=== PATIENT | male | born 1955 | race Caucasian/White ===

== ENCOUNTER 2023-05-29 12:02 | Outpatient (OUT) | payer OTHER, SELFPAY ==
--- NOTE | 2023-05-29 | XR_ITS ---
The [address] [address] Patient Name: ARVIND LEA MRN: [id number] date: 1955 Sex: M Assigned Patient Location: LAB Current Patient Location: LAB Accession/Order Number: [id number] Exam Date: 05/29/2023 12:29 Report Date: 05/29/2023 13:02 At the request of: SAUL MIN Procedure: XR knee LT 3V PROCEDURE: XR knee LT 3V HISTORY: Left knee pain; M25.562 , acute; no known injury COMPARISON: None. FINDINGS: BONES:Small periarticular degenerative osteophytes along margins of patella. No fracture or dislocation. SOFT TISSUES:No visible soft tissue swelling. EFFUSION:None visible. OTHER: Negative. XR/XR knee LT 3V IMPRESSION: 1. Minimal degenerative changes. 2. No acute bone abnormality. Electronically authenticated by: FERCHO DIAZ Date: 05/29/2023 13:02
[2023-05-29 14:05] LABS: D Dimer 23.95 mg/L FEU (<=0.59)
== END 2023-05-29 12:03 | disposition home or self-care (01) ==
LOC: LAB 12:06
PROVIDERS: PCP Family Medicine; Visit Provider Family Medicine
DX: M79.669 Pain in unspecified lower leg (principal); M25.562 Pain in left knee
CPT/HCPCS: 36415; 73562; 85378

== ENCOUNTER 2023-05-29 14:34 | Emergency (ER) | payer OTHER, SELFPAY ==
[2023-05-29 14:42] VITALS: BP 140/80; PULSE 67; RESP 14; TEMP 36.4; O2SAT 99
--- NOTE | 2023-05-29 14:51 | US_ITS ---
The [place] [id number] Patient Name: ARVIND LEA MRN: [id number] date: 1955 Sex: M Assigned Patient Location: ER Current Patient Location: ED.[facility] Accession/Order Number: [id number] Exam Date: 05/29/2023 15:00 Report Date: 05/29/2023 15:46 At the request of: OLGA LEONARDO Procedure: US venous doppler LE LT EXAM: Vascular unilateral lower extremity venous duplex. HISTORY: 67 years old Male presenting with left lower extremity pain and swelling. Elevated d-dimer TECHNIQUE: Multiple images are obtained in the transverse and longitudinal dimensions. Color, grayscale, and Doppler imaging was performed. COMPARISON: None FINDINGS: Visualized venous structures of the left lower extremity demonstrate normal compressibility, phasicity, and augmentation from the level of the common femoral vein to the calf veins. Focused Doppler analysis in the visualized common femoral, femoral, popliteal, anterior tibial, posterior tibial and peroneal veins reveals normal flow with distal augmentation. Color Doppler evaluation of these veins is also normal. US/US venous doppler LE LT IMPRESSION: No ultrasound evidence of deep venous thrombosis. Electronically authenticated by: ABAD ABEBE Date: 05/29/2023 15:46
--- NOTE | 2023-05-29 15:49 | ED_ITS ---
HPI - General Adult General Chief complaint: Recheck/Abnormal Lab/Rx Stated complaint: ABNORMAL LAB VALUE Time Seen by Provider: 05/29/23 14:51 Source: patient Mode of arrival: walk-in History of Present Illness HPI narrative: Patient is a 67-year-old male who presents to the emergency department for an elevated D-dimer as an outpatient. He states he called his PCP office and reported left knee pain for the last 2 weeks, increasing in the left anterior knee joint. Today he had an outpatient x-ray of the left knee and his doctor ordered an outpatient D-dimer which was elevated. He has no chest pain, shortness of breath. He denies any other focal medical complaints. He has had no redness of the left knee, no redness or swelling of the left calf. He denies any injury to the left leg. No numbness or tingling. Related Data Previous Rx's Medication Instructions Recorded ketorolac 10 mg tablet 10 mg PO TID PRN pain #8 tabs 05/29/23 methocarbamol 750 mg tablet 750 mg PO TID PRN pain #20 tabs 05/29/23 methylprednisolone 4 mg tablets in See Rx Instructions .Route 05/29/23 a dose pack (Medrol (Cm)) .COMPLEX #21 ea Allergies Allergy/AdvReac Type Severity Reaction Status Date / Time cefaclor [From [facility]] Allergy Severe Verified 05/29/23 14:48 Review of Systems ROS Constitutional Denies: fever or chills Ears, nose, mouth, and throat Denies: throat pain or nasal congestion Cardiovascular Denies: chest pain Respiratory Denies: shortness of breath Gastrointestinal Denies: nausea or vomiting Musculoskeletal Reports: extremity pain, extremity swelling and joint pain; Denies: back pain or neck pain Integumentary/Breast Denies: rash Neurological Denies: headache Exam Narrative Exam Narrative: Gen.: Awake, alert, in no distress Head: Normocephalic, atraumatic ENT: Moist mucous membranes Respiratory: No respiratory distress Extremities: Moves extremities equally, Normal flexion and extension of the left knee with no appreciable swelling, redness of the knee joint. No pain out of proportion on palpation. Mild tenderness over the left medial knee with no laxity of the patella. Calves are soft and nontender bilaterally Psych: Normal mood and affect Neuro: No focal neuro deficit Skin: Warm, dry, intact Constitutional Vital Signs, click to edit/add: Last Vital Signs Temp 97.6 F 05/29/23 14:42 Pulse 67 05/29/23 14:42 Resp 14 05/29/23 14:42 BP 140/80 05/29/23 14:42 Pulse Ox 99 05/29/23 14:42 O2 Del Method Room Air 05/29/23 14:42 Course Vital Signs Vital signs: Vital Signs Temperature 97.6 F 05/29/23 14:42 Pulse Rate 67 05/29/23 14:42 Respiratory Rate 14 05/29/23 14:42 Blood Pressure 140/80 05/29/23 14:42 Pulse Oximetry 99 05/29/23 14:42 Oxygen Delivery Method Room Air 05/29/23 14:42 Temperature 97.6 F 05/29/23 14:42 Pulse Rate 67 05/29/23 14:42 Respiratory Rate 14 05/29/23 14:42 Blood Pressure 140/80 05/29/23 14:42 Pulse Oximetry 99 05/29/23 14:42 Oxygen Delivery Method Room Air 05/29/23 14:42 Medical Decision Making MDM Narrative Medical decision making narrative: Ultrasound the left lower extremity is negative as expected based on clinical exam. X-rays show the patient has mild arthritic changes to the left knee. He is started on NSAIDs, steroid taper and muscle relaxant for stiffness. Follow- up with orthopedics if needed and return to the ER if symptoms change or worsen. Patient requested an [place] bandage to take home, he is planning on going back to work today. Medical Records Medical records reviewed: Yes I reviewed the patient's medical records Imaging Data Venous US: Attestation: I have reviewed the pertinent imaging results. Radiologist's impression: ITS Impressions Venous Doppler Study 05/29/23 14:51 IMPRESSION: No ultrasound evidence of deep venous thrombosis. Electronically authenticated by: ABAD ABEBE Date: 05/29/2023 15:46 Discharge Plan Discharge Chief Complaint: Recheck/Abnormal Lab/Rx Clinical Impression: Acute pain of left knee Patient Disposition: Home, Self-Care Time of Disposition Decision: 15:46 Condition: Good Prescriptions / Home Meds: New ketorolac 10 mg tablet 10 mg PO TID PRN (Reason: pain) Qty: 8 0RF methocarbamol 750 mg tablet 750 mg PO TID PRN (Reason: pain) Qty: 20 0RF methylprednisolone [Medrol (Cm)] 4 mg tablets,dose pack See Rx Instructions .ROUTE .COMPLEX Qty: 21 0RF Rx Instructions: Taper as directed Instructions: Knee Pain (ED) Stand Alone Forms: Portal Instructions Referrals: SAUL MIN [Primary Care Provider] - 1 week Maurilio Coley MD [Physician] - 1 week
[2023-05-29] MEDS: PREDNISONE 20 MG TABLET 60 MG PO (15:53)
[2023-05-29 15:57] VITALS: BP 128/88; PULSE 88; RESP 18; O2SAT 98
== END 2023-05-29 15:58 | disposition home or self-care (01) ==
PROVIDERS: Emergency Provider Emergency Medicine Emergency Medical Services; PCP Family Medicine
DX: M79.669 Pain in unspecified lower leg (principal); M25.562 Pain in left knee; R79.89 Other specified abnormal findings of blood chemistry; M79.89 Other specified soft tissue disorders
CPT/HCPCS: 36415; 73562; 85378; 93971; 99284; J7512

== ENCOUNTER 2025-03-01 11:39 | Outpatient (OUT) | payer MEDICARE, OTHER, SELFPAY ==
--- OUTSIDE RECORDS SUMMARY | 2025-03-01 11:49 | XMS_ITS | CCD ---
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 Attending Provider Saul Min Unavailable SAUL MIN Referring Unavailable DO Saul Min Primary Care Provider DO Saul Min Attending Provider [phone] Saul Min DO Primary Care Provider Saul Min DO Attending Provider Saul Min Attending Unavailable Saul Min Primary Care Unavailable Saul Min Admitting Unavailable Allergies Allergy Classification Reported Allergen(s) Allergy Type Date of Onset Reaction(s) Facility (2 sources) cefaclor; Translations: [CEFACLOR] Drug Allergy 2 [facility] Repository (8 sources) Cefaclor Drug Allergy sensitve scalp [facility] Repository Medications Current Medications Medication Drug Class(es) Dates Sig (Normalized) Sig (Original) Albuterol Sulfate 90 mcg/actuation HFA aerosol inhaler (1 source) Start: 03-27-2024 Albuterol Sulfate 90 mcg/actuation HFA aerosol inhaler Active 2 INH INHALATION EVERY 4-6 HOURS as needed for shortness of breath or wheezing 6.7 7 March 27, 2024 12:00am azithromycin 250 mg oral tablet (2 sources) Macrolide Antimicrobial Start: 06-06-2023 Azithromycin 250 MG 2 tablets on day 1 Orally then take 1 tablet daily on days 2-5 for 5 days May, Active CoQ-10 (7 sources) CoQ-10 Active CoQ-10 200 mg (2 sources) Start: 03-03-2024 CoQ-10 200 mg Active PO March 02, 2024 11:00pm Start: 03-03-2024 CoQ-10 200 mg Active PO March 03, 2024 12:00am gabapentin 300 mg oral capsule (15 sources) Anti-epileptic Agent Start: 03-03-2024 take 1 capsule by mouth three times daily Gabapentin 300 mg capsule Active 300 MG PO Three times daily March 03, 2024 7:35am Start: 11-06-2023 End: 03-03-2024 take 1 capsule by mouth three times daily Gabapentin 300 mg capsule Discontinued 0 .ROUTE .COMPLEX 90 November 06, 2023 7:15am March 03, 2024 7:35am TAKE 1 CAPSULE BY MOUTH THREE TIMES A DAY Start: 09-21-2023 End: 11-06-2023 take 1 capsule by mouth twice daily Gabapentin 300 mg capsule Discontinued 300 MG PO Twice daily September 20, 2023 11:00pm November 06, 2023 7:15am take 1 capsule by mo [facility] three times daily Gabapentin 300 MG TAKE 1 CAPSULE BY MOUTH THREE TIMES A DAY Active meclizine hydrochloride 25 mg oral tablet (9 sources) Antiemetic Start: 03-03-2024 take 1 tablet by mouth three times daily as needed Meclizine 25 mg tablet Active 25 MG PO Three times daily as needed March 02, 2024 11:00pm Start: 08-10-2016 take 1 tablet by solomon three times daily as needed Meclizine HCl 25 mg 1 tablet Orally tid prn Jul, Active methylPREDNISolone 4 mg oral tablet (1 source) Corticosteroid Start: 03-27-2024 take 1 tablet by mouth once Methylprednisolone (Medrol (Cm)) 4 mg tablets,dose pack Active 0 PO per package directions March 27, 2024 12:00am PO PER PKG DIR Slwojrnz-Fta-Ecfns-Vit K-Lycop (Men's 50 Plus Multivitamin) 400-20-370 mcg tablet (2 sources) Start: 03-03-2024 take 50-400 tablets by mouth once daily Kyfnrhss-Fuk-Notpd-Vit K-Lycop (Men's 50 Plus Multivitamin) 400-20-370 mcg tablet Active 1 TAB PO Daily March 02, 2024 11:00pm Start: 03-03-2024 take 50-400 tablets by mouth once daily Bvtqbucp-Cxy-Lvokr-Vit K-Lycop (Men's 50 Plus Multivitamin) 400-20-370 mcg tablet Active 1 TAB PO Daily March 03, 2024 12:00am Volcano-3 Fatty Acids-Fish Oil (Fish Oil) 300-500 mg capsule (1 source) Start: 03-27-2024 Volcano-3 Fatty Acids-Fish Oil (Fish Oil) 300-500 mg capsule Active CAP PO March 27, 2024 12:00am Red Yeast Rice (7 sources) Red Yeast Rice A ctive red yeast rice 600 mg oral capsule (5 sources) Start: 03-03-2024 take 1 capsule by mouth once Red Yeast Rice 600 mg capsule Active 1200 MG PO Once March 03, 2024 7:17am give with meal/snack Start: 03-03-2024 take 1200 mg by mouth once Red Yeast Rice Active 1200 MG PO Once March 03, 2024 8:17am give with meal/snack Start: 09-21-2023 End: 03-03-2024 take 1 capsule by mouth twice daily Red Yeast Rice 600 mg capsule Discontinued 600 MG PO Twice daily September 20, 2023 11:00pm March 03, 2024 7:20am give with meal/snack Vitamin D (7 sources) Vitamin D Active Completed/Discontinued Medications Medication Drug Class(es) Dates Sig (Normalized) Sig (Original) amoxicillin 875 mg / clavulanate 125 mg oral tablet (3 sources) Penicillin-class Antibacterial Start: 09-21-2023 End: 03-03-2024 take 1 tablet by mouth twice daily Amoxicillin-Pot Clavulanate 875-125 mg tablet Discontinued 1 TAB PO Twice daily 08 03September 20, 2023 11:00pm March 03, 2024 7:16am B Complex - (7 sources) Start: 08-01-2018 take 1 tablet by mouth once daily as needed B Complex - 1 tablet Orally qd Jul, Not-Taking/PRN Start: 08-01-2018 take 1 tablet by solomon th once daily B Complex - 1 tablet Orally qd Jul, Not-Taking fluticasone propionate 0.05 mg/actuat metered dose nasal spray (7 sources) Corticosteroid take 1 spray(s) nasal route once daily as needed Fluticasone Propionate 50 MCG/ACT USE 1 SPRAY IN EACH NOSTRIL ONCE DAILY for 30 prn Not-Taking/PRN take 1 spray(s) nasa l route once daily as needed Fluticasone Propionate 50 MCG/ACT USE 1 SPRAY IN EACH NOSTRIL ONCE DAILY for 30 prn Not-Taking magnesium oxide 400 mg oral tablet (7 sources) Start: 08-01-2018 take 1 tablet by mouth every twenty-four hours Magnesium Oxide 400 MG 1 tablet Orally Once a day Jul, Not-Taking/PRN Multi Vitamin Mens (7 sources) take 1 tablet by mouth once daily as needed Multi Vitamin Mens 1 tablet Orally Once a day Not-Taking/PRN take 1 tablet by mouth once braden y Multi Vitamin Mens 1 tablet Orally Once a day Not-Taking Volcano 3 1000 MG (7 sources) take 1 capsule by mo uth once daily as needed Volcano 3 1000 MG 1 capsule Orally Once a day Not-Taking/PRN take 1 capsule by mouth once kenyetta ly Volcano 3 1000 MG 1 capsule Orally Once a day Not-Taking Problems Active Problems Problem Classification Problem Date Documented Da te Episodic/Chronic Conditions associated with dizziness or vertigo (8 sources) Meniere's disease; Translations: [Meniere's disease, unspecified ear] Chronic Disorders of lipid metabolism (12 sources) Hyperlipidemia; Translations: [Hyperlipidemia, unspecified] Chronic Other connective tissue disease (1 source) Pain in unspecified hand Episodic Other connective tissue disease (1 source) Pain in unspecified lower leg Episodic Other connective tissue disease (2 sources) Heel pain; Translations: [Pain in right foot] 03-03-2024 Episodic Other connective tissue disease (2 sources) Foot pain; Translations: [Pain in right foot] 03-03-2024 Episodic Other connective tissue disease (4 sources) Pain in right foot; Translations: [Pain in limb] 03-03-2024 Episodic Other gastrointestinal disorders (1 source) Diarrhea, unspecified; Translations: [DIARRHEA UNSPECIFIED] Onset: 06-05-2021 Episodic Other inflammatory condition of skin (7 sources) Psoriasis; Translations: [Psoriasis, unspecified] Chronic Other nervous system disorders (2 sources) Paresthesia of upper limb; Translations: [Anesthesia of skin] 03-03-2024 Episodic Other nervous system disorders (2 sources) Anesthesia of skin; Translations: [Disturbance of skin sensation] 03-03-2024 Episodic Other non-traumatic joint disorders (5 sources) Pain in left knee; Translations: [Left knee pain] Episodic Other nutritional; endocrine; and metabolic disorders (3 sources) Abnormal weight gain; Translations: [Abnormal weight gain] Episodic Other nutritional; endocrine; and metabolic disorders (2 sources) Weight increased; Translations: [Abnormal weight gain] 03-03-2024 Episodic Other screening for suspected conditions (not mental disorders or infectious disease) (12 sources) Encounter for screening for malignant neoplasm of prostate; Translations: [Patient encounter status] Episodic Other upper respiratory disease (8 sources) Allergic rhinitis; Translations: [Allergic rhinitis, unspecified] 03-27-2024 Chronic Other upper respiratory disease (1 source) Allergic rhinitis, unspecified; Translations: [Allergic rhinitis, cause unspecified] 03-27-2024 Chronic Other upper respiratory disease (1 source) Nasal congestion; Translations: [NASAL CONGESTION] Onset: 06-05-2021 Episodic Other upper respiratory infections (3 sources) Sinusitis; Translations: [Chronic sinusitis, unspecified] 09-21-2023 Chronic Spondylosis; intervertebral disc disorders; other back problems (5 sources) Cervicalgia; Translations: [Neck pain] Episodic Sprains and strains (1 source) Partial division, tendo calcaneus (Achilles tendon); Translations: [Strain of right Achilles tendon, initial encounter] 03-27-2024 Episodic Unclassified (2 sources) Family history of malignant neoplasm of digestive organs; Translations: [Family history of malignant neoplasm of breast] Onset: 11-13-2017 Episodic Unclassified (2 sources) CONTACT W/AND (SUSP) EXPOS COVID-19; Translations: [CONTACT W/AND (SUSP) EXPOS COVID-19] Onset: 06-05-2021 Viral infection (1 source) COVID-19; Translations: [COVID-19] Onset: 06-05-2021 Past or Other Problems Problem Classification Problem Date Documented Da te Episodic/Chronic Unclassified (1 source) CONTACT W/AND (SUSP) EXPOS COVID-19; Translations: [CONTACT W/AND (SUSP) EXPOS COVID-19] Onset: 06-01-2021 Results Test Name Value Interpretation Reference Range Facility Alanine aminotransferase [En zymatic activity/volume] in Serum or PlasmaOrdered By: Saul Min on 02-28-2024 ALT [Catalytic activity/Vol] 23 U/L Normal [facility] Comment on above: Performed By: #### T SH3, CMP, LIPID, CBC, PSAS #### [facility] [address] ALT [Catalytic activity/Vol] Alanine aminotransferase [Enzymatic activity/volume] in Serum or Plasma [facility] Albumin [Mass/volume] in Ser um or Plasma by Bromocresol green (BCG) dye binding methoOrdered By: Saul Min on 02-28-2024 Albumin BCG dye [Mass/Vol] 3.8 g/dL 3.5-5.7 [facility] Albumin BCG dye [Mass/Vol] Albumin [Mass/volume] in Serum or Plasma by Bromocresol green (BCG) dye binding metho 3.5-5.7 [facility] Alkaline phosphatase [Enzyma tic activity/volume] in Serum or PlasmaOrdered By: Saul Min on 02-28-2024 ALP [Catalytic activity/Vol] 57 U/L Normal [facility] Comment on above: Performed By: #### T SH3, CMP, LIPID, CBC, PSAS #### [facility] [address] [place] [address] ALP [Catalytic activity/Vol] Alkaline phosphatase [Enzymatic activity/volume] in Serum or Plasma [facility] Appearance of UrineOrdered B y: Saul Min on 02-28-2024 Appearance (U) Urine appearance Clear [facility] Aspartate aminotransferase [ Enzymatic activity/volume] in Serum or PlasmaOrdered By: Saul Min on 02-28-2024 AST [Catalytic activity/Vol] 22 U/L Normal [facility] Comment on above: Performed By: #### T SH3, CMP, LIPID, CBC, PSAS #### [facility] [address] [place] [address] AST [Catalytic activity/Vol] Aspartate aminotransferase [Enzymatic activity/volume] in Serum or Plasma [facility] Automated basophil %Ordered By: Saul Min on 02-28-2024 Basophils/100 WBC (Bld) 0.9 % Normal . [facility] Comment on above: Performed By: #### T SH3, CMP, LIPID, CBC, PSAS #### [address] Automated basophil countOrde red By: Saul Min on 02-28-2024 Basophils (Bld) [#/Vol] 0.1 10*3/uL Normal 0.0-0.2 [facility] Comment on above: Result Comment: PERF ORMED BY: [place] [address] PATHOLOGIST [employer] INTERN HODAN MEHTA M.D. Performed By: #### T SH3, CMP, LIPID, CBC, PSAS #### [address] Automated blood monocyte cou ntOrdered By: Saul Min on 02-28-2024 Monocytes (Bld) [#/Vol] 0.6 10*3/uL Normal 0.0-0.8 [facility] Comment on above: Performed By: #### T SH3, CMP, LIPID, CBC, PSAS #### [address] Automated eosinophil %Ordere d By: Saul Min on 02-28-2024 Eosinophils/100 WBC (Bld) 3.4 % Normal . [facility] Comment on above: Performed By: #### T SH3, CMP, LIPID, CBC, PSAS #### [address] Automated eosinophil countOr dered By: Saul Min on 02-28-2024 Eosinophils (Bld) [#/Vol] 0.3 10*3/uL Normal 0.0-0.45 [facility] Comment on above: Performed By: #### T SH3, CMP, LIPID, CBC, PSAS #### [address] Automated monocyte %Ordered By: Saul Min on 02-28-2024 Monocytes/100 WBC (Bld) 8.7 % Normal . [facility] Comment on above: Performed By: #### T SH3, CMP, LIPID, CBC, PSAS #### [facility] [address] Automated neutrophil %Ordere d By: Saul Min on 02-28-2024 Neutrophils/100 WBC (Bld) 47.0 % Normal . [facility] Comment on above: Performed By: #### T SH3, CMP, LIPID, CBC, PSAS #### [facility] [address] Bacteria [Presence] in Urine by AutomatedOrdered By: Saul Min on 02-28-2024 Bacteria Auto Ql (U) None seen [HPF] None Seen [facility] Bacteria Auto Ql (U) Bacteria [Presence] in Urine by Automated None Seen [facility] Basophils Auto (Bld) [#/Vol] Ordered By: Saul Min on 02-28-2024 Basophils (Bld) [#/Vol] Automated basophil count 0.0-0.2 [facility] Basophils/100 WBC Auto (Bld) Ordered By: Saul Min on 02-28-2024 Basophils/100 WBC (Bld) Automated basophil % . [facility] Bilirubin Test strip Ql (U)O rdered By: Saul Min on 02-28-2024 Bilirubin Ql (U) Negative Negative [facility] Bilirubin Ql (U) Bilirubin.total [Presence] in Urine by Test strip Negative [facility] Bilirubin.total [Mass/volume ] in Serum or PlasmaOrdered By: Saul Min on 02-28-2024 Bilirubin [Mass/Vol] 0.7 mg/dL Normal 0.3-1.0 [facility] Comment on above: Performed By: #### T SH3, CMP, LIPID, CBC, PSAS #### [facility] [address] Bilirubin [Mass/Vol] Bilirubin.total [Mass/volume] in Serum or Plasma 0.3-1.0 [facility] Calcium [Mass/volume] in Ser um or PlasmaOrdered By: Saul Min on 02-28-2024 Calcium [Mass/Vol] 8.7 mg/dL Normal 8.6-10.3 [facility] Comment on above: Performed By: #### T SH3, CMP, LIPID, CBC, PSAS #### [facility] [address] [place] [address] [place] Calcium [Mass/Vol] Calcium [Mass/volume ] in Serum or Plasma 8.6-10.3 [facility] Carbon dioxide, total [Moles /volume] in Serum or PlasmaOrdered By: Saul Min on 02-28-2024 CO2 [Moles/Vol] 30.8 mmol/L Normal 21.0-31.0 [facility] Comment on above: Performed By: #### T SH3, CMP, LIPID, CBC, PSAS #### [facility] [address] CO2 [Moles/Vol] Carbon dioxide, tota l [Moles/volume] in Serum or Plasma 21.0-31.0 [facility] Chloride [Moles/volume] in S lisbeth or PlasmaOrdered By: Saul Min on 02-28-2024 Chloride [Moles/Vol] 104 mmol/L Normal 98-107 [facility] Comment on above: Performed By: #### T SH3, CMP, LIPID, CBC, PSAS #### [facility] [address] [place] [id number] [place] Chloride [Moles/Vol] Chloride [Moles/vol ume] in Serum or Plasma 98-107 [facility] Cholesterol [Mass/volume] in Serum or PlasmaOrdered By: Saul Min on 02-28-2024 Cholesterol [Mass/Vol] 188 mg/dL Normal 140-200 [facility] Comment on above: Chol less than 200 m g/dl low riskChol 201-239 mg/dl borderline riskChol 240 mg/dl and greater high risk Result Comment: Chol less than 200 mg/dl low risk Chol 201-239 mg/dl borderline risk Chol 240 mg/dl and greater high risk Performed By: #### T SH3, CMP, LIPID, CBC, PSAS #### [facility] [address] Cholesterol [Mass/Vol] Cholesterol [Mass/volume] in Serum or Plasma 140-200 [facility] Comment on above: Chol less than 200 m g/dl low riskChol 201-239 mg/dl borderline riskChol 240 mg/dl and greater high risk Cholesterol in HDL [Mass/vol ume] in Serum or PlasmaOrdered By: Saul Min on 02-28-2024 Cholesterol in HDL [Mass/Vol] Serum or plasma high density lipoprotein (HDL) cholesterol measurement [facility] Comment on above: HDL CHOL ATP-III CLA SSIFICATION Cardiovascular RiskHDL > or equal to 60 mg/dL LOWHDL < 40 mg/dL HIGH Cholesterol in LDL Calc [Mas s/Vol]Ordered By: Saul Min on 02-28-2024 Cholesterol in LDL [Mass/Vol] 134 mg/dL High 0-100 [facility] Comment on above: LDL ATP III CLASSIFI CATIONLDL less than 100 mg/dL OptimalLDL 100-129 mg/dL Near or above optimalLDL 130-159 mg/dL Borderline highLDL 160-189 mg/dL HighLDL greater than 189 mg/dL Very high Cholesterol in LDL [Mass/Vol] Cholesterol in LDL [Mass/volume] in Serum or Plasma by calculation High 0-100 [facility] Comment on above: LDL ATP III CLASSIFI CATIONLDL less than 100 mg/dL OptimalLDL 100-129 mg/dL Near or above optimalLDL 130-159 mg/dL Borderline highLDL 160-189 mg/dL HighLDL greater than 189 mg/dL Very high Cholesterol in VLDL Calc [Ma ss/Vol]Ordered By: Saul Min on 02-28-2024 Cholesterol in VLDL [Mass/Vol] 17 mg/dL [facility] Cholesterol in VLDL [Mass/Vol] Cholesterol in VLDL [Mass/volume] in Serum or Plasma by calculation [facility] Color Auto (U)Ordered By: Johnnie Min on 02-28-2024 Color (U) Color of Urine by Auto Yellow [facility] Color of Urine by AutoOrdere d By: Saul Min on 02-28-2024 Color (U) Light-yellow Normal Yellow [facility] Comment on above: Order Comment: Name Collection Type:: Clean-Voided Midstream Performed By: #### C UU, ADDONUAPLUS #### [address] Complete Blood Count Auto Di ffon 02-28-2024 Mean Corpuscular HGB Conc 34.5 g/dL Normal 32.5-35.6 [facility] Comment on above: Performed By: #### T SH3, CMP, LIPID, CBC, PSAS #### [address] NRBC% 0.3 /100{WBC} Normal 0-0.5 [facility] Comment on above: Performed By: #### T SH3, CMP, LIPID, CBC, PSAS #### [address] Comprehensive Metabolic Pane franky 02-28-2024 Albumin [Mass/Vol] 3.8 g/dL Normal 3.5-5.7 [facility] Comment on above: Performed By: #### T SH3, CMP, LIPID, CBC, PSAS #### [address] GFR/1.73 sq M.predicted MDRD (S/P/Bld) [Vol rate/Area] mL/min/{1.73_m2} Normal [facility] Comment on above: Performed By: #### T SH3, CMP, LIPID, CBC, PSAS #### [address] Creatinine [Mass/volume] in Serum or PlasmaOrdered By: Saul Min on 02-28-2024 Creatinine [Mass/Vol] 1.30 mg/dL Normal 0.70-1.30 [facility] Comment on above: Performed By: #### T SH3, CMP, LIPID, CBC, PSAS #### [address] Creatinine [Mass/Vol] Creatinine [Mass/v olume] in Serum or Plasma 0.70-1.30 [facility] Dipstick and Microscopicon 1 Bacteria,Urine None Seen Normal None Seen [facility] Comment on above: Order Comment: Name Collection Type:: Clean-Voided Midstream Performed By: #### C UU, ADDONUAPLUS #### [address] Bilirubin,Urine Negative Normal Negative [facility] Comment on above: Order Comment: Name Collection Type:: Clean-Voided Midstream Performed By: #### C UU, ADDONUAPLUS #### [address] Glucose Ql (U) Normal Normal Normal [facility] Comment on above: Order Comment: Name Collection Type:: Clean-Voided Midstream Performed By: #### C UU, ADDONUAPLUS #### [address] Hyaline Casts,Urine None Normal 0-8 [facility] Comment on above: Order Comment: Name Collection Type:: Clean-Voided Midstream Result Comment: PERF ORMED BY: [place] [address] PATHOLOG[employer]N HODAN MEHTA M.D. Performed By: #### C UU, ADDONUAPLUS #### [address] Nitrite,Urine Negative Normal Negative [facility] Comment on above: Order Comment: Name Collection Type:: Clean-Voided Midstream Performed By: #### C UU, ADDONUAPLUS #### [address] Occult Blood,Urine Negative Normal Negative [facility] Comment on above: Order Comment: Name Collection Type:: Clean-Voided Midstream Performed By: #### C UU, ADDONUAPLUS #### [place] [address] [place] Protein,Urine Negative Normal Negative [facility] Comment on above: Order Comment: Name Collection Type:: Clean-Voided Midstream Performed By: #### C UU, ADDONUAPLUS #### [place] [address] [place] RBC,Urine 1-2 Normal 0-4 [facility] Comment on above: Order Comment: Name Collection Type:: Clean-Voided Midstream Performed By: #### C UU, ADDONUAPLUS #### [address] [place] [address] [place] Specificy [place],Urine 1.014 Normal 1.00 1-1.03 0 [facility] Comment on above: Order Comment: Name Collection Type:: Clean-Voided Midstream Performed By: #### C UU, ADDONUAPLUS #### [facility] [address] Urobilinogen,Urine Normal Normal Normal [facility] Comment on above: Order Comment: Name Collection Type:: Clean-Voided Midstream Performed By: #### C UU, ADDONUAPLUS #### [facility] [address] WBC,Urine 1-2 Normal 0-4 [facility] Comment on above: Order Comment: Name Collection Type:: Clean-Voided Midstream Performed By: #### C UU, ADDONUAPLUS #### [address] Eosinophils Auto (Bld) [#/Vo l]Ordered By: Saul Min on 02-28-2024 Eosinophils (Bld) [#/Vol] Automated eosinophil count 0.0-0.45 [facility] Eosinophils/100 WBC Auto (Bl d)Ordered By: Saul Min on 02-28-2024 Eosinophils/100 WBC (Bld) Automated eosinophil % . [facility] Epithelial cells.squamous [# /area] in Urine sediment by Automated countOrdered By: Saul Min on 02-28-2024 Epithelial cells.squamous Auto (Urine sed) [#/Area] N/A [facility] Epithelial cells.squamous Auto (Urine sed) [#/Area] Epithelial cells.squamous [#/area] in Urine sediment by Automated count [facility] Erythrocyte distribution wid th Auto (RBC) [Ratio]Ordered By: Saul Min on 02-28-2024 Erythrocyte distribution width (RBC) [Ratio] Erythrocyte distribution width [Ratio] by Automated count 12.0-14.8 [facility] Erythrocyte distribution wid th [Ratio] by Automated countOrdered By: Saul Min on 02-28-2024 Erythrocyte distribution width (RBC) [Ratio] 13.9 % Normal 12.0-14.8 [facility] Comment on above: Performed By: #### T SH3, CMP, LIPID, CBC, PSAS #### [facility] [address] [place] [address] [place] Erythrocytes [#/area] in Uri ne sediment by Automated countOrdered By: Saul Min on 02-28-2024 RBC Auto (Urine sed) [#/Area] 1-2 [HPF] 0-4 [facility] RBC Auto (Urine sed) [#/Area] Erythrocytes [#/area] in Urine sediment by Automated count 0-4 [facility] Erythrocytes [#/volume] in B lood by Automated countOrdered By: Saul Min on 02-28-2024 RBC (Bld) [#/Vol] 4.71 10*6/uL Normal 3.90-5.60 [facility] Comment on above: Performed By: #### T SH3, CMP, LIPID, CBC, PSAS #### [facility] [address] Globulin Calc (S) [Mass/Vol] Ordered By: Saul Min on 02-28-2024 Globulin (S) [Mass/Vol] Serum globulin measurement by calculation (mass/volume) [facility] Glucose [Mass/volume] in Ser um or PlasmaOrdered By: Saul Min on 02-28-2024 Glucose [Mass/Vol] 84 mg/dL Normal 70-100 [facility] Comment on above: ADA recommended refe rence rangeRandom Glucose Reference Range is dependent on time and content of last meal. Glucose of more than 200 mg/dL in a nonstressed, ambulatory subject supports the diagnosis of Diabetes Mellitus. Result Comment: [place] Glucose Reference Range is dependent on time and content of last meal. Glucose of more than 200 mg/dL in a nonstressed, ambulatory subject supports the diagnosis of Diabetes Mellitus. ADA recommended reference range Performed By: #### T SH3, CMP, LIPID, CBC, PSAS #### [facility] [address] Glucose [Mass/Vol] Glucose [Mass/volume ] in Serum or Plasma 70-100 [facility] Comment on above: ADA recommended refe rence rangeRandom Glucose Reference Range is dependent on time and content of last meal. Glucose of more than 200 mg/dL in a nonstressed, ambulatory subject supports the diagnosis of Diabetes Mellitus. Glucose [Mass/volume] in Uri ne by Test stripOrdered By: Saul Min on 02-28-2024 Glucose Test strip (U) [Mass/Vol] Normal mg/dL Normal [facility] Glucose Test strip (U) [Mass/Vol] Glucose [Mass/volume] in Urine by Test strip Normal [facility] Hematocrit Auto (Bld) [Volum e fraction]Ordered By: Saul Min on 02-28-2024 Hematocrit (Bld) [Volume fraction] Hematocrit [Volume Fraction] of Blood by Automated count 38.8-50.0 [facility] Hematocrit [Volume Fraction] of Blood by Automated countOrdered By: Saul Min on 02-28-2024 Hematocrit (Bld) [Volume fraction] 42.2 % Normal 38.8-50.0 [facility] Comment on above: Performed By: #### T SH3, CMP, LIPID, CBC, PSAS #### [facility] [address] Hemoglobin Test strip Ql (U) Ordered By: Saul Min on 02-28-2024 Hemoglobin Ql (U) Negative Negative [facility] Hemoglobin Ql (U) Hemoglobin [Presence ] in Urine by Test strip Negative [facility] Hemoglobin [Mass/volume] in BloodOrdered By: Saul Min on 02-28-2024 Hemoglobin (Bld) [Mass/Vol] 14.6 g/dL Normal 13.0-17.0 [facility] Comment on above: Performed By: #### T SH3, CMP, LIPID, CBC, PSAS #### [facility] [address] Hemoglobin (Bld) [Mass/Vol] Hemoglobin [Mass/volume] in Blood 13.0-17.0 [facility] Hyaline casts [#/area] in Ur ine sediment by Automated countOrdered By: Saul Min on 02-28-2024 Hyaline casts Auto (Urine sed) [#/Area] None [LPF] 0-8 [facility] Hyaline casts Auto (Urine sed) [#/Area] Hyaline casts [#/area] in Urine sediment by Automated count 0-8 [facility] Ketones Test strip Ql (U)Ord ered By: Saul Min on 02-28-2024 Ketones Ql (U) Ketones [Presence] i n Urine by Test strip Negative [facility] Ketones [Presence] in Urine by Test stripOrdered By: Saul Min on 02-28-2024 Ketones Ql (U) Negative Normal Negative [facility] Comment on above: Order Comment: Name Collection Type:: Clean-Voided Midstream Performed By: #### C UU, ADDONUAPLUS #### [facility] [address] [place] [address] Laboratory - Microbiology an d Antimicrobial susceptibilityOrdered By: Saul Min on 02-28-2024 Bacteria identified Cx Nom (U) No Growth 2 Days [facility] Leukocyte esterase [Presence ] in Urine by Test stripOrdered By: Saul Min on 02-28-2024 Leukocyte esterase Test strip Ql (U) Negative Normal Negative [facility] Comment on above: Order Comment: Name Collection Type:: Clean-Voided Midstream Performed By: #### C UU, ADDONUAPLUS #### [facility] [address] [place] [address] Leukocyte esterase Test strip Ql (U) Leukocyte esterase [Presence] in Urine by Test strip Negative [facility] Leukocytes [#/area] in Urine sediment by Automated countOrdered By: Saul Min on 02-28-2024 WBC Auto (Urine sed) [#/Area] 1-2 [HPF] 0-4 [facility] WBC Auto (Urine sed) [#/Area] Leukocytes [#/area] in Urine sediment by Automated count 0-4 [facility] Leukocytes [#/volume] correc sulma for nucleated erythrocytes in Blood by Automated counOrdered By: Saul Min on 02-28-2024 WBC corrected for nucl RBC Auto (Bld) [#/Vol] 7.4 10*3/uL 4.1-10.5 [facility] WBC corrected for nucl RBC Auto (Bld) [#/Vol] Leukocytes [#/volume] corrected for nucleated erythrocytes in Blood by Automated coun 4.1-10.5 [facility] Leukocytes [#/volume] in Blo od by Automated countOrdered By: Saul Min on 02-28-2024 WBC (Bld) [#/Vol] 7.4 10*3/uL Normal 4.1-10.5 [facility] Comment on above: Performed By: #### T SH3, CMP, LIPID, CBC, PSAS #### [facility] [address] Lipid Panelon 02-28-2024 LDL Cholesterol,Calculated 134 mg/dL High 0-100 [facility] Comment on above: Result Comment: LDL ATP III CLASSIFICATION LDL less than 100 mg/dL Optimal LDL 100-129 mg/dL Near or above optimal LDL 130-159 mg/dL Borderline high LDL 160-189 mg/dL High LDL greater than 189 mg/dL Very high Performed By: #### T SH3, CMP, LIPID, CBC, PSAS #### [facility] [address] Triglyceride w/Reflex 89 mg/dL Normal 0-149 [facility] Comment on above: Result Comment: TRIG ATP III CLASSIFICATION TRIG less than 150 mg/dL Normal TRIG 150-199 mg/dL Borderline high TRIG 200-500 mg/dL High TRIG greater than 500 mg/dL Very high Standard traceable to the Center for Disease Conrtrol and Prevention (CDC) test method. Performed By: #### T SH3, CMP, LIPID, CBC, PSAS #### [address] VLDL CHOLESTEROL 17 mg/dL Normal [facility] Comment on above: Performed By: #### T SH3, CMP, LIPID, CBC, PSAS #### [facility] [address] Lymphocytes Auto (Bld) [#/Vo l]Ordered By: Saul Min on 02-28-2024 Lymphocytes (Bld) [#/Vol] Lymphocytes [#/volume] in Blood by Automated count 1.00-4.8 [facility] Lymphocytes [#/volume] in Bl ood by Automated countOrdered By: Saul Min on 02-28-2024 Lymphocytes (Bld) [#/Vol] 3.0 10*3/uL Normal 1.00-4.8 [facility] Comment on above: Performed By: #### T SH3, CMP, LIPID, CBC, PSAS #### [facility] [address] [place] [address] Lymphocytes/100 WBC Auto (Bl d)Ordered By: Saul Min on 02-28-2024 Lymphocytes/100 WBC (Bld) Lymphocytes/100 leukocytes in Blood by Automated count . [facility] Lymphocytes/100 leukocytes i n Blood by Automated countOrdered By: Saul Min on 02-28-2024 Lymphocytes/100 WBC (Bld) 40.0 % Normal . [facility] Comment on above: Performed By: #### T SH3, CMP, LIPID, CBC, PSAS #### [address] MCH Auto (RBC) [Entitic mass ]Ordered By: Saul Min on 02-28-2024 MCH (RBC) [Entitic mass] MCH [Entitic mass] by Automated count 27.5-35.2 [facility] MCH [Entitic mass] by Automa sulma countOrdered By: Saul Min on 02-28-2024 MCH (RBC) [Entitic mass] 31.0 pg Normal 27.5-35.2 [facility] Comment on above: Performed By: #### T SH3, CMP, LIPID, CBC, PSAS #### [facility] [address] [place] [address] MCHC Auto (RBC) [Mass/Vol]Or dered By: Saul Min on 02-28-2024 MCHC (RBC) [Mass/Vol] 34.5 g/dL 32.5-35.6 [facility] MCHC (RBC) [Mass/Vol] MCHC [Mass/volume] by Automated count 32.5-35.6 [facility] MCV Auto (RBC) [Entitic vol] Ordered By: Saul Min on 02-28-2024 MCV (RBC) [Entitic vol] MCV [Entitic vol ume] by Automated count 83.5-101 [facility] MCV [Entitic volume] by Auto mated countOrdered By: Saul Min on 02-28-2024 MCV (RBC) [Entitic vol] 89.7 fL Normal 83.5-101 [facility] Comment on above: Performed By: #### T SH3, CMP, LIPID, CBC, PSAS #### [facility] [address] Monocytes Auto (Bld) [#/Vol] Ordered By: Saul Min on 02-28-2024 Monocytes (Bld) [#/Vol] Automated blood monocyte count 0.0-0.8 [facility] Monocytes/100 WBC Auto (Bld) Ordered By: Saul Min on 02-28-2024 Monocytes/100 WBC (Bld) Automated monocyte % . [facility] Neutrophils Auto (Bld) [#/Vo l]Ordered By: Saul Min on 02-28-2024 Neutrophils (Bld) [#/Vol] Neutrophils [#/volume] in Blood by Automated count 1.8-7.7 [facility] Neutrophils [#/volume] in Bl ood by Automated countOrdered By: Saul Min on 02-28-2024 Neutrophils (Bld) [#/Vol] 3.5 10*3/uL Normal 1.8-7.7 [facility] Comment on above: Performed By: #### T SH3, CMP, LIPID, CBC, PSAS #### [facility] [address] [place] [id number] [place] Neutrophils/100 WBC Auto (Bl d)Ordered By: Saul Min on 02-28-2024 Neutrophils/100 WBC (Bld) Automated neutrophil % . [facility] Nitrite Test strip Ql (U)Ord ered By: Saul Min on 02-28-2024 Nitrite Ql (U) Negative Negative [facility] Nitrite Ql (U) Nitrite [Presence] i n Urine by Test strip Negative [facility] No Panel InformationOrdered By: Saul Min on 02-28-2024 Estimated GFR (CKD-EPI) > 60.0 mL/Min [facility] Creatinine Clearance (Chem N/A [facility] Nucleated erythrocytes [Pres ence] in Blood by Automated countOrdered By: Saul Min on 02-28-2024 Nucleated RBC Auto Ql (Bld) 0.3 /100{WBC} 0-0.5 [facility] Nucleated RBC Auto Ql (Bld) Nucleated erythrocytes [Presence] in Blood by Automated count 0-0.5 [facility] PSA Screen (Yearly Only)on 1 PSA Screen (Yearly Only) 1.880 ng/mL Normal 0.000-4.00 0 [facility] Comment on above: Order Comment: Is pa tient <50 yrs? Medicare does not pay <50.: N What is the date of the last PSA Screen?: N/A Is Medicare the insurance?: N Did you verify eligibility (Dx Time) check TestViewGp: YES TO ALL Result Comment: Swati golden tumor marker results determined by assays using different manufacturers or methods may not be comparable. [facility] brokerage clerk and method: [employer] DXI, CHEMILUMINESCENT IMMUNOASSAY. PERFORMED BY: [place] [address] PATHOLOGIST [employer] HODAN MEHTA M.D. Performed By: #### T SH3, CMP, LIPID, CBC, PSAS #### [facility] [address] Platelet mean volume Auto (B ld) [Entitic vol]Ordered By: Saul Min on 02-28-2024 Platelet mean volume (Bld) [Entitic vol] Platelet mean volume [Entitic volume] in Blood by Automated count 6.6-10.1 [facility] Platelet mean volume [Entiti c volume] in Blood by Automated countOrdered By: Saul Min on 02-28-2024 Platelet mean volume (Bld) [Entitic vol] 7.5 fL Normal 6.6-10.1 [facility] Comment on above: Performed By: #### T SH3, CMP, LIPID, CBC, PSAS #### [facility] [address] [place] [address] [place] Platelets Auto (Bld) [#/Vol] Ordered By: Saul Min on 02-28-2024 Platelets (Bld) [#/Vol] Platelets [#/vol ume] in Blood by Automated count 150-450 [facility] Platelets [#/volume] in Bloo d by Automated countOrdered By: Saul Min on 02-28-2024 Platelets (Bld) [#/Vol] 180 10*3/uL Normal 150-450 [facility] Comment on above: Performed By: #### T SH3, CMP, LIPID, CBC, PSAS #### [facility] [address] Potassium [Moles/volume] in Serum or PlasmaOrdered By: Saul Min on 02-28-2024 Potassium [Moles/Vol] 4.4 mmol/L Normal 3.5-5.1 [facility] Comment on above: Performed By: #### T SH3, CMP, LIPID, CBC, PSAS #### [facility] [address] Potassium [Moles/Vol] Potassium [Moles/v olume] in Serum or Plasma 3.5-5.1 [facility] Prostate specific Ag [Mass/v olume] in Serum or PlasmaOrdered By: Saul Min on 02-28-2024 Prostate specific Ag [Mass/Vol] 1.880 ng/mL 0.000-4.00 0 [facility] Comment on above: Serial tumor marker results determined by assays using different manufacturers or methods may not be comparable.[facility] brokerage clerk and method:[employer] DXI, CHEMILUMINESCENT IMMUNOASSAY. Prostate specific Ag [Mass/Vol] Prostate specific Ag [Mass/volume] in Serum or Plasma 0.000-4.00 0 [facility] Comment on above: Serial tumor marker results determined by assays using different manufacturers or methods may not be comparable.[facility] brokerage clerk and method:[employer] DXI, CHEMILUMINESCENT IMMUNOASSAY. Protein Test strip (U) [Mass /Vol]Ordered By: Saul Min on 02-28-2024 Protein (U) [Mass/Vol] Negative Negative [facility] Protein (U) [Mass/Vol] Protein [Mass/vol ume] in Urine by Test strip Negative [facility] Protein [Mass/volume] in Ser um or PlasmaOrdered By: Saul Min on 02-28-2024 Protein [Mass/Vol] 6.6 g/dL Normal 6.4-8.9 [facility] Comment on above: Performed By: #### T SH3, CMP, LIPID, CBC, PSAS #### [facility] [address] Protein [Mass/Vol] Protein [Mass/volume ] in Serum or Plasma 6.4-8.9 [facility] RBC Auto (Bld) [#/Vol]Ordere d By: Saul Min on 02-28-2024 RBC (Bld) [#/Vol] Erythrocytes [#/volu me] in Blood by Automated count 3.90-5.60 [facility] Serum globulin measurement b y calculation (mass/volume)Ordered By: Saul Min on 02-28-2024 Globulin (S) [Mass/Vol] 2.8 g/dL Normal F [facility] Comment on above: Performed By: #### T SH3, CMP, LIPID, CBC, PSAS #### [facility] [address] [place] [address] Serum or plasma albumin/glob ulin mass ratioOrdered By: Saul Min on 02-28-2024 Albumin/Globulin [Mass ratio] 1.4 {ratio} Normal [facility] Comment on above: Performed By: #### T SH3, CMP, LIPID, CBC, PSAS #### [facility] [address] [place] [address] Albumin/Globulin [Mass ratio] Serum or plasma albumin/globulin mass ratio [facility] Serum or plasma anion gap de terminationOrdered By: Saul Min on 02-28-2024 Anion gap [Moles/Vol] 8.6 mmol/L Normal 6.0-15.0 [facility] Comment on above: Performed By: #### T SH3, CMP, LIPID, CBC, PSAS #### [facility] [address] [place] [address] Anion gap [Moles/Vol] Serum or plasma an ion gap determination 6.0-15.0 [facility] Serum or plasma high density lipoprotein (HDL) cholesterol measurementOrdered By: Saul Min on 02-28-2024 Cholesterol in HDL [Mass/Vol] 36 mg/dL Normal 23-92 [facility] Comment on above: HDL CHOL ATP-III CLA SSIFICATION Cardiovascular RiskHDL > or equal to 60 mg/dL LOWHDL < 40 mg/dL HIGH Result Comment: HDL CHOL ATP-III CLASSIFICATION Cardiovascular Risk HDL > or equal to 60 mg/dL LOW HDL < 40 mg/dL HIGH Performed By: #### T SH3, CMP, LIPID, CBC, PSAS #### [facility] [address] Serum or plasma total choles terol/high density lipoprotein (HDL) cholesterol mass ratOrdered By: Saul Min on 02-28-2024 Cholesterol.total/Jailene sterol in HDL [Mass ratio] 5.2 {ratio} Normal <5.0 [facility] Comment on above: Performed By: #### T SH3, CMP, LIPID, CBC, PSAS #### [facility] [address] Cholesterol.total/Jailene sterol in HDL [Mass ratio] Serum or plasma total cholesterol/high density lipoprotein (HDL) cholesterol mass rat <5.0 [facility] Sodium [Moles/volume] in Ser um or PlasmaOrdered By: Saul Min on 02-28-2024 Sodium [Moles/Vol] 139 mmol/L Normal 136-145 [facility] Comment on above: Performed By: #### T SH3, CMP, LIPID, CBC, PSAS #### [address] Sodium [Moles/Vol] Sodium [Moles/volume ] in Serum or Plasma 136-145 [facility] Specific gravity Test strip (U) [Rel density]Ordered By: Saul Min on 02-28-2024 Specific gravity (U) [Rel density] 1.014 1.001-1.03 0 [facility] Specific gravity (U) [Rel density] Specific gravity of Urine by Test strip 1.001-1.03 0 [facility] Thyrotropin [Units/volume] i n Serum or PlasmaOrdered By: Saul Min on 02-28-2024 TSH Qn 2.04 m[IU]/L Normal 0.45-5.33 [facility] Comment on above: Result Comment: PERF ORMED BY: [facility] [address] [place] [address] PATHOLOGIST [employer] HODAN MEHTA M.D. Performed By: #### T SH3, CMP, LIPID, CBC, PSAS #### [facility] [address] TSH Qn Thyrotropin [Units/volume] in Serum or Plasma 0.45-5.33 [facility] Triglyceride [Mass/volume] i n Serum or PlasmaOrdered By: Saul Min on 02-28-2024 Triglyceride [Mass/Vol] 89 mg/dL 0-149 [facility] Comment on above: TRIG ATP III CLASSIF ICATIONTRIG less than 150 mg/dL NormalTRIG 150-199 mg/dL Borderline highTRIG 200-500 mg/dL High TRIG greater than 500 mg/dL Very highStandard traceable to the Center for Disease Conrtrol and Prevention (CDC) test method. Triglyceride [Mass/Vol] Triglyceride [Mass/volume] in Serum or Plasma 0-149 [facility] Comment on above: TRIG ATP III CLASSIF ICATIONTRIG less than 150 mg/dL NormalTRIG 150-199 mg/dL Borderline highTRIG 200-500 mg/dL High TRIG greater than 500 mg/dL Very highStandard traceable to the Center for Disease Conrtrol and Prevention (CDC) test method. Urea nitrogen [Mass/volume] in Serum or PlasmaOrdered By: Saul Min on 02-28-2024 Urea nitrogen [Mass/Vol] 18 mg/dL Normal 12-11 [facility] Comment on above: Performed By: #### T SH3, CMP, LIPID, CBC, PSAS #### [address] Urea nitrogen [Mass/Vol] Urea nitrogen [Mass/volume] in Serum or Plasma 7- [facility] Urine Cultureon 02-28-2024 Bacteria identified Cx Nom (U) No Growth 2 Days PERFORMED BY: [place] [address] PATHOLOGIST [employer] HODAN MEHTA M.D. Normal [facility] Comment on above: Performed By: #### C UU, ADDONUAPLUS #### [address] [place] [address] [place] Urine appearanceOrdered By: Saul Min on 02-28-2024 Appearance (U) Clear Normal Clear [facility] Comment on above: Order Comment: Name Collection Type:: Clean-Voided Midstream Performed By: #### C UU, ADDONUAPLUS #### [facility] [address] [place] [address] Urine cultureOrdered By: Archie Min on 02-28-2024 Bacteria identified Cx Nom (U) Urine culture [facility] Urobilinogen Test strip (U) [Mass/Vol]Ordered By: Saul Min on 02-28-2024 Urobilinogen (U) [Mass/Vol] Normal mg/dL Normal [facility] Urobilinogen (U) [Mass/Vol] Urobilinogen [Mass/volume] in Urine by Test strip Normal [facility] WBC Auto (Bld) [#/Vol]Ordere d By: Saul Min on 02-28-2024 WBC (Bld) [#/Vol] Leukocytes [#/volume ] in Blood by Automated count 4.1-10.5 [facility] pH Test strip (U)Ordered By: Saul Min on 02-28-2024 pH (U) pH of Urine by Test strip 5.0-9.0 [facility] pH of Urine by Test stripOrd ered By: Saul Min on 02-28-2024 pH (U) 6.0 [pH] Normal 5.0-9.0 [facility] Comment on above: Order Comment: Name Collection Type:: Clean-Voided Midstream Performed By: #### C UU, ADDONUAPLUS #### [facility] [address] [place] [address] MR KNEE LEFT WO IV CONTRASTo n 06-04-2023 MR KNEE LEFT WO IV CONTRAST EXAMINATION: MR KNEE LEFT WO IV CONTRAST HISTORY: r/o internal derangment TECHNIQUE: Routine non-contrast MRI of the knee, LEFT COMPARISON: None RESULT: MENISCI: Medial Meniscus: Essentially complete radial tear at the posterior root. Horizontal tearing versus degenerative signal involving the posterior horn and body. Portion of the meniscus protruding toward the medial gutter. Lateral Meniscus: Intact LIGAMENTS: ACL, PCL, MCL, and LCL complex intact. CARTILAGE: Small to moderate areas of full-thickness chondral loss involving the patella and trochlea. Small areas of mostly low-grade partial-thickness chondral loss involving the medial femoral condyle. Small osteophytes. TENDONS: Distal quadriceps intact. Mild patellar tendinosis, without tear. Popliteus appears intact. BONES AND MARROW: No evidence of fracture or bone marrow replacing process. Small bone island within the lateral femoral condyle. MUSCLES: Muscle bulk and signal intensity are normal. JOINT FLUID AND SYNOVIUM: Small joint effusion. No synovitis. No Rooney's cyst. OTHER: Mild diffuse subcutaneous edema. IMPRESSION: Medial meniscus tear(s). Osteoarthritis as discussed, worst in the patellofemoral compartment. ELECTRONICALLY SIGNED BY: Carroll Elise MD Normal Not Available D-DIMERon 05-29-2023 D-DIMER see note DecisionView Other D-DIMER 23.95 mg/L FEU Critically high <=0.59 mg/L FEU [employer] Other Alanine aminotransferase [En zymatic activity/volume] in Serum or PlasmaOrdered By: [employer] on 02-02-2023 ALT [Catalytic activity/Vol] 14 U/L 7-52 [facility] Albumin [Mass/volume] in Ser um or Plasma by Bromocresol green (BCG) dye binding methoOrdered By: [employer] on 02-02-2023 Albumin BCG dye [Mass/Vol] 4.0 g/dL 3.5-5.7 [facility] Alkaline phosphatase [Enzyma tic activity/volume] in Serum or PlasmaOrdered By: [employer] on 02-02-2023 ALP [Catalytic activity/Vol] 63 U/L 34-104 [facility] Aspartate aminotransferase [ Enzymatic activity/volume] in Serum or PlasmaOrdered By: [employer] on 02-02-2023 AST [Catalytic activity/Vol] 16 U/L 13-39 [facility] Bilirubin.total [Mass/volume ] in Serum or PlasmaOrdered By: [employer] on 02-02-2023 Bilirubin [Mass/Vol] 0.6 mg/dL 0.3-1.0 [facility] Calcium [Mass/volume] in Ser um or PlasmaOrdered By: [employer] on 02-02-2023 Calcium [Mass/Vol] 8.9 mg/dL 8.6-10.3 [facility] Carbon dioxide, total [Moles /volume] in Serum or PlasmaOrdered By: [employer] on 02-02-2023 CO2 [Moles/Vol] 31.9 mmol/L 21.0-31.0 [facility] Chloride [Moles/volume] in S lisbeth or PlasmaOrdered By: [employer] on 02-02-2023 Chloride [Moles/Vol] 104 mmol/L 98-107 [facility] Cholesterol [Mass/volume] in Serum or PlasmaOrdered By: [employer] on 02-02-2023 Cholesterol [Mass/Vol] 195 mg/dL 140-200 [facility] Comment on above: Chol less than 200 m g/dl low riskChol 201-239 mg/dl borderline riskChol 240 mg/dl and greater high risk Cholesterol in LDL Calc [Mas s/Vol]Ordered By: [employer] on 02-02-2023 Cholesterol in LDL [Mass/Vol] 131 mg/dL 0-100 [facility] Comment on above: LDL ATP III CLASSIFI CATIONLDL less than 100 mg/dL OptimalLDL 100-129 mg/dL Near or above optimalLDL 130-159 mg/dL Borderline highLDL 160-189 mg/dL HighLDL greater than 189 mg/dL Very high Cholesterol in VLDL Calc [Ma ss/Vol]Ordered By: [employer] on 02-02-2023 Cholesterol in VLDL [Mass/Vol] 21 mg/dL [facility] Creatinine [Mass/volume] in Serum or PlasmaOrdered By: [employer] on 02-02-2023 Creatinine [Mass/Vol] 1.17 mg/dL 0.70-1.30 [facility] Erythrocyte distribution wid th Auto (RBC) [Ratio]Ordered By: [employer] on 02-02-2023 Erythrocyte distribution width (RBC) [Ratio] 14.0 % 12.0-14.8 [facility] Glucose [Mass/volume] in Ser um or PlasmaOrdered By: [employer] on 02-02-2023 Glucose [Mass/Vol] 83 mg/dL 70-100 [facility] Comment on above: ADA recommended refe rence rangeRandom Glucose Reference Range is dependent on time and content of last meal. Glucose of more than 200 mg/dL in a nonstressed, ambulatory subject supports the diagnosis of Diabetes Mellitus. Hematocrit Auto (Bld) [Volum e fraction]Ordered By: [facility] on 02-02-2023 Hematocrit (Bld) [Volume fraction] 43.1 % 38.8-50.0 [facility] Hemoglobin [Mass/volume] in BloodOrdered By: [facility] on 02-02-2023 Hemoglobin (Bld) [Mass/Vol] 14.8 g/dL 13.0-17.0 [facility] Leukocytes [#/volume] correc sulma for nucleated erythrocytes in Blood by Automated counOrdered By: [facility] on 02-02-2023 WBC corrected for nucl RBC Auto (Bld) [#/Vol] 7.2 10*3/uL 4.1-10.5 [facility] MCH Auto (RBC) [Entitic mass ]Ordered By: [facility] on 02-02-2023 MCH (RBC) [Entitic mass] 31.0 pg 27.5-35.2 [facility] MCHC Auto (RBC) [Mass/Vol]Or dered By: [facility] on 02-02-2023 MCHC (RBC) [Mass/Vol] 34.4 g/dL 32.5-35.6 [facility] MCV Auto (RBC) [Entitic vol] Ordered By: [facility] on 02-02-2023 MCV (RBC) [Entitic vol] 90.1 fL 83.5-101 F [facility] No Panel InformationOrdered By: [facility] on 02-02-2023 Estimated GFR (CKD-EPI) > 60.0 mL/Min [facility] Creatinine Clearance (Chem N/A [facility] Platelet mean volume Auto (B ld) [Entitic vol]Ordered By: [facility] on 02-02-2023 Platelet mean volume (Bld) [Entitic vol] 7.5 fL 6.6-10.1 [facility] Platelets Auto (Bld) [#/Vol] Ordered By: [facility] on 02-02-2023 Platelets (Bld) [#/Vol] 178 10*3/uL 150-450 [facility] Potassium [Moles/volume] in Serum or PlasmaOrdered By: [facility] on 02-02-2023 Potassium [Moles/Vol] 4.0 mmol/L 3.5-5.1 [facility] Prostate specific Ag [Mass/v olume] in Serum or PlasmaOrdered By: [facility] on 02-02-2023 Prostate specific Ag [Mass/Vol] 1.110 ng/mL 0.000-4.00 0 [facility] Protein [Mass/volume] in Ser um or PlasmaOrdered By: [facility] on 02-02-2023 Protein [Mass/Vol] 7.0 g/dL 6.4-8.9 [facility] RBC Auto (Bld) [#/Vol]Ordere d By: [facility] on 02-02-2023 RBC (Bld) [#/Vol] 4.79 10*6/uL 3.90-5.60 [facility] Serum or plasma anion gap de terminationOrdered By: [facility] on 02-02-2023 Anion gap [Moles/Vol] 9.1 mmol/L 6.0-15.0 [facility] Serum or plasma high density lipoprotein (HDL) cholesterol measurementOrdered By: [facility] on 02-02-2023 Cholesterol in HDL [Mass/Vol] 43 mg/dL 23-92 [facility] Comment on above: HDL CHOL ATP-III CLA SSIFICATION Cardiovascular RiskHDL > or equal to 60 mg/dL LOWHDL < 40 mg/dL HIGH Serum or plasma total choles terol/high density lipoprotein (HDL) cholesterol mass ratOrdered By: [facility] on 02-02-2023 Cholesterol.total/Jailene sterol in HDL [Mass ratio] 4.5 {ratio} <5.0 [facility] Sodium [Moles/volume] in Ser um or PlasmaOrdered By: [facility] on 02-02-2023 Sodium [Moles/Vol] 141 mmol/L 136-145 [facility] Triglyceride [Mass/volume] i n Serum or PlasmaOrdered By: [facility] on 02-02-2023 Triglyceride [Mass/Vol] 105 mg/dL 0-149 F [facility] Comment on above: TRIG ATP III CLASSIF ICATIONTRIG less than 150 mg/dL NormalTRIG 150-199 mg/dL Borderline highTRIG 200-500 mg/dL High TRIG greater than 500 mg/dL Very highStandard traceable to the Center for Disease Conrtrol and Prevention (CDC) test method. Urea nitrogen [Mass/volume] in Serum or PlasmaOrdered By: [facility] on 02-02-2023 Urea nitrogen [Mass/Vol] 22 mg/dL 7 [facility] Covid-19 PCR (CVDTBH)on 05-20 SARS-CoV-2 (COVID-19) RNA GONZALES+probe Ql (Unsp spec) Detected Critically abnormal NOT DETECTED [facility] Comment on above: Result Comment: This test is not yet approved or cleared by the [place] FDA. When there are no FDA-approved or cleared tests available, and other criteria are met, FDA can make tests available under an emergency access mechanism called an Emergency Use Authorization (EUA). The EUA for this test is supported by the Hospital Receptionist of Health and Human Service's (HHS's) declaration that circumstances exist to justify the emergency use of in vitro diagnostics for the detection and/or diagnosis of the virus that causes COVID-19. This EUA will remain in effect (meaning this test can be used) for the duration of the COVID-19 declaration justifying emergency of IVDs, unless it is terminated or revoked by FDA (after which the test may no longer be used). Performed By: #### [facility] #### [facility] [address] [place] [address] Dr. Anyi Russell 11-13-2017 CNOV Office Visit (GMTAUS) DAMIAN LAE ([id number]) 1955 MDate Time Provider Department11/13/17 9:00 AM SOREN CURTIS [place] [place] During your visit today, we recorded the following information about you:DAVID Sparks 11/13/2017 11:59 AM AddendumSELECT [facility] For Personalized Genetic HealthcareConsultation NoteGenetic Counselor: Soren Curtis MS, CPatient: Jason SorianoKeithRN: [id number] Name and confirmed at initiation of visitHIGH LEVEL SUMMARY:? The patient's family history is significant for Matt Syndrome.? The patient has a 50% risk of having the familial MSH6 mutation.? The patient provided informed consent for Common Hereditary Cancers Panelthrough [facility]. I will contact the patient via telephone when results areavailable in 2-3 weeks.IDENTIFICATION AND CHIEF COMPLAINT:Dr. Saul Min requested a consultation for genetic counseling and riskassessment for Jason Lea, a 62 year old male, for discussion of his familyhistory of a known MSH6 gene mutation, 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 he presents to clinic today to further clarify his risks, anddetermine if he has also inherited this risk increasing mutation in the family.HISTORY OF PRESENT ILLNESS:Jason Lea is a 62 year old male with no personal history of cancer.As noted in the family history section, the patient has a family history ofLynch Syndrome.PAST MEDICAL HISTORYDiagnosis Date- Ruptured disc, cervical- Seasonal allergiesPAST SURGICAL HISTORYProcedure Laterality Date- NONECANCER SURVEILLANCE HISTORY:Colonoscopy: Yes / 9 years agoEGD: NoGI Polyps: NoProstate Cancer surveillance: Yes / 2017Dermatology: Yes / 2 years ago; dysplastic nevi 10 years agoSOCIAL HISTORY:Social HistorySubstance Use Topics- Smoking status: Never Smoker- Smokeless tobacco: Not on file- Alcohol use NoFAMILY HISTORY:We obtained a detailed, 4-generation family history. Significant diagnoses arelisted below:FAMILY HISTORYProblem Relation Age of Onset- Breast Cancer Mother 73- Cancer Mother 35 endometrial- Breast Cancer Sister 42- Cancer Brother 54 adrenal cortical- Genetic Brother Matt syndrome MSH6- Cancer Maternal Grandmother 83 pancreas- Colon Cancer Paternal Grandfather 50The patient's maternal ancestors are of unspecified descent andpaternal ancestors are of Sri Lankan, Cypriot, and Armenian descent. There is noAshkenazi Buddhism ancestry. There is no known consanguinity.A copy of the patient's pedigree will be available under the scanned documentstab following today's visit.GENETIC COUNSELING RISK ASSESSMENT, DISCUSSION, AND SUGGESTED FOLLOW UP:We reviewed the natural history and genetic etiology of Matt Syndrome.The patient has a 50% chance of having the same MSH6 mutation (c.1691C>A(p.Uha698*)) that was identified in his brotherWe discussed that identification of this family specific mutation will help hiscare providers tailor the patient's medical management. If the mutationindicating Matt Syndrome is detected in the patient, the [facility] recommendations would include increased cancersurveillance options. If a mutation is detected, the patient will be referredback to the referring provider and to any additional appropriate care providersto discuss the relevant options.We discussed that given the patient's family history of early onset breastcancer in his sister and cancers on both sides of his family, there is apossibility he could be at risk of having a hereditary cancer predispositionmutation other than the previously identified MSH6 mutation. For this reason,we discussed the option of panel testing.After considering the risks, benefits, and limitations, the patient providedinformed consent for the following testing: Common Hereditary Cancers Panelthrough [facility].This panel will analyze APC, DOLORES, AXIN2, BARD1, BMPR1A, BRCA1, BRCA2, BRIP1,CDH1, CDKN2A, CHEK2, CTNNA1, DICER1, EPCAM, GREM1, HOXB13, KIT, MEN1, MLH1,MSH2, MSH3, MSH6, MUTYH, NBN, NF1, NTHL1, PALB2, PDGFRA, PMS2, POLD1, POLE,PTEN, RAD50, RAD51C, RAD51D, SDHA, SDHB, SDHC, SDHD, SMAD4, SMARCA4, STK11,TP53, TSC1, TSC2, VHL.Per the patient's request, we will contact him by telephone to discuss theseresults. A follow up genetic counseling visit will be scheduled if requested.The patient was seen for a total of 40 minutes, greater than 50% of which wasspent [id number] counseling. This plan is being carried out per Dr. Valle's recommendations. This note will also be sent to the referring providervia the electronic medical record.Soren Curtis MS, [facility], Licensed Genetic CounselorEPIC CC:Dr. Apurva GuerreroCC BY US MAIL:Dr. Saul Min[address] [place] [phone] Provider: SAUL MIN [[id number]]Allergies As of Date: 11/13/2017 Noted Allergy ReactionCECLOR (CEFACLOR) 11/13/2011 5 - IntoleranceDate Reviewed: 01/03/2012Reviewed by: Sujatha MetzgerRn) JENNIE Haque - Fully AssessedPrimary Visit Diagnosis:Family history of Matt syndrome [Z80.0] Other Visit Diagnosis:Family history of malignant neoplasm of breast [Z80.3]Order(s):TUBES-DR [facility]ON EXTRA MOLECULAR [SQMXTUBE] Order #: [id number] FUTUREPrescriptions as of 11/13/2017 Sig: * FLONASE NASAL Use in the nose as needed. * GABAPENTIN 300 MG CAPSULE 300 mg three times daily.Problem List As Of Date 11/13/2017 Noted Resolved Cervical neuritis [M54.12] INVALID FOR* Cervical spondylosis without myelopathy [M47.81*INVALID FOR*Follow-up and Disposition History RecordedEncounter Number: [id number] Status:Closed by SOREN CURTIS on 11/13/17 Normal [facility] Molecular Teston 2017 Test COMMON HEREDITARY CANCERS PANEL Normal [facility] Comment on above: Performed By: #### M OL13 ####[facility], [place] [phone] Test Results View results in Scan fatou Documents link when available. Normal [facility] Comment on above: Performed By: #### M OL13 ####[facility] [address] [place], [place] [phone] PROGRESSon 11-13-2017 Protein HNO ID: [id number]: Soren MetzgerOklahoma Heart Hospital – Oklahoma CityDena Whiteervice: (none)Author Type: Genetic CounselorType: Progress NotesFiled: 11/27/2017 9:08 AMNote Text:[facility] MED[facility]INE [facility]STITUTECenter For Personalized Genetic HealthcareConsultation NoteGenetic Counselor: Soren Curtis, MS, LGCPatient: Jason SorianoeMRN: [id number] Name and confirmed at initiation of visitHIGH LEVEL SUMMARY:? The patient's family history is significant for Matt Syndrome.? The patient has a 50% risk of having the familial MSH6 mutation.? The patient provided informed consent for Common Hereditary CancersPanel through [facility]. I will contact the patient via telephone whenresults are available in 2-3 weeks.IDENTIFICATION AND CHIEF COMPLAINT:Dr. Saul Min requested a consultation for genetic counseling andrisk assessment for Jason Lea, a 62 year old male, for discussion ofhis family history of a known MSH6 gene mutation, confirming LynchSyndrome in this family. he presents to clinic today to further clarifyhis risks, and determine if he has also inherited this risk increasingmutation in the family.HISTORY OF PRESENT ILLNESS:Jason Lae is a 62 year old male with no personal history of cancer.As noted in the family history section, the patient has a family historyof Matt Syndrome.PAST MEDICAL HISTORYDiagnosis Date- Ruptured disc, cervical- Seasonal allergiesPAST SURGICAL HISTORYProcedure Laterality Date- NONECANCER SURVEILLANCE HISTORY:Colonoscopy: Yes / 9 years agoEGD: NoGI Polyps: NoProstate Cancer surveillance: Yes / 2017Dermatology: Yes / 2 years ago; dysplastic nevi 10 years agoSOCIAL HISTORY:Social HistorySubstance Use Topics- Smoking status: Never Smoker- Smokeless tobacco: Not on file- Alcohol use NoFAMILY HISTORY:We obtained a detailed, 4-generation family history. Significantdiagnoses are listed below:FAMILY HISTORYProblem Relation Age of Onset- Breast Cancer Mother 73- Cancer Mother 35 endometrial- Breast Cancer Sister 42- Cancer Brother 54 adrenal cortical- Genetic Brother Matt syndrome MSH6- Cancer Maternal Grandmother 83 pancreas- Colon Cancer Paternal Grandfather 50The patient's maternal ancestors are of unspecified descent andpaternal ancestors are of Sri Lankan, Cypriot, and Armenian descent. There is noAshkenazi Buddhism ancestry. There is no known consanguinity.A copy of the patient's pedigree will be available under the scanneddocuments tab following today's visit.GENETIC COUNSELING RISK ASSESSMENT, DISCUSSION, AND SUGGESTED FOLLOW UP:We reviewed the natural history and genetic etiology of Matt Syndrome.The patient has a 50% chance of having the same MSH6 mutation (c.[id number]>A(p.[id number]*)) that was identified in his brotherWe discussed that identification of this family specific mutation willhelp his care providers tailor the patient's medical management. If themutation indicating Matt Syndrome is detected in the patient, the[facility] recommendations would includeincreased cancer surveillance options. If a mutation is detected, thepatient will be referred back to the referring provider and to anyadditional appropriate care providers to discuss the relevant options.We discussed that given the patient's family history of early onset breastcancer in his sister and cancers on both sides of his family, there is apossibility he could be at risk of having a hereditary cancerpredisposition mutation other than the previously identified [id number]. For this reason, we discussed the option of panel testing.After considering the risks, benefits, and limitations, the patientprovided informed consent for the following testing: Common HereditaryCancers Panel through [employer] [employer].This panel will analyze APC, DOLORES, AXIN2, BARD1, BMPR1A, BRCA1, BRCA2,BRIP1, CDH1, CDKN2A, CHEK2, CTNNA1, DICER1, EPCAM, GREM1, HOXB13, KIT,MEN1, MLH1, MSH2, MSH3, MSH6, MUTYH, NBN, NF1, NTHL1, PALB2, PDGFRA, PMS2,POLD1, POLE, PTEN, RAD50, RAD51C, RAD51D, SDHA, SDHB, SDHC, SDHD, SMAD4,SMARCA4, STK11, TP53, TSC1, TSC2, VHL.Per the patient's request, we will contact him by telephone to discussthese results. A follow up genetic counseling visit will be scheduled ifrequested.The patient was seen for a total of 40 minutes, greater than 50% of whichwas spent [id number] counseling. This plan is being carried out per Dr.Charis Rodriges's recommendations. This note will also be sent to thereferring provider via the electronic medical record.Soren Curtis MS, [facility], Licensed Genetic CounselorEPIC CC:Dr. Apurva Guerrero BY US MAIL:Dr. Saul Min[address] [place] [phone] [facility] General HospitalLIGIASamaritan North Health Centerdarlyn CAULIFLOWER, IGE <0.35 Normal <0.35 [facility] CLASS CLASS 0 Normal [facility] Comment on above: Result Comment: Anal ytical and performance characteristics have beenestablished by [facility]. It has notbeen cleared or approved by the FDA. The FDA hasdetermined that such clearance or approval is notnecessary. This test is used for clinical purposes.It should not be regarded as investigational or research. INTERP FOR [facility] ALLERGEN TEST ING:on 05-22-2017 INTERP FOR [facility] ALLERGEN TESTI Normal [facility] Comment on above: Result Comment: CLAS S RANGE(ku/L) INTERPRETATION 0 <0.10 Normal, no specific IgE identified 0/1 0.10-0.34 Equivocal, indeterminate significance 1 0.35-0.69 Low level specific IgE 2 0.70-3.49 Moderate level specific IgE 3 3.50-17.49 High level specific IgE 4 17.50-49.99 Very high levels 5 50.00-99.99 of specific IgE 6 >=100.00 antibodies Note: Test results reflect expanded analytic measurable range. Allergen specific IgE values of 0.10-0.34 kU/L (class 0/1) are of indeterminate significance and may require specific clinical expertise for interpretation. Other than peanut and peanut components, values in this range will not be reported with out of range flagging. Testing performed on [employer] 1000 using ImmunoCAP Specific IgE reagents. * If Antibodies are followed by an asterisk (*) they have been developed and their performance characteristics determined by [facility] ([facility]). They have not been cleared or approved by the U.S. Food and Drug Administration (FDA). The FDA has determined that such clearance or approval is not necessary. These assays are intended to be used for clinical purposes. Analyte specific reagents were used. They should not be regarded as investigational or for research. [facility] is regulated under the Clinical Laboratory Improvement Amendments of 1988 (CLIA) as qualified to perform high complexity clinical testing.[facility] [address] [place], [place] [address]Laboratory Director: Tomas Green M.D.CLIA No. [id number] CAP Accreditation No. [id number] ALMOND IgEon 05-22-2017 ALMOND IgE <0.10 Normal <0.35 [facility] APPLE IgEon 05-22-2017 CLASS 0 Normal [facility] Comment on above: Result Comment: Test performed at [facility] [address] [place] [address], [place] [address] CLIA Number [id number] [facility] Accreditation Number [id number] APPLE IgE <0.10 Normal <0.35 [facility] BRAZIL NUT IgEon 05-22-2017 BRAZIL NUT IgE <0.10 Normal <0.35 [facility] BROCCOLI IgEon 05-22-2017 BROCCOLI IgE <0.10 Normal <0.35 [facility] CABBAGE, IgEon 05-22-2017 CABBAGE IgE <0.10 Normal <0.35 [facility] CARROT IgEon 05-22-2017 CARROT IgE <0.10 Normal <0.35 [facility] CASHEW NUT IgEon 05-22-2017 CASHEW NUT IgE <0.10 Normal <0.35 [facility] COCONUT IgEon 05-22-2017 COCONUT IgE <0.10 Normal <0.35 [facility] GRAPE IgEon 05-22-2017 GRAPE IgE <0.10 Normal <0.35 [facility] GRAPEFRUIT IgEon 05-22-2017 GRAPEFRUIT IgE <0.10 Normal <0.35 [facility] JAROD NUT/FILBERT IgEon JAROD NUT/FILBERT IgE <0.10 Normal <0.35 [facility] IMMUNOGLOBULIN Tr 8 Globulin 20 KU/L Normal <=219 [facility] Comment on above: Result Comment: Test performed at [facility] [address] [place] [address], [place] [address] CLIA Number [id number] CAP Accreditation Number [id number] IMMUNOGLOBULINSon 05-22-2017 IgA 324 mg/dL Normal 70-400 [facility] IgG 1518 mg/dL Normal 700-1600 [facility] Comment on above: Result Comment: Test performed at [facility] [address] [place] [address] CLIA Number [id number] CAP Accreditation Number [id number] IgM 176 mg/dL Normal 40-230 [facility] LATEX IgEon 05-22-2017 LATEX IgE <0.10 Normal <0.35 [facility] LETTUCE IgEon 05-22-2017 LETTUCE IgE <0.10 Normal <0.35 [facility] ORANGE IgEon 05-22-2017 ORANGE IgE <0.10 Normal <0.35 [facility] PEANUT IgEon 05-22-2017 CLASS 0/1 Normal [facility] Comment on above: Result Comment: Test performed at [facility] [address] [place] [address], [place] [address] CLIA Number [id number] CAP Accreditation Number [id number] PEANUT IgE 0.11 KU/L High <0.10 [facility] PECAN NUT IgEon 05-22-2017 CLASS 0 Normal [facility] Comment on above: Result Comment: Test performed at [facility] [address] [place] [address] CLIA Number [id number] CAP Accreditation Number [id number] PECAN NUT IgE <0.10 Normal <0.35 [facility] PISTACHIO NUT IgEon 05-22-19 18 PISTACHIO NUT IgE <0.10 Normal <0.35 [facility] STRAWBERRY IgEon 05-22-2017 STRAWBERRY IgE <0.10 Normal <0.35 [facility] WALNUT IgEon 05-22-2017 WALNUT IgE <0.10 Normal <0.35 [facility] ANTI NUCLEAR ANTIBODIESon ANTI NUCLEAR ANTIBODIES Negative Normal NEGA TIVE AT 1:80 [facility] Comment on above: Result Comment: TEST ED BY IFA ON HEP-2 CELLS. TRYPTASEon 05-21-2017 TRYPTASE 8 ug/L Normal <11 [facility] ALT-SGPTon 05-18-2017 Alanine aminotransferase (ALT) 23 U/L Normal 5-59 [facility] C REACTIVE PROTEIN (INFLAMMA TORY)on 05-18-2017 C reactive protein (CRP) 14.00 mg/L Normal <20.0 [facility] CBC W/AUTO DIFFon 05-18-2017 % NEUTROPHILS 56.4 % Normal [facility] ABS BASOPHILS 0.1 K/ul Normal 0.0-0.1 [facility] Basophils/100 WBC Auto (Bld) 1.3 % Normal [facility] Comment on above: Result Comment: MINOR GOLDEN DIFFERENTIAL PERFORMED Eosinophils 0.3 10*3/uL Normal 0.1-0.4 [facility] Eosinophils/100 leukocytes 5.3 % Normal [facility] Erythrocyte distribution width Auto Ratio (RBC) 12.9 % Normal 10.8-14.8 [facility] Erythrocytes (RBC) 5.45 10*6/uL Normal 4.00-5.50 Path [facility] Hematocrit (HCT) 47.5 % Normal 41.4-51.0 [facility] Hemoglobin mass conc (Bld) 16.2 g/dL Normal 13.8-17.0 [facility] Lymphocytes 1.5 10*3/uL Normal 0.8-5.2 [facility] Lymphocytes/100 leukocytes 27.3 % Normal [facility] MCH 29.7 pg Normal 27.0-34.0 [facility] MCHC mass conc (RBC) 34.1 g/dL Normal 31.0-36.0 [facility] MCV 87.2 fL Normal 80.-100. [facility] Monocytes 0.5 10*3/uL Normal 0.1-0.9 [facility] Monocytes/100 leukocytes 8.2 % Normal [facility] Neutrophils 3.1 10*3/uL Normal 1.3-9.1 [facility] Platelets 187 10*3/uL Normal 150.-450. [facility] WBC (Leukocytes) 5.5 10*3/uL Normal 3.7-10.8 [facility] CREATININE WITH GFRon 2016 Creatinine 1.2 mg/dL Normal 0.5-1.3 [facility] eGFR (black) 75 mL/min/{1.73_m2} Normal >60 [facility] eGFR (non-black) 62 mL/min/{1.73_m2} Normal >60 [facility] Comment on above: Result Comment: * ES TIMATED GFR (eGFR) IS CALCULATED FROM SERUM CREATININE AND OTHER VARIABLES AFFECTING ITS VALUE (AGE, RACE, AND SEX). * FOR PATIENT WITH ESTABLISHED CHRONIC KIDNEY DISEASE, THE CHART BELOW DEFINES STAGES WITH eGFR VALUES. Stage 1 90 mL/min/1.73 m2 or greater Stage 2 60-89 mL/min/1.73 m2 Stage 3 30-59 mL/min/1.73 m2 Stage 4 15-29 mL/min/1.73 m2 Stage 5 14 mL/min/1.73 m2 or less RHEUMATOID FACTORon 05-18-20 17 RHEUMATOID FACTOR <10 Normal <14 [facility] SED RATEon 05-18-2017 SED RATE 12 mm/hr Normal 0-20 [facility] TSHon 05-18-2017 Thyroid stimulating hormone (TSH) 1.980 uIU/mL Normal 0.40-4.40 [facility] Vital Signs Date Time Vital Sign Value Performing Clinician Facility 03-27-2024 12:33-0500 Body height 180.34 cm Saul Min DO Work Phone: [facility] 03-27-2024 12:33-0500 Body mass index (BMI) [Ratio] 38.2 kg/m2 Saul Min DO Work Phone: [facility] 03-27-2024 12:33-0500 Body temperature 97.7 [degF] Saul Min DO Work Phone: [facility] 03-27-2024 12:33-0500 Body weight 124.28 kg Saul Min DO Work Phone: [facility] 03-27-2024 12:33-0500 Diastolic blood pressure 77 mm[Hg] Saul Mechelle DO Work Phone: [facility] 03-27-2024 12:33-0500 Heart rate 61 /min Saul Min DO Work Phone: [facility] 03-27-2024 12:33-0500 Respiratory rate 16 /min Saul Mechelle DO Work Phone: [facility] 03-27-2024 12:33-0500 SaO2% (BldA) [Mass fraction] 99 % Saul Mechelle DO Work Phone: [facility] 03-27-2024 12:33-0500 Systolic blood pressure 126 mm[Hg] Saul Mahmoodadela DO Work Phone: [facility] 03-03-2024 08:17-0400 Body mass index (BMI) [Ratio] 36.6 kg/m2 DO Saul Min Work Phone: [facility] 03-03-2024 08:17-0400 Body temperature 97.5 [degF] DO Saul Min Work Phone: [facility] 03-03-2024 08:17-0400 Diastolic blood pressure 84 mm[Hg] DO Saul Mechelle Work Phone: [facility] 03-03-2024 08:17-0400 Heart rate 80 /min DO Saul Mahmoodadela Work Phone: [facility] 03-03-2024 08:17-0400 Respiratory rate 18 /min DO Saul Mahmoodadela Work Phone: [facility] 03-03-2024 08:17-0400 SaO2% (BldA) [Mass fraction] 98 % DO Saul Mahmoodadela Work Phone: [facility] 03-03-2024 08:17-0400 Systolic blood pressure 132 mm[Hg] DO Saul Min Work Phone: [facility] 03-03-2024 08:05-0400 Body height 182.88 cm DO Saul Min Work Phone: [facility] 03-03-2024 08:05-0400 Body weight 122.46 kg DO Saul Min Work Phone: [facility] 02-27-2023 08:50-0400 Body height 182.88 cm Saul Min Other [facility] Other 02-27-2023 08:50-0400 Body mass index (BMI) [Ratio] 36.48 kg/m2 Saul Min Other [facility] Other 02-27-2023 08:50-0400 Body temperature 97.5 [degF] Saul Min Other [facility] Other 02-27-2023 08:50-0400 Body weight 122.02 kg Saul Min Other [facility] Other 02-27-2023 08:50-0400 Diastolic blood pressure 86 mm[Hg] Saul Min Other [facility] Other 02-27-2023 08:50-0400 Respiratory rate 18 /min Saul Min Other [facility] Other 02-27-2023 08:50-0400 SaO2% (BldA) [Mass fraction] 99 % Saul Min Other [facility] Other 02-27-2023 08:50-0400 Systolic blood pressure 134 mm[Hg] Saul Min Other [facility] Other Encounters Encounter Date Encounter Type Care Provider Facility Start: 03-27-2024 End: 03-27-2024 ambulatory Saul Min DO Work Phone: [facility] Work Phone: Start: 03-27-2024 End: 03-27-2024 Patient encounter procedure Saul Min DO Work Phone: [facility] Work Phone: Start: 03-03-2024 Patient encounter status Saul Min DO Work Phone: [facility] Start: 03-03-2024 End: 03-03-2024 ambulatory DO Saul Min Work Phone: [facility] Work Phone: Start: 03-03-2024 End: 03-03-2024 Encounter for general adult medical examination without abnormal findings Saul Min DO Work Phone: [facility] Start: 03-03-2024 End: 03-03-2024 Patient encounter procedure DO Saul Min Work Phone: [facility] Work Phone: Start: 02-28-2024 End: 02-28-2024 Patient encounter procedure DO Saul Min Work Phone: [facility] Start: 02-28-2024 End: 02-28-2024 ambulatory DO Saul Min Work Phone: [facility] Work Phone: Start: 02-28-2024 Encounter for genera l adult medical examination without abnormal findings Saul Min [facility] Start: 06-06-2023 End: 06-06-2023 ambulatory Saul Min Other [facility] Other Start: 06-06-2023 Telephone encounter Saul Min [facility] [place] Start: 06-05-2023 End: 06-05-2023 ambulatory Saul Min Other [facility] Other Start: 06-05-2023 Telephone encounter Saul Min [facility] [place] Start: 06-04-2023 End: 06-05-2023 ambulatory SAUL MIN Not Available Start: 05-29-2023 End: 05-29-2023 ambulatory Saul Min Other [facility] Other Start: 05-29-2023 Telephone encounter Saul Min [facility] [place] Start: 04-23-2023 End: 04-23-2023 ambulatory Saul Min Other [facility] Other Start: 04-23-2023 Telephone encounter Saul Min [facility] [place] Start: 02-27-2023 End: 02-27-2023 ambulatory Saul Min Other [facility] Other Start: 02-27-2023 Encounter by compute r link Saul Min [facility] [place] Start: 02-27-2023 Office outpatient vi sit 15 minutes Saul Min [facility] [place] Start: 02-02-2023 End: 02-02-2023 ambulatory DO Saul Min Work Phone: [facility] Work Phone: Start: 02-02-2023 End: 02-02-2023 Departed Referred DO Saul Min Work Phone: [facility] Work Phone: Start: 06-01-2021 End: 06-01-[address] SAUL MIN Facility: Start: 11-13-2017 End: 11-13-2017 [facility] Procedures Date Procedure Procedure Detail Performing Clinician Start: 02-28-2024 Bacteria identified in Urine by Culture DO Saul Min Work Phone: Start: 02-28-2024 Urine culture Saul chapman DO Work Phone: Plan of Treatment Date Care Activity Detail Author Start: 03-03-2024 Patient referral [facility] Work Phone: Start: 02-28-2024 Bacteria identified in Urine by Culture Urine Culture [facility] Comprehensive metabo lic 2000 panel - Serum or Plasma [facility] Patient referral [facility] Work Phone: Urine culture [facility] Urine culture [facility] XR Cervical spine Vi ews W flexion and W extension [facility] XR Foot - right GE 3 Views F [facility] Immunizations Immunization Date Immunization Notes Care Provider Fa cility 06-03-2019 Influenza, injectabl e, Madin Remedios Canine Kidney, preservative free, quadrivalent DO Saul Min Work Phone: [facility] 06-03-2019 influenza, seasonal, injectable Saul Min Other [facility] 04-14-2018 Influenza, injectabl e, Madin Everson Canine Kidney, preservative free, quadrivalent DO Saul Min Work Phone: [facility] Payers Date Payer Category Payer Self-pay [id number] 1957 Unknown [id number] 1955 Unknown [id number] 1955 Unknown [id number] Private Health Insurance [facility] [id number] Unknown [id number] Social History Date Type Detail Facility Tobacco smoking status NHIS Unknown if ever smoked [facility] Work Phone: Start: 1955 Sex Assigned At Male F [facility] Sex Assigned At Sex Assigned At Bir th [facility] Other Start: 09-21-2023 End: 03-03-2024 Tobacco smoking status NHIS Never smoked tobacco (finding) [facility] Start: 03-27-2024 Sex Male (finding) [facility] Evaluation note 03-03-2024 Note Date & Type Note Facility 03-03-2024 Evaluation note Authored March 03, 2024 8 :18am The above note written by __ _Kathe Lloyd____ acting as human recorder, note dictated by Dr. Cruz .I performed the above HPI, ROS, and Examination. I formulated and dictated the treatment plan and was present for entire encounter. Saul Min D.O. [facility] Work Phone: Evaluation note 06-06-2023 Note Date & Type Note Facility 06-06-2023 Evaluation note Encounter Date Diagnosis Assessment Notes May, Menieres disease (ICD-10 - H81.09) [facility] Other Evaluation note 05-29-2023 Note Date & Type Note Facility 05-29-2023 Evaluation note Encounter Date Diagnosis Assessment Notes May, Calf pain (ICD-10 - M79.669) May, Knee pain, left (ICD-10 - M25.562) [facility] Other Evaluation note 02-27-2023 Note Date & Type Note Facility 02-27-2023 Evaluation note Encounter Date Diagnosis Assessment Notes Feb, Hyperlipidemia (ICD-10 - E78.5) Discussed cholesterol results with patient today. Total is 195. HDL is 43. LDL is 131. Triglycerides are 105. VLDL is 21. He is told that we would like to see his VLDL in the teen range but his has come down from 24 to 21. His lifestyle and dietary changes have helped to improve his cholesterol readings. He is to continue with what he is doing as it is working well. Feb, Cervical pain (ICD-10 - M54.2) He does continue to use and benefit from the above medication. 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 He was advised to soak his hands in warm water if needed. He feels that he has arthritis, there is not a lot that can be done for arthritis. Heat will help this issue. He feels it is age related and not related to rheumatoid arthritis. Feb, Weight gain (ICD-10 - R63.5) He is eating less at this time to help keep his weight off. He can feel he is losing muscle tone so he is going to work on this when he works out. I did recommend that he do resistence training. He should increase his intake of protein. He should make 50% of his exercise resistance training. He has gained four pounds since last seen here. He had cut back on red meat and can instead eat lean meats. He has cut back on portion sizes and can continue with this. Cut back on intake of carbs and sugars. Eat more of a keto type diet. I did recommend he work on balance training as well. Feb, Encounter for prostate cancer screening (ICD-10 - Z12.5) His PSA is 1.110. No sign of prostate cancer at this time. Feb, Other His CO2 level is 31.9 which is elevated on the lab draw, but I suspect that this is a lab error. He does not wake up gasping for air and only snores occasionally or if he has rolled onto his back and is laying flat. He feels rested once he is up for the day. He is going to see a oracle analyst for evaluation of lesions on his face. I did advise him that these are seborrheic keratosis. These are becoming bothersome for him, and they itch but do not bleed. I did recommend he get a pneumonia, flu and Shingrix vaccine. Also recommended he research the RSV vaccine. [facility] Other History general Narrative - Reported 10-12-2011 Note Date & Type Note Facility 10-12-2011 History general N arrative - Reported Type Medical History 2009 colonoscopy/ normal/ Dr. Miki whelan Medical History stress test 2006? Medical History MRI of the Cervical Spine without Contrast 10-12-11; [facility] Medical History Cervical Spine X-Ray 10-12-11; [facility] Medical History HX Lumbar pain Medical History HX Cervical pain Medical History HX palpitations Medical History Hx of right Achilles tendon tear Medical History Psoriasis Medical History Colonoscopy 08/27/18 Dr. Grajeda Surgical History Colonoscopy, repeat in 2028, Dr Jaziel Grajeda 08-27-2018 [facility] Other Evaluation note Note Date & Type Note Facility Evaluation note No assessment information availa ble [facility] Work Phone: Evaluation note Note Date & Type Note Facility Evaluation note No Information [facility] Other Evaluation note Note Date & Type Note Facility Evaluation note Diagnosis Onset Date Cervical pain acute Elevated PSA acute Foot pain, right acute Hyperlipidemia acute Knee pain, left acute Numbness and tingling of bot h upper extremities acute Other abnormal blood chemistry acute Pain of right heel acute Weight gain acute [facility] Work Phone: Reason for visit Narrative Note Date & Type Note Facility Reason for visit Narrative wellness/revi ew [facility] Other Summary Purpose Family History No Family History Records Found Relationship Condition Age at Onset Recorded Date/T valdemar father Unknown grandparent Diabetes mellitus Unknown Parkinson's disease Unknown grandparent Malignant neoplasm Unknown grandparent Unknown Malignant neoplasm Unknown mother Unknown Advance Directives No Advanced Directives Records Found Advance Directive Response Recorded Date/ Time Advance Directives No June 01, 2021 1:42pm Advance Directive Response Recorded Date/ Time Advance Directives No June 01, 2021 12:42pm Chief Complaint and Reason for Visit Chief Complaint cbc psa Chief Complaint Z79.899 Z12.5 R63.5 E78.5 R35.1 Chief Complaint Z79.899 Z12.5 R63.5 E78.5 R35.1 yearly/review labs Reason for Visit Cervical pain Elevated PSA Foot pain, right Hyperlipidemia Knee pain, left Numbness and tingling of both upper extremities Other abnormal blood chemistry Pain of right heel Weight gain Chief Complaint Admit Date Z79.899 Z12.5 R63.5 E78.5 R35.1 February 28, 2024 8:05am yearly/review labs March 03, 2024 8 :07am Cough, congestion March 27, 2024 1 2:11pm Reason for Visit Admit Date Cervical pain March 03, 2024 8 :07am Elevated PSA March 03, 2024 8 :07am Foot pain, right March 03, 2024 8 :07am Hyperlipidemia March 03, 2024 8 :07am Knee pain, left March 03, 2024 8 :07am Numbness and tingling of both upper extr emities March 03, 2024 8:07am Other abnormal blood chemistry February 172023 8:07am Pain of right heel March 03, 2024 8 :07am Weight gain March 03, 2024 8 :07am Wellness examination March 03, 2024 8:07am Allergic rhinitis March 27, 2024 1 2:11pm Reason for Referral Reason appt please conta ct pt to scheduled appt discuss treatment for medial meniscus tear lt knee Diagnosis 1 Tear of medial menis cus of left knee (S83.242A) Referral Organization [facility] Radha Contreras Referring Provider First Name Saul Referring Provider Last Name Mechelle Referring Provider Specialty Family Prac ozzy Referred Organization Unknown Facility Referred Provider Maurilio Coley Referred Provider Specialty Orthopaedic Surgery Referral Priority Routine General Notes Taylor Joshi 06/17/2023 04:49:41 PM > referral faxed thru [facility] with visit note, TE message, MRI report and insurance card to Dr Coley at [phone] for the [place] office. pt understands he will be contacted to schedule this appt. Additional Source Comments (unrecognized sect ion and content) No Status Records FoundNo Status Records FoundNo Status Records FoundNo Status Records FoundNo Status Records Found INFORMATION SOURCE (unrecogn ized section and content) DATE CREATED AUTHOR 11/12/2017 [facility] DATE CREATED AUTHOR AUTHOR'S ORGANIZ ATION 11/27/2017 [facility] DATE CREATED AUTHOR AUTHOR'S ORGANIZ ATION 06/05/2021 [facility] DATE CREATED AUTHOR AUTHOR'S ORGANIZ ATION 06/09/2023 [facility] DATE CREATED AUTHOR AUTHOR'S ORGANIZ ATION 11/13/2024 [facility] Care Teams (unrecognized sec tion and content) Team Status: Active Member Role Status Dates Saul Min DO Primary Care Provider Active Team Status: Inactive Member Role Status Dates Saul Min DO Primary Care Provider Active [facility] Attending Provider Active Team Status: Inactive Member Role Status Dates Saul Min DO Primary Care Provide r, Attending Provider Active Start: February 28, 2024 End: February 28, 2024 Team Status: Inactive Member Role Status Dates Saul Min DO Primary Care Provide r, Attending Provider Active Start: March 03, 2024 End: March 03, 2024 Team Status: Inactive Member Role Status Dates Saul Min DO Primary Care Provider Active S tart: March 27, 2024 End: March 27, 2024 Mary Coronado APRN Attending Provider Active S tart: March 27, 2024 End: March 27, 2024 Goals (unrecognized section and content) Goals may be documented in a n alternate sectionNo InformationNo InformationNo InformationNo InformationNo InformationNo InformationNo InformationGoals may be documented in an alternate sectionGoals may be documented in an alternate sectionGoals may be documented in an alternate section REASON FOR VISIT (unrecogniz ed section and content) Update [employer] Ksznvzjvffrd12/ 11 apptcritical resultlt knee painClinical Acute IllnessClinical FOR RECORDS PERTAINING TO PATIENTS WHO ARE OR HAVE BEEN ENROLLED IN A CHEMICAL DEPENDENCY/SUBSTANCEABUSE PROGRAM, SOME INFORMATION MAY BE OMITTED. This clinical summary was aggregated from multiple sources. Caution should be exercised in using it in the provision of clinical care. This summary normalizes information from multiple sources, and as a consequence, information in this document may materially change the coding, format and clinical context of patient data. In addition, data may be omitted in some cases. CLINICAL DECISIONS SHOULD BE BASED ON THE PRIMARY CLINICAL RECORDS. [employer] provides no warranty or guarantee of the accuracy or completeness of information in this document.
--- OUTSIDE RECORDS SUMMARY | 2025-03-01 11:49 | XMS_ITS | Encounter Summary ---
Author Organization [facility] Address [address] [place] [id number] Care Team Providers Care Domestic Helper Name Role Phone TimoteoPipo chapman Olga DO Primary Care Provider [phone] Source Comments In the event this information is protected by the Federal Confidentiality of Alcohol and Drug AbusePatient Records regulations: The Federal rules restrict any use of the information to criminally investigate or prosecute any alcohol or drug abuse patient.[facility] Encounter Details Date Type Department Care Team (Late st Contact Info) Description 2022 [place] [address] Provider, [facility] Medicare Coverage of Physical Exams Social History Tobacco Use Types Packs/Day Years Used Date Smoking Tobacco: Never Alcohol Use Standard Drinks/Week Comments No 0 (1 standard drink = 0.6 oz pur e alcohol) Area Deprivation Index Answer Date Paul rded National Score (1-100), lower number is lower ri sk Not on file 04/27/2020 State Score (1-10), lower number is lower risk N ot on file 04/27/2020 Data from: https://www.neighborhoodatlas.medicine.[facility].edu/. Last address used for calculation Not on file 04/27/2020 Sex and Gender Information Value Date Recorded Sex Assigned at Male 08/18/2018 7:04 PM EDT Legal Sex Male 10:16 AM EST Gender Identity Not on file Sexual Orientation Not on file Occupation Industry Job Start Date Job End Date [employer] Not on file Not on file Not on file documented as of this encounter Plan of Treatment Not on file documented as of this encounter Visit Diagnoses Not on filedocumented in this encounter Care Teams Domestic Helper Relationship Specialty Start Date End Date Pipo Irizarry, [address] [place] [address] PCP - General Family Medicine 11/05/11 documented as of this encounter
--- OUTSIDE RECORDS SUMMARY | 2025-03-01 11:49 | XMS_ITS | Clinical Summary ---
Author Organization [facility] Address [address] [place], [place] [id number] Care Team Providers Care Gear Tooth Grinding Machine Operator Name Role Phone Timoteoadela Pipo Espinoza DO Primary Care Provider [phone] Allergies Active Allergy Reactions Criticality Noted Date Comments Cefaclor Intolerance 11/13/2011 Medications GABAPENTIN 300 mg capsuleIndicatio ns:Cervicalgia 300 mg three times daily. 11/02/2011 Active FLUTICASONE PROPIONATE (FLONASE NASAL) Use in the nose as needed. Active Active Problems Problem Noted Date Diagnosed Date Cervical neuritis 01/03/2012 Cervical spondylosis without myelopathy 01/03/20 12 Family History Medical History Relation Comments Cancer Brother adrenal cortical Genetic Brother Matt syndrome M SH6 Cancer Maternal Grandmother pancreas Breast Cancer Mother Cancer Mother endometrial Colon Cancer Paternal Grandfather Breast Cancer Sister Relation Status Comments Brother Alive Father Alive Maternal Grandfather Maternal Grandmother Mother Paternal Grandfather Paternal Grandmother Sister Alive Social History Tobacco Use Types Packs/Day Years Used Date Smoking Tobacco: Never Alcohol Use Standard Drinks/Week Comments No 0 (1 standard drink = 0.6 oz pur e alcohol) Area Deprivation Index Answer Date Paul rded National Score (1-100), lower number is lower ri sk Not on file 04/27/2020 State Score (1-10), lower number is lower risk N ot on file 04/27/2020 Data from: https://www.neighborhoodatlas.medicine.[facility].edu/. Last address used for calculation Not on file 04/27/2020 Sex and Gender Information Value Date Recorded Sex Assigned at Male 08/18/2018 7:04 PM EDT Legal Sex Male 10:16 AM EST Gender Identity Not on file Sexual Orientation Not on file Occupation Industry Job Start Date Job End Date [employer] Not on file Not on file Not on file Last Filed Vital Signs Vital Sign Reading Time Taken Comments Blood Pressure 123/76 01/03/2012 8:07 AM EDT Pulse 61 01/03/2012 8:07 AM EDT Temperature - - Respiratory Rate 18 01/03/2012 8:07 AM EDT Oxygen Saturation - - Inhaled Oxygen Concentration - - Weight 119.7 kg (264 lb) 01/03/2012 8:07 AM EDT Height 182.9 cm (6') 01/03/2012 8:07 AM EDT Body Mass Index 35.8 01/03/2012 8:07 AM EDT Plan of Treatment Health Maintenance Due Date Last Done Comments Anxiety Screening 09/04/1975 Depression Screening 09/04/1975 Hepatitis C Screening 09/04/1975 DTaP,Tdap,Td Vaccine (1 - Tdap) [address] Colonography 2002 Cologuard (FIT-DNA) 2002 Colonoscopy 2002 Colorectal Cancer Screening 2002 Diabetes Screening 2002 Fecal Occult Blood 2002 Prostate Cancer Screening Discussion 2002 Sigmoidoscopy 2002 Pneumococcal Vaccine: 50+ (1 of 1 - PCV) 09/04/2007 Shingrix Vaccine (1 of 2) 09/04/2007 Advance Directive Discussion 05/20/2024 Covid-19 Vaccine ( - 2024- season) 2025 Influenza Vaccine (#1) 2025 RSV Vaccine (1 - 1-dose 75+ series) 2032 Insurance [facility] [employer] PPO Care Teams Gear Tooth Grinding Machine Operator Relationship Specialty Start Date End Date Pipo Irizarry DO [address] [place] [address] PCP - General Family Medicine 11/05/11
--- OUTSIDE RECORDS SUMMARY | 2025-03-01 11:49 | XMS_ITS | Encounter Summary ---
Author Organization [facility] Address [facility] [place] [address] Care Team Providers Care Automobile Engine Assembler Name Role Phone Pipo Irizarry Olga DO Primary Care Provider [phone] Source Comments In the event this information is protected by the Federal Confidentiality of Alcohol and Drug AbusePatient Records regulations: The Federal rules restrict any use of the information to criminally investigate or prosecute any alcohol or drug abuse patient.[facility] Encounter Details Date Type Department Care Team (Late st Contact Info) Description 09/05/2023 Abstract Neurology [facility] [place] [id number] Mike Mazariegos MD [address] [place] [id number] Social History Tobacco Use Types Packs/Day Years Used Date Smoking Tobacco: Never Alcohol Use Standard Drinks/Week Comments No 0 (1 standard drink = 0.6 oz pur e alcohol) Area Deprivation Index Answer Date Paul rded National Score (1-100), lower number is lower ri sk Not on file 04/27/2020 State Score (1-10), lower number is lower risk N ot on file 04/27/2020 Data from: https://www.neighborhoodatlas.medicine.[facility]/. 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
--- OUTSIDE RECORDS SUMMARY | 2025-03-01 11:49 | XMS_ITS | Clinical Summary ---
Author Organization [facility] Address [address] [facility] [place] [address] Care Team Providers Care Political Science Instructor Name Role Phone Pipo Irizarry MD Primary Care Provider [phone] Social History Tobacco Use Types Packs/Day Years Used Date Smoking Tobacco: Never Assessed Sex and Gender Information Value Date Recorded Sex Assigned at Not on file Legal Sex Male 7:26 PM EDT Gender Identity Not on file Sexual Orientation Not on file Plan of Treatment Not on file Insurance [address] [phone] [facility] Care Teams Political Science Instructor Relationship Specialty Start Date End Date Pipo Irizarry MD [address] [place] [address] [place] [address] PCP - General 05/30/23
--- OUTSIDE RECORDS SUMMARY | 2025-03-01 11:49 | XMS_ITS | Clinical Summary ---
Author Organization [facility] Address [address] [facility] [place] [address] Phone Care Team Providers Care Cuff Runner Name Role Phone Unavailable Primary Care Provider Unavailabl e Social History Tobacco Use Types Packs/Day Years Used Date Smoking Tobacco: Never Assessed Sex and Gender Information Value Date Recorded Sex Assigned at Not on file Legal Sex Male 7:42 PM EST Gender Identity Not on file Sexual Orientation Not on file Plan of Treatment Not on file
[2025-03-01 12:16] LABS: Glucose Urine UA NEGATIVE (NEGATIVE)
[2025-03-01 12:18] LABS: Hematocrit 45.4 % (42.0-54.0); Hemoglobin 15.5 g/dL (14.0-18.0); Immature Granulocytes Abs Auto 0.01 10^3/uL (0.00-0.03); Immature Granulocytes Pct Auto 0.1 % (0.0-0.5); Lymphocytes Absolute Auto 3.0 10^3/uL (1.2-3.8); Mean Corpuscular HGB Conc 34.1 g/dL (29.9-35.2); Mean Corpuscular Hemoglobin 30.9 pg (25.9-34.0); Mean Corpuscular Volume 90.6 fL (80.0-94.0); Platelet Count 188 10^3/uL (150-450); Red Blood Count 5.01 10^6/uL (4.70-6.10); White Blood Count 7.5 10^3/uL (4.0-11.0)
[2025-03-01 12:38] LABS: Cast Seen? NONE SEEN #/LPF (NONE SEEN); Crystals Seen? None Seen #/HPF (None Seen)
[2025-03-01 12:44] LABS: Alanine Aminotransferase 28 U/L (16-63); Albumin Globulin Ratio 0.9; Albumin Level 3.5 g/dL (3.4-5.0); Alkaline Phosphatase 71 U/L (46-116); Anion Gap 6.9; Aspartate Amino Transferase 25 U/L (15-37); Blood Urea Nitrogen 17.0 mg/dL (7.0-18.0); Calcium 8.6 mg/dL (8.5-10.1); Carbon Dioxide 31.3 mmol/L (21.0-32.0); Chloride 106 mmol/L (98-107); Cholesterol 205 mg/dL (<=200); Estimated GFR (African America >60 (>=60 mL/min/1.73m^2); Estimated GFR (Non-African Ame 59 (>=60 mL/min/1.73m^2); Globulin 4.1 g/dL; Glucose 91 mg/dL (74-106); HDL Cholesterol 49 mg/dL (40-60); Potassium 4.2 mmol/L (3.5-5.1); Sodium 140 mmol/L (136-145); Thyroid Stimulating Hormone 1.700 uIU/mL (0.358-3.740); Total Protein 7.6 g/dL (6.4-8.2); Triglycerides 69 mg/dL (<=150); VLDL CHOLESTEROL 13.8 mg/dL
[2025-03-02 04:07] LABS: PSA, Free 0.35 ng/mL
== END 2025-03-01 11:40 | disposition home or self-care (01) ==
PROVIDERS: PCP Family Medicine; Visit Provider Family Medicine
DX: Z79.899 Other long term (current) drug therapy (principal); E78.5 Hyperlipidemia, unspecified; R35.1 Nocturia; R63.5 Abnormal weight gain; R97.20 Elevated prostate specific antigen [PSA]
CPT/HCPCS: 36415; 80053; 80061; 81001; 84153; 84154; 84443; 85025; 87086

== ENCOUNTER 2025-03-12 09:10 | Outpatient (OUT) | payer MEDICARE, OTHER, SELFPAY ==
--- OUTSIDE RECORDS SUMMARY | 2025-03-02 20:42 | XMS_ITS | Continuity of Care Document ---
Author Organization [facility] Address [address] [place] [address] Phone Care Team Providers Care Digital Engineer Name Role Phone Pipo Irizarry DO Primary Care Provider Pipo Irizarry DO Attending Provider [phone] Care Teams Patient Care Team Team Status: Active Member Role Status Meeta Irizarry DO Primary Care Provider Active Patient Care Team Team Status: Inactive Member Role Status Meeta Irizarry DO Primary Care Provider Active S tart: March 01, 2025 End: March 01, 2025DaBonnie Daniel ProviderActiveStart: March 01, 2025 End: March 01, 2025 Visit Care Team Team Status: Active Member Role Status Meeta Irizarry DO Primary Care Provider Active S tart: March 01, 2025 Bonnie Lazcano ProviderActiveStart: March 01, 2025 Visit Care Team Team Status: Inactive Member Role Status Meeta Irizarry DO Primary Care Provider Active S tart: March 02, 2025 End: March 02, 2025DaBonnie Daniel ProviderActiveStart: March 02, 2025 End: March 02, 2025 Chief Complaint and Reason for Visit Chief Complaint Admit Date Unknown March 01, 2025 1 1:54am Medicare AWV Initial/review labs March 02, 2025 8:16am Reason for Visit Admit Date Cervical pain March 02, 2025 8 :16am Elevated PSA October 14th, 2025 8 :16am Foot pain, right March 02, 2025 8 :16am Hyperlipidemia March 02, 2025 8 :16am Medicare annual wellness visit, initial March 02, 2025 8:16am Menieres disease March 02, 2025 8 :16am Other abnormal blood chemistry February 172024 8:16am Pain of left thumb March 02, 2025 8 :16am Polyarthralgia March 02, 2025 8 :16am Toe pain March 02, 2025 8 :16am Weight gain March 02, 2025 8 :16am Allergies, Adverse Reactions, Alerts Allergen Type Severity Reaction Last Updated Verified Status cefaclor Allergy Unknown sensitve scalp March 02, 2025 8:24a m Yes Active Social History Smoking Status Status Start Date End Date Date of Observa tion Never smoked tobacco (finding) March 02, 2025 8:35am Observation Status Observation Response Date of Response Legal Sex Male (finding) [facility] 1955 Family History Relationship Condition Age at Onset Recorded Date/T valdemar father Unknown grandparentDiabetes mellitusUnknownParkinson's diseaseUnknownMalignant neoplasm UnknownDeceasedUnknowngrandparentDeceasedUnknowngrandparentDeceasedUnknownfather Malignant neoplasmUnknownDiverticulitisUnknownmotherAlzheimer's diseaseUnknown DementiaUnknownMalignant neoplasmUnknownbrotherMalignant neoplasm of adrenal glandUnknownMalignant neoplasmUnknownsisterMalignant neoplasm of breastUnknown Malignant neoplasmUnknownbrotherMalignant neoplasmUnknownHistory of spinal surgeryUnknownsisterMalignant neoplasmUnknownHistory of knee joint replacement UnknownfatherMalignant neoplasmUnknown Problems Active Problems Medical Problem Onset Date Status Toe pain Unknown Active Numbness and tingling of both upper extremities Unknown Active Elevated PSA Unknown Active Medicare annual wellness visit, initial Unknown Active Pain of left thumb Unknown Active Prostate cancer screening Unknown Active 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 Unknown Active Pain of right heel Unknown Active Polyarthralgia Unknown Active Partial tear of right Achilles tendon Unknown Active Wellness examination Unknown Active Hyperlipidemia Unknown Active Other abnormal blood chemistry Unknown A ctive Sinusitis Unknown Active Weight gain Unknown Active Knee pain, left Unknown Active Foot pain, right Unknown Active Cervical pain Unknown Active Allergic rhinitis Unknown Active Menieres disease Unknown Active Medications Medication Status Dose Units Route Directions Qty Days St art Date Stop Date End Date Instructions Adherence Gabapentin 300 mg capsule Discontinued 0 .ROUTE.TIQDGEZ36Hbgd 2023 8:15amOctober 2023 8:35amTAKE 1 CAPSULE BY MOUTH THREE TIMES A DAYAmoxicillin-Pot Clavulanate 875-125 mg tabletDiscontinued 1TABPOTwice jbztn8869Vdahwwcx 2023 1:00amOctober 2024 8:27amwith food Gabapentin 300 mg capsuleDiscontinued0.ROUTE.OFZYTIK15Bqffx 2024 10:21am March 02, 2025 9:11amTAKE 1 CAPSULE BY MOUTH THREE TIMES A DAYCoQ-10 200 mg ActivePOOctober 2023 12:00amComplies with drug therapy Wxbgemqc-Xci-Ggdsh-Vit K-Lycop (Men's 50 Plus Multivitamin) 400-20-370 mcg kfeojyFrgjxg0GYXSYKtzgpJcjkimh 2023 12:00amComplies with drug therapy Meclizine 25 mg jkiezkQwfvxxrusknm13KNLXQxndu times daily as neededOct2023 12:00amOctober 2024 9:11amGabapentin 300 mg xisrjpiOeyvitajwpsd826AD POThree times dailyOctober 2023 8:35amApril 2024 10:21amGabapentin 300 mg mspkvyvByekfxhjofcm813BUYYCkroo dailyMay 2023 12:00amJune 2023 8:15amRed Yeast Rice 600 mg thbhbmmEjummjkegrlj952JRYNEvzlh dailyMay 2023 12:00amOctober 2023 8:20amgive with meal/snackAmoxicillin-Pot Clavulanate 875-125 mg hkrxdwEadmplyyaynf6DPXUIYnnle zyomn1130Cpv 4th, 2024 12:00amOctober 2023 8:16amRed Yeast Rice 600 mg itfatkvFuouao5375EIKQNouyBliuqho 2023 8:17amgive with meal/snackComplies with drug therapyGabapentin 300 mg tfimhzdMesaux279FJXHSdlpk times ghrup46141Eystuso 2024 9:08amComplies with drug therapyMeclizine 25 mg psqzwxJymarr61BUONSjmte times daily as needed for zkcjdhjcu54Hkaeuaw 2024 9:10amComplies with drug therapyOmega-3 Fatty Acids-Fish Oil (Fish Oil) 300-500 mg capsuleActiveCAPPONovember 2023 1:00am Complies with drug therapyAlbuterol Sulfate 90 mcg/actuation HFA aerosol inhaler Fzbzgxfqcujc5XFRXZQUHACTFBNSQCM 4-6 HOURS as needed for shortness of breath or wheezing6.77Nov2023 1:00amOctober 2024 8:27amMethylprednisolone (Medrol (Cm)) 4 mg tablets,dose dvfoGxtmmjhxtocn3ZNvlr package cfvitxujdz39 March 27, 2024 1:00amOctober 2024 8:27amPO PER PKG DIR Immunizations Immunization Event Date Not Given Reason Dose Number 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 Lot Number Vaccine Information Statement (VIS) Detail Administration Location Influenza Quadrivalent PF MDCK April 14 Influenza Quadrivalent PF [id number] Influenza Vaccine June 03, 2019 Procedures Procedure Date Performed Status Urine Culture March 01, 2025 active Relevant Diagnostic Tests and/or Laboratory Data Laboratory Results Test Collection Date/Time Result Date/Time Result Interpretation Reference Range Result Comment Performing Site Urine Other Casts March 01, 2025 11:54am NONE SEEN #/LPFNONE SEENProstate Specific Antigen TotalMarch 01, 2025 12:01pmOct2024 12:01pm1.2 ng/mL0.0-4.0Roche ECLIA methodology.According to the [place] [employer], Serum PSAshould decrease and remain at undetectable levels afterradical prostatectomy. The AUA defines biochemicalrecurrence as an initial PSA value 0.2 ng/mL or greaterfollowed by a subsequent confirmatory PSA value 0.2 ng/mLor greater. Values obtained with different assay methods orkits cannot be used interchangeably. Results cannot beinterpreted as absolute evidence of the presence or absenceof malignant disease.Thyroid Stimulating Hormone 3rd Gen March 01, 2025 12:01pmOct5 12:01pm1.700 u[iU]/mL0.358-3.740 Cholesterol/HDL RatioOctober 2024 12:01pmOctober 2024 12:01pm4.23.3 - 4.4 LOW RISK4.4 - 7.1 AVERAGE RISK7.1 - 11.0 MODERATE RISK>11.0 HIGH RISKAnion GapOctober 2024 12:01pmOctober 2024 12:01pm6.9Basophils # (Auto) March 01, 2025 12:01pmOctober 2024 12:01pm0.1 10 3/uL0.0-0.1Urine Other CrystalsOctober 2024 11:54amNone Seen #/HPFNone SeenFree Prostate Specific AntigenOctober 2024 12:01pmOctober 2024 12:01pm0.35 ng/mL N/Nita ECLIA methodology.Cholesterol LevelOct2024 12:01pmOctober 2024 12:40qz265 mg/dLAbove high normal<=200Albumin/Globulin RatioOctober 2024 12:01pmOctober 2024 12:01pm0.9Basophils (%) (Auto)March 01, 2025 12:01pmOctober 2024 12:01pm0.9 %0.2-2.0Urine BacteriaOctober 2024 11:54amNONE SEEN #/HPFNONE SEENPercent Free Prostate Specific AgOctober 2024 12:01pmOctober 2024 12:01pm29.2 %.The table below lists the probability of prostate cancer formen with non-suspicious YESSICA results andtotal PSA between4 and 10 ng/mL, by patient age (Danyell et al, ALFONZO 1998,279:1542). % Free PSA 50-64 yr 65-75 yr 0.00-10.00% 56% 55% 10.01-15.00% 24% 35% 15.01- 20.00% 17% 23% 20.01-25.00% 10% 20% >25.00% 5% 9%Please note: Catalona et al did not make specific recommendations regarding the use of percent free PSA for any other population of men.Performed at: [facility] [id number] Director: Isaac Ulrich PhD, Phone: [phone] CholesterolOctober 2024 12:01pmOctober 2024 12:01pm49 mg/dL40-60> or =60 mg/dl - LOW CARDIOVASCULAR RISK<40 mg/dl - HIGH CARDIOVASCULAR RISKAlbumin March 01, 2025 12:01pmOctober 2024 12:01pm3.5 g/dL3.4-5.0Eosinophils # (Auto)March 01, 2025 12:01pmOctober 2024 12:01pm0.2 10 3/uL0.0-0.7 Urine BilirubinOct2024 11:54amNEGATIVENEGATIVELDL Cholesterol, CalculatedOct2024 12:01pmOctober 2024 12:84xq594.0 mg/dL<100 mg/dl WPTMAIA688-785 mg/dl NEAR OR ABOVE LKEEUEV170-367 mg/dl BORDERLINE RASK301-689 mg/dl HIGH>190 mg/dl VERY HIGHAlkaline PhosphataseMarch 01, 2025 12:01pmOctober 2024 12:01pm71 U/U21-742Mhkgicvcwyn (%) (Auto)March 01, 2025 12:01pmOctober 2024 12:01pm3.2 %0.9-7.0Urine Occult Blood March 01, 2025 11:54amNEGATIVENEGATIVETriglycerides LevelOct2024 12:01pmOctober 2024 12:01pm69 mg/dL<=150Alanine Aminotransferase (ALT/SGPT)March 01, 2025 12:01pmOctober 2024 12:01pm28 U/L16-63 HematocritOct2024 12:01pmOctober 2024 12:01pm45.4 %42.0-54.0 Urine AppearanceOct2024 11:54amCLEARCLEARVLDL CholesterolOct2024 12:01pmOct2024 12:01pm13.8 mg/dLAspartate Amino Transf (AST/SGOT)March 01, 2025 12:01pmOct2024 12:01pm25 U/L15-37 HemoglobinOctober 2024 12:01pmOct2024 12:01pm15.5 g/dL14.0-18.0 Urine ColorOct2024 11:54amYELLOWYELLOWBUN/Creatinine RatioOct2024 12:01pmOct2024 12:01pm13.8Immature Granulocyte # (Auto) March 01, 2025 12:01pmOct2024 12:01pm0.01 10 3/uL0.00-0.03Urine Glucose (UA)March 01, 2025 11:54amNEGATIVE mg/dLNEGATIVEBlood Urea Nitrogen March 01, 2025 12:01pmOctober 2024 12:01pm17.0 mg/dL7.0-18.0Immature Granulocyte % (Auto)March 01, 2025 12:01pmOctober 2024 12:01pm0.1 % 0.0-0.5Urine KetonesOctober 2024 11:54amNEGATIVE mg/dLNEGATIVECalcium LevelOctober 2024 12:01pmOctober 2024 12:01pm8.6 mg/dL8.5-10.1 Lymphocytes # (Auto)March 01, 2025 12:01pmOctober 2024 12:01pm3.0 10 3/uL1.2-3.8Urine Leukocyte EsteraseOct2024 11:54amNEGATIVENEGATIVE Chloride LevelOctober 2024 12:01pmOctober 2024 12:88gk767 mmol/L 98-107Lymphocytes (%) (Auto)March 01, 2025 12:01pmOctober 2024 12:01pm 40.0 %20.5-60.0Urine MucusOctober 2024 11:54amNONE SEENNONE SEENCarbon Dioxide LevelOctober 5 12:01pmOctober 2024 12:01pm31.3 mmol/L 21.0-32.0Mean Corpuscular HemoglobinOctober 2024 12:01pmOctober 2024 12:01pm30.9 pg25.9-34.0Urine NitriteOct2024 11:54amNEGATIVENEGATIVE CreatinineOct2024 12:01pmOctober 2024 12:01pm1.23 mg/dL 0.70-1.30Mean Corpuscular Hemoglobin ConcentOct2024 12:01pmOct2024 12:01pm34.1 g/dL29.9-35.2Urine pHOct2024 11:54am6.05.0-9.0 Estimated GFR ()March 01, 2025 12:01pmOct2024 12:01pm>60>=60 mL/min/1.73m 2Mean Corpuscular VolumeOct2024 12:01pm March 01, 2025 12:01pm90.6 fL80.0-94.0Urine ProteinOct2024 11:54amNEGATIVE mg/dLNEG/TRACEEstimated GFR (Non- AmericanOct2024 12:01pmOctober 2024 12:69wh06Cxhtw low normal>=60 mL/min/1.73m 2 Monocytes # (Auto)March 01, 2025 12:01pmOctober 2024 12:01pm0.6 10 3/uL0.3-0.8Urine RBCOctober 2024 11:16pm7-5 #/HPF0-2GlobulinOct2024 12:01pmOctober 2024 12:01pm4.1 g/dLMonocytes (%) (Auto)March 01, 2025 12:01pmOctober 2024 12:01pm7.5 %1.7-12.0Urine Specific GravityOct2024 11:54am1.0151.005-1.025Glucose LevelOctober 2024 12:01pm March 01, 2025 12:01pm91 mg/lB59-897Lhvz Platelet VolumeOctober 2024 12:01pmOct2024 12:01pm9.2 fLBelow low normal9.5-13.5Urine Squamous Epithelial CellsOctober 2024 11:54amNONE SEEN #/LPFNONE/RAREPotassium LevelOctober 2024 12:01pmOctober 2024 12:01pm4.2 mmol/L3.5-5.1 Neutrophils # (Auto)March 01, 2025 12:01pmOct2024 12:01pm3.6 10 3/uL1.4-6.5Urine UrobilinogenOctober 2024 11:54am0.2 EU/dL0.2-1.0Sodium LevelOctober 2024 12:01pmOctober 2024 12:73ic660 mmol/A932-113 Neutrophils (%) (Auto)March 01, 2025 12:01pmOctober 2024 12:01pm48.3 % 43.0-75.0Urine WBCOctober 2024 11:54amNONE SEEN #/HPFNONE SEENTotal BilirubinOctober 2024 12:01pmOctober 2024 12:01pm0.7 mg/dL0.2-1.0 Platelet CountOct2024 12:01pmOctober 2024 12:49nq305 10 3/uL 150-450Total ProteinOctober 2024 12:01pmOctober 2024 12:01pm7.6 g/dL 6.4-8.2Red Blood CountOctober 2024 12:01pmOctober 2024 12:01pm5.01 10 6/uL4.70-6.10Red Cell Distribution WidthOctober 2024 12:01pmOct2024 12:01pm12.6 %11.0-15.0Corrected White Blood CountOctober 2024 12:01pmOctober 2024 12:01pm7.5 10 3/uL4.0-11.0 Vital Signs Vital Reading Result Reference Range Collection Date/Time Height 71 [in_i] March 02, 2025 8:53dwHdhxbc46.00 [facility] 20[facility] 8:13amBody Temperature 97.6 [degF]97.6-99.0[facility] 2024 8:13amHeart Rate70 /hlh86-326Grzwtnr 2024 8:13amOxygen saturation by Pulse tzpywxyt27 %95-100[facility] 2024 8:13amBP Qayzbnmz391 mm[Hg]100-140[facility] 2024 8:13amBP Zwiruesga19 mm[Hg]60-100[facility] 2024 8:13amBMI (Body Mass Index)7.9 kg/c2Vxpzmwx 2024 8:13am Advance Directives Advance Directive Response Recorded Date/ Time Advance Directives No June 01, 2021 1:42pm Insurance Providers Guarantor Jason Morales Address [address] [place] [id number] Info.Home Phone: Payer Policy Id Subscriber's Name Subscriber Id Effectiv e Date Expiration Date [facility] [id number] Jason Sorianoe [id number] Inessa [id number] Encounters Encounter Location(s) Arrival/Admit Date Discharge/Depart Date Provider(s) Departed Referred -[facility] March 01, 2025 11:54am March 01, 2025 11:55am Pipo Irizarry DO Non-patient / Non-visit -[facility] 2024 12:01pm FALLON Garciaeparted Physician/Provider Office Visit-[facility] 2024 9:11aKadi Irizarry DO Recent Diagnosis Onset Date Admit Date Cervical pain Unknown March 02 8:16am Elevated PSA Unknown March 02 8:16am Foot pain, right Unknown March 02, 2 025 8:16am Hyperlipidemia Unknown March 02 8:16am Medicare annual wellness visit, initial Unknown March 02, 2025 8:16am Menieres disease Unknown March 02, 2 025 8:16am Other abnormal blood chemistry Unknown O caober 2024 8:16am Pain of left thumb Unknown March 02, 2025 8:16am Polyarthralgia Unknown March 02 8:16am Toe pain Unknown March 02 8:16am Weight gain Unknown March 02 8:16am Assessments Author Pipo Irizarry [facility] 2024 9:18amThe above note written by ___Kathe Lloyd____ acting as human recorder, note dictated by Dr. Cruz .I performed the above HPI, ROS, and Examination. I formulated and dictated the treatment plan and was present for entire encounter. Pipo Irizarry D.O. Plan of Treatment Author Kathe Lloyd [facility] 2024 9:10amPerformed today. Discussed his PSA today. Total PSA is 1.2 down from 1.880 in 2023. Free PSA is 0.35. % Free PSA is 29.2. At this time I feel we can continue to monitor his PSA level. He does ride his bike without any chest pain or pressure. He is able to hike without any shortness of breath. He hiked recently on a very steep hike and he did stop half way but only because it was very steep. We discussed his cholesterol results today. Total is 205. HDL is 49. LDL is 143. Triglycerides are 69. VLDL is 13.8. I did recommend he be on a statin medication, he refuses. I did recommend he do a coronary calcium score, I did explain to him that this measures the plaque in the coronary arteries. He is agreeable and an order is provided. He can call for results. He voices that he does more biking and outside work than he did previously, but he does try to stay as physically active as he can. His BUN is 17. Creatinine is 1.23. EGFR is 59. He is to stay well hydrated with plenty of water daily. He should drink at least 2 liters of water each day and continue to avoid NSAID medication. His TSH is normal at 1.700. He does continue to use and benefit from the Gabapentin. Side effects/risks/benefits of medication were reviewed. He does try not to take the medication for a few days and his neck/shoulder pain will return so he will begin taking it again. He does only take two capsules each day most days. Due to multiple joints causing pain I am going to order a rheumatoid panel to rule out any abnormalities, if this is positive we will refer him to rheumatology, if negative I would like him to return to see Dr. Coley to discuss possible injections. He voices that at times he has had pressure/pain in both his elbows, similar to tennis elbow, this lasted for months but now he does not feel it as much any longer. Today compared to yesterday, he carried four forty pound bags of salt for his softener, he carried them in his right hand because of his left hand thumb pain and he did not feel the pain in his right elbow. On exam I did advise him that the location of his pain is normally where osteoarthritis is. However to be sure that we are not missing anything I would like to order a rheumatoid panel to be sure we are not missing anything. If this is negative I did recommend he return to see Dr. Coley to discuss possible injections. The joint has been warm. He does not have pain in his wrist. Again, will order a rheumatoid panel to rule out abnormalities. He voices that his right foot is affecting his ability to stay active, his foot is killing him. If this is not rheumatologic in nature then I would like him to see Dr. Coley for evaluation. In March (2023) and July (2024) he had several episodes of vomiting with his Meniere's disease. If he stays well hydrated and rested and gets plenty of sleep he does not have any trouble with this. He would like to have Meclizine on hand to use for this. I will provide him with this. He rarely uses the medication. Future Tests Future scheduled test information is unavailable Pending Tests Test Name Ordered Date Scheduled Date Urine Culture March 01, 2025 11:54am Cyclic Citrulliated Pep AbOctober 2024 8:45amComprehensive Metabolic Panel March 02, 2025 8:57am1 YearsRheumatoid FactorOctober 2024 8:45amCT heart calcium score woOctober 2024 8:52am Future Visits Future appointment information is unavailable Referrals to Other Providers Referral information is unavailable Future Procedures Procedure Name Ordered Date Scheduled Date Urine Culture March 02, 2025 1:47pm Octobe r 2024 11:54am MINA Antinuclear Antibodies March 02, 2025 8: 45am Complete Blood Count Auto DiffOctober 2024 8:57am1 YearsC-Reactive Protein March 02, 2025 8:45amUrine CultureOctober 2024 8:58am1 Years Erythrocyte Sedimentation RateOctober 2024 8:45amLipid PanelOctober 2024 8:58am1 YearsPSA Diagnostic (Total & Free)March 02, 2025 8:58am1 Years Thyroid Stimulating HormoneOctober 2024 8:58am1 YearsUrinalysisOctober 2024 8:58am1 YearsUric AcidOctober 2024 8:45am Future Medications Future medication information is unavailable Patient Instructions Patient instructions are unavailable
--- OUTSIDE RECORDS SUMMARY | 2025-03-12 09:15 | XMS_ITS | Clinical Summary ---
Author Organization [facility] Address [address] 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 Name Role Phone Unavailable Primary Care Provider Unavailabl e Encounters DateTypeDepartmentCare VnchQlnglwabmkm47/16/2025Transcribe Orders [facility] CARE CONNECTIONS VIRTUAL [address] [place] [address] Pipo Irizarry DO Hyperlipidemia, unspecified (Primary Dx)from Last 3 Months Social History Tobacco UseTypesPacks/DayYears UsedDateSmoking Tobacco: Never AssessedSex and Gender InformationValueDate RecordedSex Assigned at BirthNot on fileLegal Sex Male04/14/2022 7:42 PM ESTGender IdentityNot on fileSexual OrientationNot on file Plan of Treatment DateTypeDepartmentCare Team (Latest Contact Info)Vghjyekzaeo37/18/2025 5:00 PM ESTAppointment [facility] [address] [place] [id number] Health MaintenanceDue DateLast DoneCommentsCT Ponbsqtmfwxk80/17/1958Colonoscopy 1957Colorectal Cancer Ukgkjufxx22/17/1958FIT-DNA (Cologuard)1957FIT 1957Lipid Panel1957 3766Vuzccaykbyxvu17/17/1958Welcome to Medicare Visit 1957MMR Vaccines (1 of 1 - Standard series)1958Hepatitis C Screening 09/04/1975DTaP/Tdap/Td Vaccines (1 - Tdap)09/04/1979PSA Prostate Cancer Mscumsjue62/17/2008Pneumococcal Vaccine (1 of 1 - PCV)09/04/2007Zoster Vaccines (1 of 2)09/04/2007Influenza Vaccine (#1)2024OVID-19 Vaccine ( - 2024- season)2025RSV High Risk: (Elderly (60+) or Population) (1 - 1- dose 75+ series)2032HIB VaccinesAged OutNo longer eligible based on patient's age to complete this topicHPV VaccinesAged OutNo longer eligible based on patient's age to complete this topicHepatitis A VaccinesAged OutNo longer eligible based on patient's age to complete this topicHepatitis B VaccinesAged OutNo longer eligible based on patient's age to complete this topicIPV Vaccines Aged OutNo longer eligible based on patient's age to complete this topic Meningococcal VaccineAged OutNo longer eligible based on patient's age to complete this topicRotavirus VaccinesAged OutNo longer eligible based on patient's age to complete this topic Insurance * Guarantor: Jason MoralesAccount TypeRelation to PatientDate of BirthPhone Billing AddressPersonal/EorqjzEdtf57/17/[address] [address]
--- OUTSIDE RECORDS SUMMARY | 2025-03-12 09:15 | XMS_ITS | Clinical Summary ---
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 Name Role Phone Pipo Irizarry DO Primary Care Provider [phone] Allergies Active AllergyReactionsCriticalityNoted DateCommentsCefaclorIntolerance 11/13/2011 Medications MedicationSigDispense QuantityRefillsLast FilledStart DateEnd DateStatus GABAPENTIN 300 mg capsule Indications:Rsvdyfpueml755 mg three times daily.11/02/2011ctive FLUTICASONE PROPIONATE (FLONASE NASAL) Use in the nose as needed.Active Active Problems ProblemNoted DateDiagnosed DateCervical ikckkpwg33/16/2012Cervical spondylosis without grnzrkhexp33/16/2012 Family History Medical HistoryRelationCommentsCancerBrotheradrenal corticalGeneticBrotherLynch syndrome TND5ZmyqecAutmmxiz GrandmotherpancreasBreast CancerMotherCancerMother endometrialColon CancerPaternal GrandfatherBreast CancerSisterRelationStatus CommentsBrotherAliveFatherAliveMaternal GrandfatherDeceasedMaternal Grandmother DeceasedMotherDeceasedPaternal GrandfatherDeceasedPaternal GrandmotherDeceased SisterAlive Social History Tobacco UseTypesPacks/DayYears UsedDateSmoking Tobacco: NeverAlcohol UseStandard Drinks/WeekCommentsNo0 (1 standard drink = 0.6 oz pure alcohol)Area Deprivation IndexAnswerDate RecordedNational Score (1-100), lower number is lower riskNot on file04/27/2020State Score (1-10), lower number is lower riskNot on file 04/27/2020Data from: https://www.neighborhoodatlas.medicine.[facility].edu/. 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 on fileNot on file Last Filed Vital Signs Vital SignReadingTime TakenCommentsBlood Elwysree062/7608 8:07 AM EDT Slgub376901/03/2012 8:07 AM EDTTemperature--Respiratory Jetd175601/03/2012 8:07 AM EDTOxygen Saturation--Inhaled Oxygen Concentration--Keqxpk206.7 kg (264 lb) 01/03/2012 8:07 AM OGTFphcef885.9 cm (6')01/03/2012 8:07 AM EDTBody Mass Index 35.808 8:07 AM EDT Plan of Treatment Health MaintenanceDue DateLast DoneCommentsAnxiety Xqrnfghxw87/17/1976Depression Ltlptljhn87/17/1976Hepatitis C Kplmbakal16/17/1976DTaP,Tdap,Td Vaccine (1 - Tdap)1976Lipid Fsuejpdnb04/17/1993CT Qzfmgqsnpfxv67/17/2003Cologuard (FIT-DNA)09/03/20024360Halpibybyqw56/17/2003Colorectal Cancer Drqmzqcnh60/17/2003 Diabetes Skvtvlzgu51/17/2003Fecal Occult Blood2002Prostate Cancer Screening Pmlnabtpzo87/17/2579Pfijwyxwzoobq35/17/2003Pneumococcal Vaccine: 50+ (1 of 1 - PCV)09/04/2007Shingrix Vaccine (1 of 2)09/04/2007dvance Directive Seafhzuevi13/01/2025ovid-19 Vaccine (1 - 2024- season)2025Influenza Vaccine (#1)2025RSV Vaccine (1 - 1-dose 75+ series)[address] [place] [address] Care Teams Team MemberRelationshipSpecialtyStart DateEnd Date Pipo Irizarry DO [address] [place] [address] PCP - GeneralFamily Medicine11/05/11
--- OUTSIDE RECORDS SUMMARY | 2025-03-12 09:16 | XMS_ITS | Encounter Summary ---
Author Organization [facility] Address [address]. 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 Name Role Phone Unavailable Primary Care Provider Unavailabl e Reason for Referral * Imaging (Routine) - AuthorizedSpecialtyDiagnoses / ProceduresReferred By ContactReferred To ContactRadiology Diagnoses Hyperlipidemia, unspecified Procedures CT cardiac scoring wo IV contrast Pipo Irizarry DO [address] [place] [address] Phone: tel: fax: Referral IDStatusReasonStart DateExpiration DateVisits RequestedVisits [id number] Perform Procedure / Encounter Details DateTypeDepartmentCare Team (Latest Contact Info)Nbihndrfdqb18/16/2025Transcribe Orders [facility] CARE CONNECTIONS VIRTUAL [address] [facility] [place] [address] Pipo Irizarry DO [address] [place] [address] Hyperlipidemia, unspecified (Primary Dx) Social History Tobacco UseTypesPacks/DayYears UsedDateSmoking Tobacco: Never AssessedSex and Gender InformationValueDate RecordedSex Assigned at BirthNot on fileLegal Sex Male04/14/2022 7:42 PM ESTGender IdentityNot on fileSexual OrientationNot on filedocumented as of this encounter Plan of Treatment DateTypeDepartmentCare Team (Latest Contact Info)Hzujeobssfg56/18/2025 5:[address] [place] [address] NameTypePriorityAssociated DiagnosesOrder ScheduleCT cardiac scoring wo IV contrastImagingRoutine Hyperlipidemia, unspecified Expected: 03/04/2025, Expires: 03/04/2026documented as of this encounter Visit Diagnoses Diagnosis Hyperlipidemia, unspecified- Primary documented in this encounter
--- OUTSIDE RECORDS SUMMARY | 2025-03-12 09:16 | XMS_ITS | CCD ---
Author Organization [facility] Care Team Providers Care Can Cutter Name Role Phone CIRODIALLOMoisés SOREN ([facility] [place] Unavailable Unavaila SAUL Patiño Unavailable Unavailable APURVA RODRIGES Unavailable Unavailable DR SAUL MIN Attending Unavailable MECHELLE, DR HUGHES Consulting Unavailable DR SAUL MIN Admitting Unavailable DO Saul Min Primary Care Provider [phone] [facility] Attending Provider [phone] Saul Min Unavailable SAUL MIN Referring Unavailable DO Saul Min Primary Care Provider DO Saul Min Attending Provider Saul Min DO Primary Care Provider Saul Min DO Attending Provider Saul Min DO Primary Care Provider Saul Min DO Attending Provider Saul Min DO Primary Care Provider Saul Min DO Attending Provider [phone] Saul Min Attending Unavailable Saul Min Primary Care Unavailable Saul Min Admitting Unavailable Allergies Allergy ClassificationReported Allergen(s)Allergy TypeDate of OnsetReaction(s) Facility (2 sources)cefaclor; Translations: [CEFACLOR]Drug Bnyltpm50-17-6133[facility]xfnkn[facility] Repository (8 sources)CefaclorDrug Allergysensitve [facility] Repository Medications Current Medications MedicationDrug Class(es)DatesSig (Normalized)Sig (Original)Albuterol Sulfate 90 mcg/actuation HFA aerosol inhaler (1 source)Start: 27-41-9288Dlouqypyx Sulfate 90 mcg/actuation HFA aerosol inhaler Active 2 INH INHALATION EVERY 4-6 HOURS as needed for shortness of breath or wheezing .7 7 March 27, 2024 12:00amazithromycin 250 mg oral tablet (2 sources)Macrolide AntimicrobialStart: 62-22-2671Veqjnpgganca 250 MG 2 tablets on day 1 Orally then take 1 tablet daily on days 2-5 for 5 days May, ActiveCoQ-10 (7 sources)CoQ-10 ActiveCoQ-10 200 mg (4 sources)Start: 98-48-5968PqB-10 200 mg Active PO March 03, 2024 12:00am Complies with drug therapyStart: 91-21-4547VhE-10 200 mg Active PO March 02, 2024 11:00pmStart: 31-80-7095EeL-10 200 mg Active PO March 03, 2024 12:00am gabapentin 300 mg oral capsule (20 sources)Anti-epileptic AgentStart: 54-65-2895hndy 1 capsule by mouth three times dailyGabapentin 300 mg capsule Active 300 MG PO Three times daily 270 March 02, 2025 9:08am Complies with drug therapyStart: 08-18-2024 End: 55-72-8596zubd 1 capsule by mouth three times dailyGabapentin 300 mg capsule Discontinued 0 .ROUTE .COMPLEX August 18, 2024 10:21am March 02, 2025 9:11am TAKE 1 CAPSULE BY MOUTH THREE TIMES A DAYStart: 03-03-2024 End: 54-91-2283pqmv 1 capsule by mouth three times dailyGabapentin 300 mg capsule Discontinued 300 MG PO Three times daily March 03, 2024 8:35am August 18, 2024 10:21amStart: 11-06-2023 End: 07-81-3727wbgn 1 capsule by mouth three times dailyGabapentin 300 mg capsule Discontinued 0 .ROUTE .COMPLEX November 06, 2023 8:15am March 03, 2024 8:35am TAKE 1 CAPSULE BY MOUTH THREE TIMES A DAYStart: 09-21-2023 End: 88-97-2727cieh 1 capsule by mouth twice dailyGabapentin 300 mg capsule Discontinued 300 MG PO Twice daily September 21, 2023 12:00am November 06, 2023 8:15am take 1 capsule by mouth three times dailyGabapentin 300 MG TAKE 1 CAPSULE BY MOUTH THREE TIMES A DAY Activemeclizine hydrochloride 25 mg oral tablet (12 sources)AntiemeticStart: 03-03-2024 End: 83-91-9719qffm 1 tablet by mouth three times daily as needed for dizziness Meclizine 25 mg tablet Active 25 MG PO Three times daily as needed for dizziness 90 March 02, 2025 9:10am Complies with drug therapyStart: 64-12-7912ggbe 1 tablet by mouth three times daily as neededMeclizine HCl 25 mg 1 tablet Orally tid prn Jul, YxpdcbLswambnv-Byh-Ovttl-Vit K-Lycop (Men's 50 Plus Multivitamin) 400-20-370 mcg tablet (4 sources)Start: 75-92-7333gsod 50-400 tablets by mouth once daily Zghkitdd-Zxq-Vshct-Vit K-Lycop (Men's 50 Plus Multivitamin) 400-20-370 mcg tablet Active 1 TAB PO Daily March 03, 2024 12:00am Complies with drug therapyStart: 81-11-1730umgu 50-400 tablets by mouth once daily Ufixrrhq-Wzd-Wxqcz-Vit K-Lycop (Men's 50 Plus Multivitamin) 400-20-370 mcg tablet Active 1 TAB PO Daily March 02, 2024 11:00pmStart: 81-23-1552wiyx 50- 400 tablets by mouth once uyawqCszvjiwq-Fbn-Wlivr-Vit K-Lycop (Men's 50 Plus Multivitamin) 400-20-370 mcg tablet Active 1 TAB PO Daily March 03, 2024 12:00amOmega-3 Fatty Acids-Fish Oil (Fish Oil) 300-500 mg capsule (3 sources)Start: 11-89-6816Vujgx-3 Fatty Acids-Fish Oil (Fish Oil) 300-500 mg capsule Active CAP PO March 27, 2024 1:00am Complies with drug therapyStart: 11-36-9542Oxhxu-3 Fatty Acids-Fish Oil (Fish Oil) 300-500 mg capsule Active CAP PO March 27, 2024 12:00amRed Yeast Rice (7 sources)Red Yeast Rice Activered yeast rice 600 mg oral capsule (9 sources)Start: 87-73-2784dhkn 1 capsule by mouth onceRed Yeast Rice 600 mg capsule Active 1200 MG PO Once March 03, 2024 8:17am give with meal/snack Complies with drug therapyStart: 49-63-4246scsz 1200 mg by mouth onceRed Yeast Rice Active 1200 MG PO Once March 03, 2024 8:17am give with meal/snackStart: 09-21-2023 End: 18-96-0709rozl 1 capsule by mouth twice dailyRed Yeast Rice 600 mg capsule Discontinued 600 MG PO Twice daily September 21, 2023 12:00am March 03, 2024 8:20am give with meal/snackVitamin D (7 sources)Vitamin D Active Completed/Discontinued Medications MedicationDrug Class(es)DatesSig (Normalized)Sig (Original)[id number] 200 actuat albuterol 0.09 mg/actuat metered dose inhaler (2 sources)beta2-Adrenergic AgonistStart: 03-27-2024 End: 05-90-3734Fdyxckbal Sulfate 90 mcg/actuation HFA aerosol inhaler Discontinued 2 INH INHALATION EVERY 4-6 HOURS as needed for shortness of breath or wheezing 6.7 7 March 27, 2024 1:00am March 02, 2025 8:27amamoxicillin 875 mg / clavulanate 125 mg oral tablet (7 sources)Penicillin-class AntibacterialStart: 04-21-2024 End: 40-69-1230jysq 1 tablet by mouth twice daily at mealtimeAmoxicillin-Pot Clavulanate 875-125 mg tablet Discontinued 1 TAB PO Twice daily April 1:00am March 02, 2025 8:27am with foodStart: 09-21-2023 End: 60-02-6652ccme 1 tablet by mouth twice dailyAmoxicillin-Pot Clavulanate 875-125 mg tablet Discontinued 1 TAB PO Twice daily 08 03September 202:00am March 03, 2024 8:16amB Complex - (7 sources)Start: 10-37-5750afaj 1 tablet by mouth once daily as neededB Complex - 1 tablet Orally qd Jul, Not-Taking/PRNStart: 60-47-9911vfsp 1 tablet by mouth once dailyB Complex - 1 tablet Orally qd Jul, Not-Taking fluticasone propionate 0.05 mg/actuat metered dose nasal spray (7 sources)Corticosteroidtake 1 spray(s) nasal route once daily as needed Fluticasone Propionate 50 MCG/ACT USE 1 SPRAY IN EACH NOSTRIL ONCE DAILY for 30 prn Not-Taking/PRNtake 1 spray(s) nasal route once daily as neededFluticasone Propionate 50 MCG/ACT USE 1 SPRAY IN EACH NOSTRIL ONCE DAILY for 30 prn Not-Takingmagnesium oxide 400 mg oral tablet (7 sources)Start: 70-42-3499teol 1 tablet by mouth every twenty-four hours Magnesium Oxide 400 MG 1 tablet Orally Once a day Jul, Not-Taking/PRN methylPREDNISolone 4 mg oral tablet (3 sources)CorticosteroidStart: 03-27-2024 End: 75-15-3130ejfi 1 tablet by mouth onceMethylprednisolone (Medrol (Cm)) 4 mg tablets,dose pack Discontinued 0 PO per package directions March 27, 2024 1:00am March 02, 2025 8:27am PO PER PKG DIRMulti Vitamin Mens (7 sources)take 1 tablet by mouth once daily as neededMulti Vitamin Mens 1 tablet Orally Once a day Not-Taking/PRNtake 1 tablet by mouth once dailyMulti Vitamin Mens 1 tablet Orally Once a day Not-TakingOmega 3 1000 MG (7 sources)take 1 capsule by mouth once daily as neededOmega 3 1000 MG 1 capsule Orally Once a day Not-Taking/PRNtake 1 capsule by mouth once dailyOmega 3 1000 MG 1 capsule Orally Once a day Not-Taking Problems Active Problems Problem ClassificationProblemDateDocumented DateEpisodic/ChronicConditions associated with dizziness or vertigo (12 sources)Meniere's disease; Translations: [Meniere's disease, unspecified ear]ChronicDisorders of lipid metabolism (16 sources)Hyperlipidemia; Translations: [Hyperlipidemia, unspecified]Chronic Other aftercare (2 sources)Long-term current use of drug therapy; Translations: [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]55-85-7977JdjoejujQbbqb connective tissue disease (1 source)Pain in unspecified handEpisodicOther connective tissue disease (1 source)Pain in unspecified lower legEpisodicOther connective tissue disease (2 sources)Heel pain; Translations: [Pain in right foot]81-02-5352JzcqrkbnPeatt connective tissue disease (2 sources)Foot pain; Translations: [Pain in right foot]33-52-1523FigqhefuAjmjz connective tissue disease (4 sources)Pain in right foot; Translations: [Pain in limb]01-29-7808Dtozooml Other connective tissue disease (4 sources)Pain in toe; Translations: [Pain in unspecified toe(s)]03-02-2025 EpisodicOther connective tissue disease (4 sources)Pain in left thumb; Translations: [Pain in left finger(s)]03-02-2025 EpisodicOther connective tissue disease (2 sources)Pain in right heel; Translations: [Pain in right foot]03-03-2024 EpisodicOther connective tissue disease (4 sources)Pain in right foot; Translations: [Pain in right foot]03-03-2024 EpisodicOther gastrointestinal disorders (1 source)Diarrhea, unspecified; Translations: [DIARRHEA UNSPECIFIED]Onset: 00-31-2274ScspirtvZssoh inflammatory condition of skin (7 sources)Psoriasis; Translations: [Psoriasis, unspecified]ChronicOther nervous system disorders (4 sources)Paresthesia of upper limb; Translations: [Anesthesia of skin] 50-85-6808ZodhihgvEzdko nervous system disorders (2 sources)Anesthesia of skin; Translations: [Disturbance of skin sensation] 12-99-4611EjxbtwxgAwocu non-traumatic joint disorders (7 sources)Pain in left knee; Translations: [Left knee pain]EpisodicOther non- traumatic joint disorders (4 sources)Multiple joint pain; Translations: [Pain in unspecified joint] 99-53-3110EsqkrfwsQrjvw nutritional; endocrine; and metabolic disorders (3 sources)Abnormal weight gain; Translations: [Abnormal weight gain]Episodic Other nutritional; endocrine; and metabolic disorders (6 sources)Weight increased; Translations: [Abnormal weight gain]03-03-2024 EpisodicOther screening for suspected conditions (not mental disorders or infectious disease) (20 sources)Encounter for screening for malignant neoplasm of prostate; Translations: [Patient encounter status]EpisodicOther upper respiratory disease (10 sources)Allergic rhinitis; Translations: [Allergic rhinitis, unspecified] 27-67-2189OjproyvAqyau upper respiratory disease (1 source)Allergic rhinitis, unspecified; Translations: [Allergic rhinitis, cause unspecified]50-84-2557UjbuoxpDufzc upper respiratory disease (1 source)Nasal congestion; Translations: [NASAL CONGESTION]Onset: 06-05-2021 EpisodicOther upper respiratory infections (5 sources)Sinusitis; Translations: [Chronic sinusitis, unspecified]09-21-2023 ChronicSpondylosis; intervertebral disc disorders; other back problems (9 sources)Cervicalgia; Translations: [Neck pain]EpisodicSprains and strains (3 sources)Partial division, tendo calcaneus (Achilles tendon); Translations: [Strain of right Achilles tendon, initial encounter]77-58-2943Unacudnj Unclassified (2 sources)Family history of malignant neoplasm of digestive organs; Translations: [Family history of malignant neoplasm of breast]Onset: 11-13-2017 EpisodicUnclassified (2 sources)CONTACT W/AND (SUSP) EXPOS COVID-19; Translations: [CONTACT W/AND (SUSP) EXPOS COVID-19]Onset: 18-63-9081Pbjut infection (1 source)COVID-19; Translations: [COVID-19]Onset: 06-05-2021 Past or Other Problems Problem ClassificationProblemDateDocumented DateEpisodic/ChronicUnclassified (1 source)CONTACT W/AND (SUSP) EXPOS COVID-19; Translations: [CONTACT W/AND (SUSP) EXPOS COVID-19]Onset: 06-01-2021 Results Test NameValueInterpretationReference RangeFacilityBasophils Auto (Bld) [#/Vol] Ordered By: Saul Min on 53-32-6376Hgmrtkzoq (Bld) [#/Vol]0.1 10 3/uL0.0-0.1 [facility] CenterBasophils/100 WBC Auto (Bld)Ordered By: Saul Min on 40-75-6392Gkjvzkmjh/100 WBC (Bld)0.9 %0.2-2.0[facility] CenterCholesterol in LDL Calc [Mass/Vol]Ordered By: Saul Min on 54-64-7180Ulmhonzipvc in LDL [Mass/Vol]143.0 mg/dLSamaritan North Health CenterComment on above:<100 mg/dl IDSJQNN354-850 mg/dl NEAR OR ABOVE PIOVUIY421- 159 mg/dl BORDERLINE NPZV949-005 mg/dl HIGH>190 mg/dl VERY HIGHCholesterol in VLDL Calc [Mass/Vol]Ordered By: Saul Min on 17-46-5828Iiugoptfqzo in VLDL [Mass/Vol]13.8 mg/dLSamaritan North Health CenterEosinophils/100 WBC Auto (Bld)Ordered By: Saul Min on 90-56-2482Zllhlwugklb/100 WBC (Bld)3.2 %0.9-7.0 [facility] CenterErythrocyte distribution width Auto (RBC) [Ratio]Ordered By: Saul Min on 80-68-0129Sukwahutlpy distribution width (RBC) [Ratio]12.6 %11.0-15.0[facility] CenterGlobulin Calc (S) [Mass/Vol]Ordered By: Saul Min on 44-14-0904Ldorcepw (S) [Mass/Vol]4.1 g/dL [facility] CenterGlomerular filtration rate (GFR) estimation in non- AmericanOrdered By: Saul Min on 68-14-9181FHR/1.73 sq M.predicted among non-blacks MDRD (S/P/Bld) [Vol rate/Area]59 mL/min/{1.73_m2} Low>=60 mL/min/1.73m 2FKindred Hospital LimaHematocrit Auto (Bld) [Volume fraction]Ordered By: Saul Min on 78-71-4443Bomlmsglvf (Bld) [Volume fraction]45.4 %42.0-54.0[facility] CenterHemoglobin [Mass/volume] in BloodOrdered By: Saul Min on 24-76-2967Fmlszvoiwv (Bld) [Mass/Vol]15.5 g/dL14.0-18.0[facility] CenterLaboratory - Chemistry and Chemistry - challengeOrdered By: Saul Min on 61-19-5395Nkftuwx [Mass/Vol]3.5 g/dL3.4-5.0[facility] CenterALP [Catalytic activity/Vol]71 U/X46-130RmvhevyqlSamaritan North Health CenterALT [Catalytic activity/Vol]28 U/Q86-17FsysmgljaSamaritan North Health CenterAST [Catalytic activity/Vol]25 U/Z80-59NiiyaprroSamaritan North Health CenterBilirubin [Mass/Vol]0.7 mg/dL0.2-1.0[facility] CenterCalcium [Mass/Vol]8.6 mg/dL 8.5-10.1FKindred Hospital LimaChloride [Moles/Vol]106 mmol/L98-107 [facility] CenterCholesterol [Mass/Vol]205 mg/dLHigh<=200 [facility] CenterCholesterol in HDL [Mass/Vol]49 mg/dL40-60 [facility] CenterComment on above:> or =60 mg/dl - LOW CARDIOVASCULAR RISK<40 mg/dl - HIGH CARDIOVASCULAR RISKCO2 [Moles/Vol]31.3 mmol/L21.0-32.0[facility] CenterCreatinine [Mass/Vol]1.23 mg/dL 0.70-1.30[facility] CenterGFR/1.73 sq M.predicted MDRD (S/P/Bld) [Vol rate/Area]mL/min/{1.73_m2}>=60 mL/min/1.73m 2FKindred Hospital LimaGlucose [Mass/Vol]91 mg/kG77-650SoveutmigSamaritan North Health CenterPotassium [Moles/Vol]4.2 mmol/L3.5-5.1FKindred Hospital LimaProtein [Mass/Vol] 7.6 g/dL6.4-8.2FTriHealth Bethesda Butler Hospitalodium [Moles/Vol]140 mmol/L 136-145[facility] CenterTriglyceride [Mass/Vol]69 mg/dL<=150 [facility] CenterTSH Qn1.700 m[IU]/L0.358-3.740[facility] CenterUrea nitrogen [Mass/Vol]17.0 mg/dL7.0-18.0[facility] CenterUrea nitrogen/Creatinine [Mass ratio]13.8 mg/mgSamaritan North Health CenterBilirubin Ql (U)NegativeNEGATIVESamaritan North Health CenterGlucose (U) [Mass/Vol]NegativeNEGATIVESamaritan North Health CenterKetones Ql (U)NegativeNEGATIVESamaritan North Health CenterpH (U)6.0 [pH]5.0-9.0White Hospitalpecific gravity (U) [Rel density] 1.0151.005-1.025[facility] CenterUrobilinogen Qn (U)0.2 {Bruno'U}/dL0.2-1.0[facility] CenterLaboratory - Hematology and Cell countsOrdered By: Saul Min on 33-69-0549Azkefinp granulocytes/100 WBC (Bld)0.1 %0.0-0.5FKindred Hospital LimaLaboratory - Specimen informationOrdered By: Saul Min on 26-97-5540Yyfzxgazjj (U)CLEARCLEAR [facility] CenterColor (U)YELLOWYELLOWSamaritan North Health CenterLaboratory - UrinalysisOrdered By: Saul Min on 63-54-0899Vawdoavlg esterase Test strip Ql (U)NegativeNEGSt. Mary's Medical CenterMucus Ql (Urine sed)NONE SEENNONE SEENSamaritan North Health CenterNitrite Ql (U) NegativeNEGATIVESamaritan North Health CenterProtein Ql (U)NegativeNEG/TRACE [facility] CenterLeukocytes [#/volume] corrected for nucleated erythrocytes in Blood by Automated counOrdered By: Saul Min on 10-45-2652LZC corrected for nucl RBC Auto (Bld) [#/Vol]7.5 10 3/uL4.0-11.0[facility] CenterLymphocytes Auto (Bld) [#/Vol]Ordered By: Saul Min on 64-99-0359Sjewqzzsyma (Bld) [#/Vol]3.0 10 3/uL1.2-3.8[facility] CenterLymphocytes/100 WBC Auto (Bld)Ordered By: Saul Min on 03-01-2025 Lymphocytes/100 WBC (Bld)40.0 %20.5-60.0[facility] Auto (RBC) [Entitic mass]Ordered By: Saul Min on 70-21-6147GVN (RBC) [Entitic mass]30.9 pg25.9-34.0[facility] Auto (RBC) [Mass/Vol]Ordered By: Saul Min on 49-73-0223ARQT (RBC) [Mass/Vol]34.1 g/dL 29.9-35.2FKindred Hospital LimaMCV Auto (RBC) [Entitic vol]Ordered By: Saul Min on 04-68-6506IUG (RBC) [Entitic vol]90.6 fL80.0-94.0[facility] CenterMonocytes Auto (Bld) [#/Vol]Ordered By: Saul Min on 66-93-9807Svbfxjvns (Bld) [#/Vol]0.6 10 3/uL0.3-0.8[facility] CenterMonocytes/100 WBC Auto (Bld)Ordered By: Saul Min on 03-01-2025 Monocytes/100 WBC (Bld)7.5 %1.7-12.0[facility] CenterNeutrophils Auto (Bld) [#/Vol]Ordered By: Saul Min on 92-60-4579Jjopttktvfd (Bld) [#/Vol]3.6 10 3/uL1.4-6.5FKindred Hospital LimaNeutrophils/100 WBC Auto (Bld)Ordered By: Saul Min on 10-01-4808Czwxsndljzz/100 WBC (Bld)48.3 % 43.0-75.0[facility] CenterNo Panel InformationOrdered By: Saul Min on 51-88-2682Wvzdtrailzb # (Auto)0.2 10 3/uL0.0-0.7FKindred Hospital LimaFree Prostate Specific Antigen0.35 ng/mLN/AFKindred Hospital LimaComment on above:Scottie ECLIA methodology.Immature Granulocyte # (Auto)0.01 10 3/uL0.00-0.03[facility] CenterProstate Specific Antigen Total1.2 ng/mL0.0-4.0[facility] CenterComment on above: Scottie ECLIA methodology.According to the [place] [employer], Serum PSAshould decrease and remain at undetectable levels afterradical prostatectomy. The AUA defines biochemicalrecurrence as an initial PSA value 0.2 ng/mL or greaterfollowed by a subsequent confirmatory PSA value 0.2 ng/mLor greater. Values obtained with different assay methods orkits cannot be used interchangeably. Results cannot beinterpreted as absolute evidence of the presence or absenceof malignant disease.Urine BacteriaNONE SEEN #/HPFNONE SEEN [facility] CenterUrine Occult BloodNegativeNEGATIVESamaritan North Health CenterUrine Other CastsNONE SEEN #/LPFNONE SEENSamaritan North Health CenterUrine Other CrystalsNone Seen #/HPFNone SeenSamaritan North Health CenterUrine RBC0-2 #/HPF0-2FKindred Hospital Lima Urine Squamous Epithelial CellsNONE SEEN #/LPFNONE/RARESamaritan North Health CenterUrine WBCNONE SEEN #/HPFNONE [facility] Platelet mean volume Auto (Bld) [Entitic vol]Ordered By: Saul Min on 95-33-4226Flzqttmo mean volume (Bld) [Entitic vol]9.2 fLLow9.5-13.5FKindred Hospital LimaPlatelets Auto (Bld) [#/Vol]Ordered By: Saul Min on 07-12-8897Hornvqpcb (Bld) [#/Vol]188 10 3/lG556-588CurdolmraSamaritan North Health CenterRBC Auto (Bld) [#/Vol]Ordered By: Saul Min on 67-00-2208BEV (Bld) [#/Vol]5.01 10 6/uL4.70-6.10White Hospitalerum or plasma albumin/globulin mass ratioOrdered By: Saul Min on 03-01-2025 Albumin/Globulin [Mass ratio]0.9 {ratio}White Hospitalerum or plasma anion gap determinationOrdered By: Saul Min on 41-75-4004Dzgch gap [Moles/Vol]6.9 mmol/LFTriHealth Bethesda Butler Hospitalerum or plasma free prostate specific antigen (PSA)/total PSA ratioOrdered By: Saul Min on 26-93-7360Qhlp PSA/Total PSA [Mass fraction]29.2 %.[facility] CenterComment on above:The table below lists the probability of prostate cancer formen with non-suspicious YESSICA results andtotal PSA between4 and 10 ng/mL, by patient age (Danyell et al, ALFONZO 1998,279:1542). % Free PSA 50-64 yr 65-75 yr 0.00-10.00% 56% 55% 10.01-15.00% 24% 35% 15.01-20.00% 17% 23% 20.01-25.00% 10% 20% >25.00% 5% 9%Please note: Danyell et al did not make specific recommendations regarding the use of percent free PSA for any other population of men.Performed at: - [facility] [id number] Director: Isaac Ulrich PhD, Phone: [phone] or plasma total cholesterol/high density lipoprotein (HDL) cholesterol mass ratOrdered By: Saul Min on 68-25-6639Aykkxthgfyn.total/Cholesterol in HDL [Mass ratio]4.2 {ratio}[facility] CenterComment on above:3.3 - 4.4 LOW RISK4.4 - 7.1 AVERAGE RISK7.1 - 11.0 MODERATE RISK>11.0 HIGH RISKUrine Cultureon 43-72-0230Xfnvjlpc identified Cx Nom (U)No Growth 2 Days PERFORMED BY: [place] [address] PATHOLOGIST ANIMATOR KYM MOLINA M.D.[facility] Florida Physician GroupComment on above: Performed By: #### CUU #### [address] StreetAlanine aminotransferase [Enzymatic activity/volume] in Serum or PlasmaOrdered By: Saul Min on 19-44-3211JAL [Catalytic activity/Vol]23 U/L[address] [place], [place] [address]ALT [Catalytic activity/Vol]Alanine aminotransferase [Enzymatic activity/volume] in Serum or PlasmaSamaritan North Health CenterAlbumin [Mass/volume] in Serum or Plasma by Bromocresol green (BCG) dye binding methoOrdered By: Saul Min on 96-10-7968Tljbmzf BCG dye [Mass/Vol]3.8 g/dL3.5-5.7FKindred Hospital LimaAlbumin BCG dye [Mass/Vol]Albumin [Mass/volume] in Serum or Plasma by Bromocresol green (BCG) dye binding metho3.5-5.7FKindred Hospital LimaAlkaline phosphatase [Enzymatic activity/volume] in Serum or PlasmaOrdered By: Saul Min on 28-37-9287XTV [Catalytic activity/Vol]57 U/G63-293KyekpmzbeSamaritan North Health CenterALP [Catalytic activity/Vol]Alkaline phosphatase [Enzymatic activity/volume] in Serum or Cqvtwi96-144SbjraycrmSamaritan North Health CenterAppearance of UrineOrdered By: Saul Mni on 12-15-9010Xvviflfkfq (U) Urine appearanceClearFKindred Hospital LimaAspartate aminotransferase [Enzymatic activity/volume] in Serum or PlasmaOrdered By: Saul Min on 76-07-3539DGC [Catalytic activity/Vol]22 U/Q49-13TvhkyyeqgSamaritan North Health CenterAST [Catalytic activity/Vol]Aspartate aminotransferase [Enzymatic activity/volume] in Serum or Oamskn39-25DsfhvtlrrSamaritan North Health Center Bacteria [Presence] in Urine by AutomatedOrdered By: Saul Min on 02-28-2024 Bacteria Auto Ql (U)None seen [HPF]None [facility] Bacteria Auto Ql (U)Bacteria [Presence] in Urine by AutomatedNone [facility] HospitalBasophils Auto (Bld) [#/Vol]Ordered By: Saul Min on 40-79-3216Feanebxfp (Bld) [#/Vol]0.1 10*3/uL0.0-0.2FKindred Hospital LimaBasophils (Bld) [#/Vol]Automated basophil count0.0-0.2FKindred Hospital LimaBasophils/100 WBC Auto (Bld)Ordered By: Saul Min on 02-28-2024 Basophils/100 WBC (Bld)0.9 %.[facility] CenterBasophils/100 WBC (Bld)Automated basophil %.[facility] CenterBilirubin Test strip Ql (U)Ordered By: Saul Min on 99-55-3078Lubcwdmaz Ql (U)NegativeNegative [facility] CenterBilirubin Ql (U)Bilirubin.total [Presence] in Urine by Test stripNegativeSamaritan North Health CenterBilirubin.total [Mass/volume] in Serum or PlasmaOrdered By: Saul Min on 32-09-4560Almbuhjfo [Mass/Vol]0.7 mg/dL0.3-1.0[facility] CenterBilirubin [Mass/Vol] Bilirubin.total [Mass/volume] in Serum or Plasma0.3-1.0[facility] CenterCalcium [Mass/volume] in Serum or PlasmaOrdered By: Saul Min on 57-17-0069Bcmfwsg [Mass/Vol]8.7 mg/dL8.6-10.3FKindred Hospital LimaCalcium [Mass/Vol]Calcium [Mass/volume] in Serum or Plasma8.6-10.3 [facility] CenterCarbon dioxide, total [Moles/volume] in Serum or PlasmaOrdered By: Saul Min on 84-18-6907BU2 [Moles/Vol]30.8 mmol/L 21.0-31.0[facility] CenterCO2 [Moles/Vol]Carbon dioxide, total [Moles/volume] in Serum or Avqohl35.0-31.0[facility] Chloride [Moles/volume] in Serum or PlasmaOrdered By: Saul Min on 02-28-2024 Chloride [Moles/Vol]104 mmol/D57-953DnydladtkSamaritan North Health CenterChloride [Moles/Vol]Chloride [Moles/volume] in Serum or Wqkkdm51-177AuwkkhrunSamaritan North Health CenterCholesterol [Mass/volume] in Serum or PlasmaOrdered By: Saul Min on 32-79-5421Plijgqbrtps [Mass/Vol]188 mg/iE255-665YqqxznoxiSamaritan North Health CenterComment on above:Chol less than 200 mg/dl low riskChol 201-239 mg/dl borderline riskChol 240 mg/dl and greater high riskCholesterol [Mass/Vol] Cholesterol [Mass/volume] in Serum or Sqfpys998-331DnssqhxwuSamaritan North Health CenterComment on above:Chol less than 200 mg/dl low riskChol 201-239 mg/dl borderline riskChol 240 mg/dl and greater high riskCholesterol in HDL [Mass/volume] in Serum or PlasmaOrdered By: Saul Min on 02-28-2024 Cholesterol in HDL [Mass/Vol]Serum or plasma high density lipoprotein (HDL) cholesterol lejkoieofmi55-18ZhfsawivjSamaritan North Health CenterComment on above: HDL CHOL ATP-III CLASSIFICATION Cardiovascular RiskHDL > or equal to 60 mg/dL LOWHDL < 40 mg/dL HIGHCholesterol in LDL Calc [Mass/Vol]Ordered By: Saul Min on 48-31-4298Vgtdbggenaq in LDL [Mass/Vol]134 mg/dLHigh0-100[facility] CenterComment on above:LDL ATP III CLASSIFICATIONLDL less than 100 mg/dL OptimalLDL 100-129 mg/dL Near or above tffpobqDGM253-707 mg/dL Borderline highLDL 160-189 mg/dL HighLDL greater than 189 mg/dL Very highCholesterol in LDL [Mass/Vol]Cholesterol in LDL [Mass/volume] in Serum or Plasma by calculation High0-100[facility] CenterComment on above:LDL ATP III CLASSIFICATIONLDL less than 100 mg/dL OptimalLDL 100-129 mg/dL Near or above mibfcadRCR691-386 mg/dL Borderline highLDL 160-189 mg/dL HighLDL greater than 189 mg/dL Very highCholesterol in VLDL Calc [Mass/Vol]Ordered By: Saul Min on 43-22-8389Foybgihhkkf in VLDL [Mass/Vol]17 mg/dLSamaritan North Health CenterCholesterol in VLDL [Mass/Vol]Cholesterol in VLDL [Mass/volume] in Serum or Plasma by calculationSamaritan North Health CenterColor Auto (U)Ordered By: Saul Min on 68-74-4245Tssnm (U)Light-yellowPremier Health Miami Valley HospitalColor (U)Color of Urine by AutoYelFayette County Memorial HospitalCreatinine [Mass/volume] in Serum or PlasmaOrdered By: Saul Min on 33-69-7445Pnrvkzdcly [Mass/Vol]1.30 mg/dL0.70-1.30[facility] CenterCreatinine [Mass/Vol]Creatinine [Mass/volume] in Serum or Plasma0.70-1.30 [facility] CenterEosinophils Auto (Bld) [#/Vol]Ordered By: Saul Min on 80-88-7750Ewzzowxfjfe (Bld) [#/Vol]0.3 10*3/uL0.0-0.45[facility] CenterEosinophils (Bld) [#/Vol]Automated eosinophil count 0.0-0.45[facility] CenterEosinophils/100 WBC Auto (Bld)Ordered By: Saul Min on 73-00-6259Rhlaaowqwgi/100 WBC (Bld)3.4 %.[facility] CenterEosinophils/100 WBC (Bld)Automated eosinophil %.[facility] CenterEpithelial cells.squamous [#/area] in Urine sediment by Automated countOrdered By: Saul Min on 75-68-0830Wfgvhcfnln cells.squamous Auto (Urine sed) [#/Area]N/AFKindred Hospital LimaEpithelial cells.squamous Auto (Urine sed) [#/Area]Epithelial cells.squamous [#/area] in Urine sediment by Automated countSamaritan North Health CenterErythrocyte distribution width Auto (RBC) [Ratio]Ordered By: Saul Min on 02-28-2024 Erythrocyte distribution width (RBC) [Ratio]13.9 %12.0-14.8[facility] CenterErythrocyte distribution width (RBC) [Ratio]Erythrocyte distribution width [Ratio] by Automated count12.0-14.8[facility] CenterErythrocytes [#/area] in Urine sediment by Automated countOrdered By: Saul Min on 50-22-7385XLY Auto (Urine sed) [#/Area]1-2 [HPF]0-4FKindred Hospital LimaRBC Auto (Urine sed) [#/Area]Erythrocytes [#/area] in Urine sediment by Automated count0-4FKindred Hospital LimaGlobulin Calc (S) [Mass/Vol]Ordered By: Saul Min on 14-36-9593Thqffcjr (S) [Mass/Vol] 2.8 g/dLSamaritan North Health CenterGlobulin (S) [Mass/Vol]Serum globulin measurement by calculation (mass/volume)[facility] CenterGlucose [Mass/volume] in Serum or PlasmaOrdered By: Saul Min on 30-66-2351Themevx [Mass/Vol]84 mg/nL03-977XitautzeuSamaritan North Health CenterComment on above:ADA recommended reference rangeRandom Glucose Reference Range is dependent on time and content of last meal. Glucose of more than 200 mg/dL in a nonstressed, ambulatory subject supports the diagnosisof Diabetes Mellitus.Glucose [Mass/Vol] Glucose [Mass/volume] in Serum or Omnyqn13-334PjewvtqsdSamaritan North Health Center Comment on above:ADA recommended reference rangeRandom Glucose Reference Range is dependent on time and content of last meal. Glucose of more than 200 mg/dL in a nonstressed, ambulatory subject supports the diagnosisof Diabetes Mellitus. Glucose [Mass/volume] in Urine by Test stripOrdered By: Saul Min on 75-43-5367Ysfxdau Test strip (U) [Mass/Vol]Normal mg/dLNoFayette County Memorial HospitalGlucose Test strip (U) [Mass/Vol]Glucose [Mass/volume] in Urine by Test stripNoFayette County Memorial HospitalHematocrit Auto (Bld) [Volume fraction]Ordered By: Saul Min on 63-59-5664Speavvbvab (Bld) [Volume fraction]42.2 %38.8-50.0[facility] CenterHematocrit (Bld) [Volume fraction]Hematocrit [Volume Fraction] of Blood by Automated count 38.8-50.0[facility] CenterHemoglobin Test strip Ql (U)Ordered By: Saul Min on 46-27-2366Uebtjmklnp Ql (U)NegativeNegativeSamaritan North Health CenterHemoglobin Ql (U)Hemoglobin [Presence] in Urine by Test stripNegativeSamaritan North Health CenterHemoglobin [Mass/volume] in Blood Ordered By: Saul Min on 01-08-6904Fmplmcakss (Bld) [Mass/Vol]14.6 g/dL 13.0-17.0[facility] CenterHemoglobin (Bld) [Mass/Vol]Hemoglobin [Mass/volume] in Blood13.0-17.0[facility] CenterHyaline casts [#/area] in Urine sediment by Automated countOrdered By: Saul Min on 58-57-6928Oveintm casts Auto (Urine sed) [#/Area]None [LPF]0-8[facility] CenterHyaline casts Auto (Urine sed) [#/Area]Hyaline casts [#/area] in Urine sediment by Automated count0-8[facility] CenterKetones Test strip Ql (U)Ordered By: Saul Min on 26-02-1767Klmlvaa Ql (U)Negative NegativeSamaritan North Health CenterKetones Ql (U)Ketones [Presence] in Urine by Test stripNegativeSamaritan North Health CenterLaboratory - Microbiology and Antimicrobial susceptibilityOrdered By: Saul Min on 12-75-9407Vlknpinm identified Cx Nom (U)No Growth 2 DaysSamaritan North Health CenterLeukocyte esterase [Presence] in Urine by Test stripOrdered By: Saul Min on 56-69-6274Ecxffjfbq esterase Test strip Ql (U)NegativeNegative [facility] CenterLeukocyte esterase Test strip Ql (U)Leukocyte esterase [Presence] in Urine by Test stripNegativeSamaritan North Health CenterLeukocytes [#/area] in Urine sediment by Automated countOrdered By: Saul Min on 58-86-7859GKD Auto (Urine sed) [#/Area]1-2 [HPF]0-4FKindred Hospital LimaWBC Auto (Urine sed) [#/Area]Leukocytes [#/area] in Urine sediment by Automated count0-4FKindred Hospital LimaLeukocytes [#/volume] corrected for nucleated erythrocytes in Blood by Automated counOrdered By: Saul Min on 90-62-3425RNG corrected for nucl RBC Auto (Bld) [#/Vol]7.4 10*3/uL 4.1-10.5FKindred Hospital LimaWBC corrected for nucl RBC Auto (Bld) [#/Vol]Leukocytes [#/volume] corrected for nucleated erythrocytes in Blood by Automated coun4.1-10.5FKindred Hospital LimaLymphocytes Auto (Bld) [#/Vol]Ordered By: Saul Min on 40-39-4510Tlruqgtkdqs (Bld) [#/Vol]3.0 10*3/uL1.00-4.8[facility] CenterLymphocytes (Bld) [#/Vol] Lymphocytes [#/volume] in Blood by Automated count1.00-4.8[facility] CenterLymphocytes/100 WBC Auto (Bld)Ordered By: Saul Min on 49-65-3482Eernlofxnxh/100 WBC (Bld)40.0 %.[facility] Lymphocytes/100 WBC (Bld)Lymphocytes/100 leukocytes in Blood by Automated count. [facility] Auto (RBC) [Entitic mass]Ordered By: Saul Min on 66-20-8682UYP (RBC) [Entitic mass]31.0 pg27.5-35.2FSelect Medical Specialty Hospital - Boardman, Inc (RBC) [Entitic mass]MCH [Entitic mass] by Automated count 27.5-35.2FOur Lady of Mercy HospitalHC Auto (RBC) [Mass/Vol]Ordered By: Saul Min on 23-75-7846HTRF (RBC) [Mass/Vol]34.5 g/dL32.5-35.6FMercy Health St. [facility] (RBC) [Mass/Vol]MCHC [Mass/volume] by Automated count32.5-35.6FAshtabula General Hospital Auto (RBC) [Entitic vol] Ordered By: Saul Min on 35-23-1592NDR (RBC) [Entitic vol]89.7 fL83.5-101 [facility] SpringfieldV (RBC) [Entitic vol]MCV [Entitic volume] by Automated count83.5-101[facility] CenterMonocytes Auto (Bld) [#/Vol]Ordered By: Saul Min on 96-76-6473Jqteksltz (Bld) [#/Vol]0.6 10*3/uL 0.0-0.8[facility] CenterMonocytes (Bld) [#/Vol]Automated blood monocyte count0.0-0.8[facility] CenterMonocytes/100 WBC Auto (Bld)Ordered By: Saul Min on 97-50-4166Wqwsedqgo/100 WBC (Bld)8.7 %. [facility] CenterMonocytes/100 WBC (Bld)Automated monocyte %. [facility] CenterNeutrophils Auto (Bld) [#/Vol]Ordered By: Saul Min on 48-22-1715Xrohvkrxpvq (Bld) [#/Vol]3.5 10*3/uL1.8-7.7FKindred Hospital LimaNeutrophils (Bld) [#/Vol]Neutrophils [#/volume] in Blood by Automated count1.8-7.7Fire[facility] Regional Medical CenterNeutrophils/100 WBC Auto (Bld)Ordered By: Saul Min on 02-33-1154Kaxtggtmwtr/100 WBC (Bld)47.0 %. [facility] CenterNeutrophils/100 WBC (Bld)Automated neutrophil % .[facility] CenterNitrite Test strip Ql (U)Ordered By: Saul Min on 89-19-7792Kevglcy Ql (U)NegativeNegativeSamaritan North Health CenterNitrite Ql (U)Nitrite [Presence] in Urine by Test stripNegativeSamaritan North Health CenterNo Panel InformationOrdered By: Saul Min on 43-87-5274Aydwomzja GFR (CKD-EPI)> 60.0 mL/MinSamaritan North Health Center Pharmacy Creatinine Clearance (ChemN/AFKindred Hospital LimaNucleated erythrocytes [Presence] in Blood by Automated countOrdered By: Saul Min on 01-03-0723Bteaiwoha RBC Auto Ql (Bld)0.3 /100{WBC}0-0.5FKindred Hospital LimaNucleated RBC Auto Ql (Bld)Nucleated erythrocytes [Presence] in Blood by Automated count0-0.5FKindred Hospital LimaPlatelet mean volume Auto (Bld) [Entitic vol]Ordered By: Saul Min on 22-78-3044Ivsxpjvn mean volume (Bld) [Entitic vol]7.5 fL6.6-10.1FKindred Hospital Lima Platelet mean volume (Bld) [Entitic vol]Platelet mean volume [Entitic volume] in Blood by Automated count6.6-10.1FKindred Hospital LimaPlatelets Auto (Bld) [#/Vol]Ordered By: Saul Min on 80-40-1528Xzcuztava (Bld) [#/Vol]180 10*3/cX859-593PhevojwmsSamaritan North Health CenterPlatelets (Bld) [#/Vol]Platelets [#/volume] in Blood by Automated -486JszijmmreSamaritan North Health Center Potassium [Moles/volume] in Serum or PlasmaOrdered By: Saul Min on 77-78-2623Jlymeddri [Moles/Vol]4.4 mmol/L3.5-5.1FKindred Hospital LimaPotassium [Moles/Vol]Potassium [Moles/volume] in Serum or Plasma3.5-5.1 [facility] CenterProstate specific Ag [Mass/volume] in Serum or PlasmaOrdered By: Saul Min on 16-51-3031Eeaxaprs specific Ag [Mass/Vol]1.880 ng/mL0.000-4.000[facility] CenterComment on above:Serial tumor marker results determined by assays using different manufacturers or methods may not be comparable.[facility] laborer cheesemaking and method:Bit Cauldron DXI, CHEMILUMINESCENT IMMUNOASSAY.Prostate specific Ag [Mass/Vol]Prostate specific Ag [Mass/volume] in Serum or Plasma0.000-4.000[facility] CenterComment on above:Serial tumor marker results determined by assays using different manufacturers or methods may not be comparable.[facility] laborer cheesemaking and method:[employer] Cauldron DXI, CHEMILUMINESCENT IMMUNO ASSAY.Protein Test strip (U) [Mass/Vol]Ordered By: Saul Min on 02-28-2024 Protein (U) [Mass/Vol]NegativeNegativeSamaritan North Health CenterProtein (U) [Mass/Vol]Protein [Mass/volume] in Urine by Test stripNegativeSamaritan North Health CenterProtein [Mass/volume] in Serum or PlasmaOrdered By: Saul Min on 05-14-7508Izbvvlr [Mass/Vol]6.6 g/dL6.4-8.9[facility] CenterProtein [Mass/Vol]Protein [Mass/volume] in Serum or Plasma6.4-8.9 [facility] CenterRB Auto (Bld) [#/Vol]Ordered By: Saul Min on 31-39-4530JHJ (Bld) [#/Vol]4.71 10*6/uL3.90-5.60[facility] CenterRBC (Bld) [#/Vol]Erythrocytes [#/volume] in Blood by Automated count 3.90-5.60White Hospitalerum or plasma albumin/globulin mass ratioOrdered By: Saul Min on 80-46-8211Dnvgfyz/Globulin [Mass ratio]1.4 {ratio}[facility] CenterAlbumin/Globulin [Mass ratio]Serum or plasma albumin/globulin mass ratioWhite Hospitalerum or plasma anion gap determinationOrdered By: Saul Min on 90-55-9742Fuehh gap [Moles/Vol]8.6 mmol/L6.0-15.0[facility] CenterAnion gap [Moles/Vol]Serum or plasma anion gap determination6.0-15.0White Hospitalerum or plasma high density lipoprotein (HDL) cholesterol measurementOrdered By: Saul Min on 70-48-4057Urtutzoaxbv in HDL [Mass/Vol]36 mg/sA32-12YpcntjxdaSamaritan North Health CenterComment on above:HDL CHOL ATP-III CLASSIFICATION Cardiovascular RiskHDL > or equal to 60 mg/dL LOWHDL < 40 mg/dL HIGHSerum or plasma total cholesterol/high density lipoprotein (HDL) cholesterol mass ratOrdered By: Saul Min on 55-44-4104Uyhmyfxngfo.total/Cholesterol in HDL [Mass ratio]5.2 {ratio}<5.0[facility] Cholesterol.total/Cholesterol in HDL [Mass ratio]Serum or plasma total cholesterol/high density lipoprotein (HDL) cholesterol mass rat<5.0White Hospitalodium [Moles/volume] in Serum or PlasmaOrdered By: Saul Min on 28-44-0737Ktpvxz [Moles/Vol]139 mmol/N796-331YcrkqheatWhite Hospitalodium [Moles/Vol]Sodium [Moles/volume] in Serum or Zvudmg340-107 White Hospitalpecific gravity Test strip (U) [Rel density] Ordered By: Saul Min on 28-77-8915Hqrwxcbd gravity (U) [Rel density]1.014 1.001-1.030White Hospitalpecific gravity (U) [Rel density] Specific gravity of Urine by Test strip1.001-1.030[facility] CenterThyrotropin [Units/volume] in Serum or PlasmaOrdered By: Saul Min on 16-02-1326OFD Qn2.04 m[IU]/L0.45-5.33[facility] CenterTSH Qn Thyrotropin [Units/volume] in Serum or Plasma0.45-5.33[facility] CenterTriglyceride [Mass/volume] in Serum or PlasmaOrdered By: Saul Min on 75-47-0563Ylmmypdnlzka [Mass/Vol]89 mg/dL0-149[facility] Comment on above:TRIG ATP III CLASSIFICATIONTRIG less than 150 mg/dL NormalTRIG 150-199 mg/dL Borderline highTRIG 200-500 mg/dL High TRIG greater than 500 mg/dL Very highStandard traceable to the Center for Disease Conrtrol and Prevention (CDC) test method.Triglyceride [Mass/Vol]Triglyceride [Mass/volume] in Serum or Plasma0[facility] CenterComment on above:TRIG ATP III CLASSIFICATIONTRIG less than 150 mg/dL NormalTRIG 150-199 mg/dL Borderline highTRIG 200-500 mg/dL High TRIG greater than 500 mg/dL Very highStandard traceable to the Center for Disease Conrtrol and Prevention (CDC) test method. Urea nitrogen [Mass/volume] in Serum or PlasmaOrdered By: Saul Min on 45-31-8783Ywwk nitrogen [Mass/Vol]18 mg/dL12-11[facility] Urea nitrogen [Mass/Vol]Urea nitrogen [Mass/volume] in Serum or Plasma12-11 [facility] CenterUrine appearanceOrdered By: Saul Min on 63-31-0167Hwpfygzkoo (U)ClearCleCleveland Clinic FoundationUrine culture Ordered By: Saul Min on 67-64-6572Llkspafz identified Cx Nom (U)Urine cultureSamaritan North Health CenterUrobilinogen Test strip (U) [Mass/Vol] Ordered By: Saul Min on 16-24-9418Biqvqvnzljuw (U) [Mass/Vol]Normal mg/dL NormalSamaritan North Health CenterUrobilinogen (U) [Mass/Vol]Urobilinogen [Mass/volume] in Urine by Test stripNormalSamaritan North Health CenterWBC Auto (Bld) [#/Vol]Ordered By: Saul Min on 01-98-8067HQA (Bld) [#/Vol]7.4 10*3/uL4.1-10.5FKindred Hospital LimaWBC (Bld) [#/Vol]Leukocytes [#/volume] in Blood by Automated count4.1-10.5FKindred Hospital Lima pH Test strip (U)Ordered By: Saul Min on 12-15-7418wK (U)6.0 [pH]5.0-9.0 [facility] CenterpH (U)pH of Urine by Test strip5.0-9.0[facility] CenterMR KNEE LEFT WO IV CONTRASTon 59-54-5419YS KNEE LEFT WO IV CONTRASTEXAMINATION: MR KNEE LEFT WO IV CONTRAST HISTORY: r/o internal derangment TECHNIQUE: Routine non-contrast MRI of the knee, LEFT COMPARISON: None RESULT: MENISCI: Medial Meniscus: Essentially complete radial tear at the posterior root. Horizontal tearing versus degenerative signal involving the posterior horn and body. Portion of the meniscus protruding towardthe medial gutter. Lateral Meniscus: Intact LIGAMENTS: ACL, [...] in the patellofemoral compartment. ELECTRONICALLY SIGNED BY: Marian JimenezNot AvailableD-DIMERon [id number]-DIMERsee noteNortPenn State Health [facility] Other [phone]-ADOCO87.95 mg/L FEUCritically high<=0.59 mg/L FEU [facility] [place] Other Alanine aminotransferase [Enzymatic activity/volume] in Serum or PlasmaOrdered By: [employer] on 30-47-8906AKI [Catalytic activity/Vol]14 U/L7-52[facility] CenterAlbumin [Mass/volume] in Serum or Plasma by Bromocresol green (BCG) dye binding methoOrdered By: [facility] on 58-91-1305Wriftao BCG dye [Mass/Vol]4.0 g/dL3.5-5.7 [facility] CenterAlkaline phosphatase [Enzymatic activity/volume] in Serum or PlasmaOrdered By: [facility] on 02-02-2023 ALP [Catalytic activity/Vol]63 U/F80-358TrbfhvymtSamaritan North Health Center Aspartate aminotransferase [Enzymatic activity/volume] in Serum or PlasmaOrdered By: [facility] [employer] on 11-60-8454SLP [Catalytic activity/Vol]16 U/L13-39 [facility] CenterBilirubin.total [Mass/volume] in Serum or PlasmaOrdered By: [facility] [employer] on 92-16-9690Xfrfurbao [Mass/Vol]0.6 mg/dL 0.3-1.0[facility] CenterCalcium [Mass/volume] in Serum or Plasma Ordered By: [employer] on 23-86-6330Drzjnuy [Mass/Vol]8.9 mg/dL8.6-10.3 [facility] CenterCarbon dioxide, total [Moles/volume] in Serum or PlasmaOrdered By: [facility] on 47-45-6181TH4 [Moles/Vol]31.9 mmol/L 21.0-31.0[facility] CenterChloride [Moles/volume] in Serum or PlasmaOrdered By: [facility] on 81-24-2197Jnnbcrpb [Moles/Vol]104 mmol/L 98-107[facility] CenterCholesterol [Mass/volume] in Serum or PlasmaOrdered By: [employer] on 29-00-4197Jpixxfecfau [Mass/Vol]195 mg/sF219-194KjoqplfftSamaritan North Health CenterComment on above:Chol less than 200 mg/dl low riskChol 201-239 mg/dl borderline riskChol 240 mg/dl and greater high riskCholesterol in LDL Calc [Mass/Vol]Ordered By: [facility] [employer] on 14-07-8473Jdizhwcyuqx in LDL [Mass/Vol]131 mg/dL0-100[facility] CenterComment on above:LDL ATP III CLASSIFICATIONLDL less than 100 mg/dL OptimalLDL 100-129 mg/dL Near or above ebesexfUTT909-281 mg/dL Borderline highLDL 160-189 mg/dL HighLDL greater than 189 mg/dL Very highCholesterol in VLDL Calc [Mass/Vol]Ordered By: [employer] on 28-65-7783Fqivjugmuow in VLDL [Mass/Vol]21 mg/dLSamaritan North Health CenterCreatinine [Mass/volume] in Serum or PlasmaOrdered By: [facility] on 57-99-4783Lsmsfqbtob [Mass/Vol]1.17 mg/dL0.70-1.30[facility] CenterErythrocyte distribution width Auto (RBC) [Ratio]Ordered By: [facility] on 19-98-1600Wjgdibovbzl distribution width (RBC) [Ratio]14.0 %12.0-14.8[facility] CenterGlucose [Mass/volume] in Serum or PlasmaOrdered By: [facility] on 82-26-9402Latedgo [Mass/Vol]83 mg/gF68-633HvzctuywdSamaritan North Health CenterComment on above:ADA recommended reference rangeRandom Glucose Reference Range is dependent on time and content of last meal. Glucose of more than 200 mg/dL in a nonstressed, ambulatory subject supports the diagnosisof Diabetes Mellitus.Hematocrit Auto (Bld) [Volume fraction]Ordered By: [facility] on 52-33-0379Xymjrrbwfw (Bld) [Volume fraction]43.1 % 38.8-50.0[facility] CenterHemoglobin [Mass/volume] in Blood Ordered By: [facility] on 19-35-5554Yxnfrslfil (Bld) [Mass/Vol]14.8 g/dL 13.0-17.0[facility] CenterLeukocytes [#/volume] corrected for nucleated erythrocytes in Blood by Automated counOrdered By: [facility] on 44-17-4319AWI corrected for nucl RBC Auto (Bld) [#/Vol]7.2 10*3/uL4.1-10.5 [facility] Auto (RBC) [Entitic mass]Ordered By: [facility] on 59-94-5336IQB (RBC) [Entitic mass]31.0 pg27.5-35.2 [facility] SpringfieldHC Auto (RBC) [Mass/Vol]Ordered By: [facility] on 43-12-7342MBVH (RBC) [Mass/Vol]34.4 g/dL32.5-35.6FKindred Hospital LimaMCV Auto (RBC) [Entitic vol]Ordered By: [facility] on 26-64-1967GHI (RBC) [Entitic vol]90.1 fL83.5-101[facility] CenterNo Panel InformationOrdered By: [facility] on 75-94-8645Puocxrikb GFR (CKD-EPI)> 60.0 mL/MinSamaritan North Health CenterPharmacy Creatinine Clearance (ChemN/AFKindred Hospital LimaPlatelet mean volume Auto (Bld) [Entitic vol]Ordered By: [employer] [employer] on 00-12-0600Xdbpyavv mean volume (Bld) [Entitic vol]7.5 fL6.6-10.1FKindred Hospital Lima Platelets Auto (Bld) [#/Vol]Ordered By: [facility] on 02-02-2023 Platelets (Bld) [#/Vol]178 10*3/rA196-973KtfqlpktrSamaritan North Health Center Potassium [Moles/volume] in Serum or PlasmaOrdered By: [facility] on 02-29-2570Kbgaoiunt [Moles/Vol]4.0 mmol/L3.5-5.1FKindred Hospital LimaProstate specific Ag [Mass/volume] in Serum or PlasmaOrdered By: [facility] on 01-75-6460Gprwktqa specific Ag [Mass/Vol]1.110 ng/mL0.000-4.000 [facility] CenterProtein [Mass/volume] in Serum or PlasmaOrdered By: [facility] on 20-51-7414Jstfvlr [Mass/Vol]7.0 g/dL6.4-8.9[facility] CenterRBC Auto (Bld) [#/Vol]Ordered By: [facility] on 21-02-2913FEC (Bld) [#/Vol]4.79 10*6/uL3.90-5.60White Hospitalerum or plasma anion gap determinationOrdered By: [facility] on 55-89-9599Cvibi gap [Moles/Vol]9.1 mmol/L6.0-15.0White Hospitalerum or plasma high density lipoprotein (HDL) cholesterol measurement Ordered By: [facility] on 18-04-5426Zikkfzledcn in HDL [Mass/Vol]43 mg/aZ56-86PjqyzbjjkSamaritan North Health CenterComment on above:HDL CHOL ATP-III CLASSIFICATION Cardiovascular RiskHDL > or equal to 60 mg/dL LOWHDL < 40 mg/dL HIGHSerum or plasma total cholesterol/high density lipoprotein (HDL) cholesterol mass ratOrdered By: [facility] on 02-02-2023 Cholesterol.total/Cholesterol in HDL [Mass ratio]4.5 {ratio}<5.0White Hospitalodium [Moles/volume] in Serum or PlasmaOrdered By: [facility] on 54-16-6301Nhjodq [Moles/Vol]141 mmol/F806-931JhvmdgolfSamaritan North Health CenterTriglyceride [Mass/volume] in Serum or PlasmaOrdered By: [facility] on 52-17-3293Ezjqwucyvsau [Mass/Vol]105 mg/dL0-149[facility] CenterComment on above:TRIG ATP III CLASSIFICATIONTRIG less than 150 mg/dL NormalTRIG 150-199 mg/dL Borderline highTRIG 200-500 mg/dL High TRIG greater than 500 mg/dL Very highStandard traceable to the Center for Disease Conrtrol and Prevention (CDC) test method.Urea nitrogen [Mass/volume] in Serum or PlasmaOrdered By: [facility] on 60-24-5385Ekps nitrogen [Mass/Vol]22 mg/dL7-25[facility] CenterCovid-19 PCR (CVDTBH)on 13-20-7780VIIX-CoV-2 (COVID-19) RNA GONZALES+probe Ql (Unsp spec)DetectedCritically abnormalNOT DETECTEDThe [facility]ty Hospital - ColumbusComment on above:Result Comment: This test is not yet approved or cleared by the [place] FDA. When there are no FDA-approved or cleared tests available, and other criteria are met, FDA can make tests available under an emergency access mechanism called an Emergency Use Authorization (EUA). The EUA for this test is supported by the Learning And Development Officer of Health and Human Service's (HHS's) declaration [...] which the test may no longer be used).Performed By: #### CVDTBH #### [facility] [address] [place] [address] Dr. Anyi Parker [id number] Visit (GMTAUS) --------ARVIND LEA ([id number]) 1955 MDate Time Provider Department11/13/17 9:00 AM SOREN CURTIS ([facility] GMTAUS During your visit today, we recorded the following information about you:DAVID Sparks 11/13/2017 11:59 AM AddendumGOOD [facility]ARIT[facility] GENOMIC MEDICINE INSTITUTECenter For Personalized Genetic HealthcareConsultation NoteGenetic Counselor: Soren Curtis MS, LGCPatient: Arvind SorianoeMRN: [id number] Name and confirmed at initiation of visitHIGH [...] consultation for genetic counseling and riskassessment for Arvind Lea, a 62 year old male, for discussion of his familyhistory of a known MSH6 gene mutation, 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 he presents to clinic today to further clarify his risks, anddetermine if he has also inherited this risk increasing mutation in the fam tyrell.HISTORY OF PRESENT ILLNESS:Arvind Lea is a 62 year old male [...] HISTORYProblem Relation Age of Onset- Breast Cancer Ajpsbc57- Cancer Mother 35 endometrial- Breast Cancer Sister 42- Cancer Brother 54 adrenal cortical- Genetic Brother Matt syndrome MSH6- Cancer Maternal Grandmother 83 pancreas- Colon Cancer Paternal Grandfather 50The patient's maternal ancestors are of unspecified descent andpaternal ancestors are of Grenadian, Uz[place], and Danish descent. There is noAshkenazi Lutheran ancestry. 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 If the mutationindicating Matt Syndrome is detected in the patient, the [facility] recommendations would include increased cancersurveillance options. If a mutation is detected, the patient will be referredback to the referring provider and to any additional appropriate care providersto discuss the relevant options.We discussed that given the patient'sfamily history of early onset breastcancer in his [...] SDHD, SMAD4, SMARCA4, STK11,TP53, TSC1, TSC2, VHL.Per thepatient's request, we will contact him by telephone to discuss theseresults. A follow up genetic counseling visit will be scheduled if requested.The patient was seen for a total of 40 minutes, greater than 50% of which wasspent hrqy-kb-awpt counseling. This plan is being carried out per Dr. Valle's recommendations. This note will also be sent to the referring providervia the electronic medical record.Soren Curtis, MS, [facility], Licensed Genetic CounselorEPIC CC:Dr. Apurva Guerrero BY US MAIL:Dr. Saul Min[address] [place] [address]Nkgqpyynq Provider: SAUL MIN [[id number]]Allergies As of Date: 11/13/2017 Noted Allergy ReactionCECLOR (CEFACLOR) 11/13/2011 5 - IntoleranceDate Reviewed: 01/03/2012Reviewed by: Sujatha (Rn) JENNIE Haque - Fully AssessedPrimary Visit Diagnosis:Family history of Matt syndrome [Z80.0] Other Visit Diagnosis:Family history of malignant neoplasm of breast [Z80.3]Order(s):TUBES-DRAW EXTRA MOLECULAR [SQMXTUBE] Order #: [id number] FUTUREPrescriptions as of 11/13/2017 Sig: * FLONASE NASAL Use in the nose as needed. * GABAPENTIN 300 MG CAPSULE 300 mg three times daily.Problem List As Of Date 11/13/2017 Noted Resolved Cervical neuritis [M54.12] INVALID FOR* Cervical spondylosis without myelopathy [M47.81*INVALID FOR*Follow-up and Disposition History RecordedEncounter Number: [id number] Status:Closed by SOREN CURTIS on 11/13/17NoKindred Hospital [facility] Molecular Teston 48-93-8048NkviNZLZAV HEREDITARY CANCERS PANELNormLake County Memorial Hospital - WestComment on above:Performed By: #### MOL13 ####[facility] [place], [place] [phone] ResultsView results in Scanned Documents link when available.NormalCleWestern Reserve HospitalComment on above:Performed By: #### MOL13 ####[facility] [place], [place] [phone] [phone] ID: [id number]: Soren ([facility]) Cindyervice: (none)Author Type: Genetic CounselorType: Progress NotesFiled: 11/27/2017 9:08 AMNote Text:[facility] GENOMIC MEDICINE RACHELCenter For Personalized Genetic HealthcareConsultation NoteGenetic Counselor: Soren Curtis, , LGCPatient: Arvind SorianoeMRN: [id number] Name and confirmed at initiation of visitHIGH [...] consultation for genetic counseling andrisk assessment for Arvind Lea, a 62 year old male, for discussion ofhis family history of a known MSH6 gene mutation, confirming LynchSyndrome in this family. he presents to clinic today to further clarifyhis risks, and determine if he has also inherited this risk increasingmutationin the family.HISTORY OF PRESENT ILLNESS:Arvind Lea is a 62 year old male with no personal history of cancer.As noted in the family history section, the patient has a family historyof Matt Syndrome.PAST MEDICAL HISTORYDiagnosis Date- Ruptured disc, cervical- Seasonal allergiesPAST SURGICAL HISTORYProcedure Laterality Date- NONECANCER SURVEILLANCE HISTORY:Colonoscopy: Yes / 9 years agoEGD: NoGI Polyps: NoProstate Cancer surveillance: Yes / 2018Dermatology: Yes / 2 years ago; dysplastic nevi [...] of unspecified descent andpaternal ancestors are of Grenadian, Uzbek, and Danish descent. There is noAshkenazi Lutheran ancestry. There is no known consanguinity.A copy of the patient's pedigree will be available under the scanneddocumentstab following today's visit.GENETIC COUNSELING RISK ASSESSMENT, DISCUSSION, AND SUGGESTED FOLLOW UP:We reviewed the natural history and genetic etiology of Matt Syndrome.The patient has a 50% chanceof having the same MSH6 mutation (c.1691C>A(p.Ubs003*)) that was identified in his brotherWe discussed that identification of this family specific mutation willhelp his care providers tailor the patient's medical management. If themutation indicating Matt Syndrome is detected in the patient, the[facility] recommendations would includeincreased cancer surveillance options. If a mutation is detected, thepatient will be referred back to the referring provider and to anyadditional appropriate care providers to discuss the relevant options.We discussed that given thepatient's family history of early onset breastcancer in his sister and cancers on both sides of hisfamily, there is apossibility he could be at risk of having a hereditary cancerpredisposition mutation other than the previously identified XSA5fpkozwlm. For this reason, we discussed the option of panel testing.After considering the risks, benefits, and limitations, the patientprovided informed consent for the following testing: Common HereditaryCancers Panel through [employer].This panel will analyze APC, DOLORES, AXIN2, BARD1, [...] minutes, greater than 50% of whichwas spent aznp-dq-sbfe counseling. This plan is being carried out per Dr.Charis Rodriges's recommendations. This note will also be sent to thereferring provider via the electronic medical record.Soren Curtis, MS, [facility], Licensed Genetic CounselorEPIC CC:Dr. Apurva Guerrero BY US MAIL:Dr. Saul Lewis [address] [place] [address] [facility] Hospital - CantonALLERGEN - CAULIFLOWERon 01-56-0641GMATSEREXSK, IGE<0.35Normal<0.35Pathology Laboratories IncCLASSCLASS 0NormalPathology Laboratories IncComment on above:Result Comment: Analytical and performance characteristics have beenestablished by [facility]. It has notbeen cleared or approved by the FDA. The FDA hasdetermined that such clearance or approval is notnecessary. This test is used for clinical purposes.It should not be regarded as investigational or research.INTERP FOR [facility] ALLERGEN TESTING:on 42-68-5957SIEWJZ FOR [facility] ALLERGEN TESTINormalPathology Laboratories IncComment on above:Result Comment: CLASS RANGE(ku/L) INTERPRETATION 0 <0.10 Normal, no specific IgE identified 0/1 0.10-0.34 Equivocal, indeterminate significance 1 0.35-0.69 Low level specific IgE 2 0.70-3.49 Moderate level specific IgE 3 3.50- 17.49 High level specific IgE 4 17.50-49.99 Very [...] with out of range flagging. Testing performed onHome Inventory S[pecialists using ImmunoCAP Specific IgE reagents. * If Antibodies are followed by an asterisk (*) they have been developed and their performance characteristics determined by [facility] ([facility]). They have not been cleared or approved by the U.S. Food and Drug Administration (FDA). The FDA has determined that such clearance or approval is not necessary. These assays are intended to be used for clinical purposes. Analyte specific reagents were used. They should not be regarded as investigational or for research. [facility] is regulated under the Clinical Laboratory Improvement Amendments of 1988 (CLIA) as qualified to perform high complexity clinical testing.[facility]. [address] [place], [place] [address]Laboratory Director: Kai Mccollum. [id number] [facility] Accreditation No. [id number] IgEon 81-05-0512IVICYC IgE<0.10Normal<0.35 Pathology Laboratories IncAPPLE IgEon 93-98-4487MVKNK5WsasexCnrkjvkux Laboratories IncComment on above:Result Comment: Test performed at [facility] [address] [place] [address] [place] Number [id number] CAP Accreditation Number [id number] APPLE IgE<0.10Normal<0.35Pathology Laboratories IncBRAZIL NUT IgEon 05-22-2017 BRAZIL NUT IgE<0.10Normal<0.35[facility] IncBROCCOLI IgEon 72-35-7129BPMJGSZR IgE<0.10Normal<0.35[facility] IncCABBAGE, IgEon 26-53-7915MXXPAGD IgE<0.10Normal<0.35[facility] IncCARROT IgEon 49-77-0943ZLVPJW IgE<0.10Normal<0.35[facility] IncCASHEW NUT IgEon 38-24-1271DHWRAT NUT IgE<0.10Normal<0.35[facility] IncCOCONUT IgEon 20-79-6387HNQXHQN IgE<0.10Normal<0.35[facility] IncGRAPE IgEon 69-39-2072MKFRC IgE<0.10Normal<0.35[facility] IncGRAPEFRUIT IgEon 15-88-6810SSUPWPVHPE IgE<0.10Normal<0.35[facility] Laboratories IncHAZEL NUT/FILBERT IgEon 52-48-4874ZEOZB NUT/FILBERT IgE<0.10Normal<0.35[facility] Laboratories IncIMMUNOGLOBULIN Tr 68-49-8370Scfodwfz29 KU/LNormal<=219Pathology Laboratories IncComment on above:Result Comment: Test performed at [facility] [address] [place] [address] CLIA Number [id number] CAP Accreditation Number [id number] IMMUNOGLOBULINSon 65-90-5212LuZ588 mg/pFEulafd09-740Zxhtotmtj Laboratories Inc PnY6601 mg/qZYriwhz303-1214Ugqnbbpyt Laboratories IncComment on above:Result Comment: Test performed at [facility] [address] [place] [address] CLIA Number [id number] CAP Accreditation Number [id number] WzI998 mg/tOPckidc46-673Ecqczwokw Laboratories IncLATEX IgEon 04-36-8682TBABM IgE<0.10Normal<0.35[facility] Laboratories IncLETTUCE IgEon 45-24-1983QSLVQSD IgE <0.10Normal<0.35[facility] IncORANGE IgEon 72-82-5354QYHWKM IgE<0.10 Normal<0.35Path[facility] Laboratories IncPEANUT IgEon 00-94-2821GRBUY0/1Normal Pathology Laboratories IncComment on above:Result Comment: Test performed at [facility] [address] [place] [address] CLIA Number [id number] [facility] Accreditation Number [id number] PEANUT IgE0.11 KU/LHigh<0.10Pathology Laboratories IncPECAN NUT IgEon 05-22-2017 SOUHM0IabjjfArznztgzo Laboratories IncComment on above:Result Comment: Test performed at [facility] [address] [place] [address] CLIA Number [id number] CAP Accreditation Number [id number] PECAN NUT IgE<0.10Normal<0.35Pathology Laboratories IncPISTACHIO NUT IgEon 84-05-4668RHNVEZEPS NUT IgE<0.10Normal<0.35[facility] IncSTRAWBERRY IgEon 75-82-7760BGRYUITHHK IgE<0.10Normal<0.35[facility]ology Laboratories IncWALNUT IgEon 96-38-1068NMFACA IgE<0.10Normal<0.35[facility] IncANTI NUCLEAR ANTIBODIESon 43-73-1852XZHC NUCLEAR ANTIBODIESNegativeNormalNEGATIVE AT 1:80 Path[facility] Laboratories IncComment on above:Result Comment: TESTED BY IFA ON HEP- 2 CELLS.TRYPTASEon 30-35-7000KKWACQMV3 ug/LNormal<11[facility] ALT-SGPTon 67-29-8407Lqtfvei aminotransferase (ALT)23 U/LNormal5-59Pathology Laboratories IncC REACTIVE PROTEIN (INFLAMMATORY)on 05-18-2017C reactive protein (CRP)14.00 mg/LNormal<20.0Pathology Laboratories IncCBC W/AUTO DIFFon 05-18-2017% CMRXPPRYIPC53.4 %NormalPathology Laboratories IncABS BASOPHILS0.1 K/ulNormal0.0-0.1Pathology Laboratories IncBasophils/100 WBC Auto (Bld)1.3 % NormalPathology Laboratories IncComment on above:Result Comment: MANUAL DIFFERENTIAL PERFORMEDEosinophils0.3 10*3/uLNormal0.1-0.4Pathology Laboratories IncEosinophils/100 leukocytes5.3 %NormalPathology Laboratories IncErythrocyte distribution width Auto Ratio (RBC)12.9 %Arzeck22.8-14.8Pathology Laboratories IncErythrocytes (RBC)5.45 10*6/uLNormal4.00-5.50[facility] Hematocrit (HCT)47.5 %Xyymfq41.4-51.0Pathology Laboratories IncHemoglobin mass conc (Bld)16.2 g/lQClgtiy65.8-17.0Pathology Laboratories IncLymphocytes1.5 10*3/uLNormal0.8-5.2Pathology Laboratories IncLymphocytes/100 .3 % NormalPathology Laboratories OqwORN23.7 srQddsow20.0-34.0Pathology Laboratories IncMCHC mass conc (RBC)34.1 g/xIOuijyf45.0-36.0[facility] RicWVE18.2 iHLwzrrt72.-100.Pathology Laboratories IncMonocytes0.5 10*3/uLNormal0.1-0.9 Path[facility] Laboratories IncMonocytes/100 leukocytes8.2 %NormalPathology Laboratories IncNeutrophils3.1 10*3/uLNormal1.3-9.1[facility] Nnbgoyggw951 10*3/kTKraryc068.-450.Pathology Laboratories IncWBC (Leukocytes)5.5 10*3/uLNormal3.7-10.8[facility] IncCREATININE WITH GFRon 05-18-2017 Creatinine1.2 mg/dLNormal0.5-1.3[facility] Laboratories InceGFR (black)75 mL/min/{1.73_m2}Normal>60[facility] InceGFR (non-black)62 mL/min/{1.73_m2}Normal>60Pathology Laboratories IncComment on above:Result Comment: * ESTIMATED GFR (eGFR) IS CALCULATED FROM SERUM CREATININE AND OTHER VARIABLES AFFECTING ITS VALUE (AGE, RACE, AND SEX). * FOR PATIENT WITH ESTABLISHED CHRONIC KIDNEY DISEASE, THE CHART BELOW DEFINES STAGES WITH eGFR VALUES. Stage 1 90 mL/min/1.73 m2 or greater Stage 2 60-89 mL/min/1.73 m2 Stage 3 30-59 mL/min/1.73 m2 Stage 4 15-29 mL/min/1.73 m2 Stage 5 14 mL/min/1.73 m2 or lessRHEUMATOID FACTORon 92-11-4490GMMMEGUVFH FACTOR<10Normal<14Pathology Laboratories IncSED RATEon 80-00-9432UTW RATE12 mm/hrNormal0-20Pathology Laboratories IncTSHon 25-39-9820Kfhiwvs stimulating hormone (TSH)1.980 uIU/mL Normal0.40-4.40[facility] Inc Vital Signs Date TimeVital SignValuePerforming GdzqjktbpQgtxnmxc76-66-9021 08:13-0400Body vceetd818.34 cmDavid Mechelle DO Work Phone: [phone]10-14-2025 08:13-0400 Body mass index (BMI) [Ratio]7.9 kg/h3Jimrpmoisés Min DO Work Phone: [phone])[address]10-14-2025 08:13-0400 Body .6 [degF]Saul Min DO Work Phone: [phone])[address]10-14-2025 08:13-0400 Body wupxjt12 kgDavimoisés Min DO Work Phone: [phone])[address]10-14-2025 08:13-0400 Diastolic blood mm[Hg]Saul Min DO Work Phone: [phone])[address]10-14-2025 08:13-0400 Heart rate70 /minDavid Timoteoadela DO Work Phone: [phone])98381 [address]10-14-2025 08:13-0400 SaO2% (BldA) [Mass fraction]97 %Saul Mahmoodadela DO Work Phone: [phone])[address] [place], [place] 1363910-14-2025 08:13-0400 Systolic blood laubdgif536 mm[Hg]Saul Min DO Work Phone: 1(994)[address] [place], [place] 1363911-08-2024 12:33-0500 Body awryvy856.34 cmDaely Mahmoodadela DO Work Phone: [phone])[address] [place], [place] 1363911-08-2024 12:33-0500 Body mass index (BMI) [Ratio]38.2 kg/v6Nqcic Giradela DO Work Phone: 1(853)[address] [place], [place] 1363911-08-2024 12:33-0500 Body rnndosfxlkf32.7 [degF]Saul Min DO Work Phone: 1(750)[address] [place], [place] 1363911-08-2024 12:33-0500 Body hhcobt484.28 kgDaely Mahmoodadela DO Work Phone: 1(314)[address] [place], [place] 1363911-08-2024 12:33-0500 Diastolic blood mm[Hg]Saul Min DO Work Phone: 1(271)[address] [place], [place] 1363911-08-2024 12:33-0500 Heart rate61 /Lucinda Timoteoadela DO Work Phone: [phone])[address] [place], [place] 1363911-08-2024 12:33-0500 Respiratory rate16 /Theronmoisés Mahmoodadela DO Work Phone: [phone])[address] [place], [place] 1363911-08-2024 12:33-0500 SaO2% (BldA) [Mass fraction]99 %Saul Min DO Work Phone: [phone])[address] [place], [place] 1363911-08-2024 12:33-0500 Systolic blood okveeogd729 mm[Hg]Saul Min DO Work Phone: 1(547)[address] [place], [place] 1363910-15-2024 08:17-0400 Body mass index (BMI) [Ratio]36.6 kg/m2DO Saul Min Work Phone: 1(425)[address] [place], [place] 1363910-15-2024 08:17-0400 Body csuelpdfbki98.5 [degF]DO Saul Min Work Phone: [phone])[address]10-15-2024 08:17-0400 Diastolic blood smgycaie20 mm[Hg]DO Saul Min Work Phone: 1(185)[address] [place], [place] 1363910-15-2024 08:17-0400 Heart rate80 /RayaO Saul Min Work Phone: [phone])[address] [place], [place] 1363910-15-2024 08:17-0400 Respiratory rate18 /RayaO Saul Min Work Phone: [phone])[address] [place], [place] 1363910-15-2024 08:17-0400 SaO2% (BldA) [Mass fraction]98 %DO Saul Min Work Phone: [phone])[address] [place], [place] 1363910-15-2024 08:17-0400 Systolic blood zdalnwud193 mm[Hg]DO aSul Min Work Phone: 1(682)[address] [place], [place] 1363910-15-2024 08:05-0400 Body riwsfb594.88 cmDO Saul Min Work Phone: 1(268)[address] [place], [place] 1363910-15-2024 08:05-0400 Body oxoewv496.46 kgDO Saul Min Work Phone: [phone])[address] [place], [place] 1363910-11-2023 08:50-0400 Body .88 cmDaely Min Other [employer] Other 10-11-2023 08:50-0400Body mass index (BMI) [Ratio] 36.48 kg/b2Jwnyiely Min Other [employer] Other 10-11-2023 08:50-0400Body bxptndsilyt25.5 [degF]Saul Min Other [employer] Other 10-11-2023 08:50-0400Body akfbsf816.02 kgDaely Mahmoodvin Other [employer] Other 10-11-2023 08:50-0400Diastolic blood udyjsjsi14 mm[Hg] Saul Min Other [employer] Other 10-11-2023 08:50-0400Respiratory rate18 /minDhannah Min Other [employer] Other 10-11-2023 08:50-5814IiT7% (BldA) [Mass fraction]99 % Saul Min Other [employer] Other 10-11-2023 08:50-0400Systolic blood ufckvyda854 mm[Hg] Saul Min Other [employer] Other Encounters Encounter DateEncounter TypeCare ProviderFacilityStart: 03-02-2025 End: 63-19-6085vhtqwbpcwcHyill Girvin DO Work Phone: [facility] Work Phone: Start: 03-02-2025 End: 23-30-8706Vevizps encounter procedureDaely Min DO-[facility] [place] Work Phone: Start: 70-20-1974Sga-patient / Non-visitDaely Min DO-[facility] Work Phone: Start: 03-01-2025 End: 83-16-9095uymodsyeyoBtsjk Girvin DO Work Phone: [facility] Work Phone: Start: 03-01-2025 End: 42-30-2876Zaixyldg ReferredDaely Min DO-[facility] [place] [facility] Start: 03-27-2024 End: 69-14-6595eghosuigspKgllu Girvin DO Work Phone: [facility] Work Phone: Start: 03-27-2024 End: 71-98-0141Ayiczhn encounter procedureDaely iMn DO Work Phone: [facility] Urgent [facility] Yevgeniy Work Phone: Start: 64-61-9688Foqgfpv encounter statusDaely Min DO Work Phone: [facility] 03-03-2024 End: 98-36-0298lhtmuatpimMZ Saul Min Work Phone: [facility] Work Phone: Start: 03-03-2024 End: 01-86-1849Skoljuafw for general adult medical examination without abnormal findingsDaely Min DO Work Phone: [facility]: 03-03-2024 End: 41-29-2058Jmmpsqi encounter procedureDO Saul Min Work Phone: [facility] [place] Work Phone: Start: 02-28-2024 End: 98-84-6841jhikpkbbxbOH Saul Min Work Phone: [facility] Work Phone: Start: 02-28-2024 End: 75-96-1193Nitrylq encounter procedureDO Saul Min Work Phone: [facility]: 06-06-2023 End: 62-56-9917okrjnmbzidQvmcz Girvin Other [employer] Other Start: 16-30-7819Wvwwyxkoa encounterDaely MinTUCSON [facility] [place]: 06-05-2023 End: 26-90-9731mbpgclklxaQlcbq Girvin Other [employer] Other Start: 32-31-2538Tmnnhncfr encounterDaely Shel[place] [facility] [place]Start: 06-04-2023 End: 81-95-4239ootrktsmozZHKUU C GIRVINNot AvailableStart: 05-29-2023 End: 23-82-7811rhcyrywkbtIubgr Girvin Other [employer] Other Start: 51-76-4985Mmfqyauqw encounterDaely Shelton [facility] [place]Start: 04-23-2023 End: 13-85-1937iruieqzkfgXljlf Girvin Other [employer] Other Start: 05-21-7564Mcmbzmuxj encounterDaely Shelton [facility] [place]Start: 02-27-2023 End: 34-53-1238xokrzkuimoFiejn Girvin Other [employer] Other Start: 30-94-3062Xvivewzpz by computer linkJohnnieely Shelton [facility] [place]Start: 03-47-0821Gkbwfn outpatient visit 15 minutesDaely Shelton [facility] [place]Start: 02-02-2023 End: 54-58-8734sbtahnheyrZN David Girvin Work Phone: [facility] Work Phone: Start: 02-02-2023 End: 31-69-3433Sfdvsyvq ReferredDO Saul Min Work Phone: [facility] Work Phone: Start: 06-01-2021 End: 95-31-6591bhkehkbqnwUZAda MINFacility:L7Eqmby: 11-13-2017 End: 31-57-8639YqwzixhxsiTTPNFDT ([facility]) [facility] Glez Procedures DateProcedureProcedure DetailPerforming ClinicianStart: 33-30-4772Aovlejzs identified in Urine by Natalia Min Work Phone: Start: 28-24-7489Voycy Doris Min DO Work Phone: Plan of Treatment DateCare ActivityDetailAuthorStart: 73-38-2825Knohlpkp identified in Urine by CultureUrine [facility] Centertart: 46-22-4503Kjxnu [facility] Hospitaltart: 71-02-4754Qjrmbrq referral [facility] Work Phone: Start: 16-58-3570Rynbevri identified in Urine by CultureParkview HealthAdenosine monophosphate.cyclic [Moles/volume] in Serum or [facility] HospitalComprehensive metabolic 1999 panel - Serum or [facility] HospitalComprehenve metabolic 1999 panel - Serum or Genesis HospitalCT HeartSamaritan North Health CenterPatient referral [facility] Work Phone: Rheumatoid factor [Units/volume] in Serum or Plasma [facility] CenterUrine [facility] Urine [facility]opedic CenterUrine [facility] Orthopedic CenterXR Cervical spine Views W flexion and W extensionSamaritan North Health CenterXR Foot - right GE 3 ViewsHCA [facility] Immunizations Immunization DateImmunizationNotesCare BvggwythLihrhmah36-22-0357Jiicsqnjg, injectable, Madin [place] Canine Kidney, preservative free, quadrivalentDO Saul Min Work Phone: [facility]01-15-2020influenza, seasonal, injectableDavimoisés Min Other [facility]11-26-2018Influenza, injectable, Madin Remedios Canine Kidney, preservative free, quadrivalentDO Saul Min Work Phone: [facility] Payers DatePayer CategoryPayerPolicy [id number]-zcu [id number] [id number] Health InsuranceCisouth central regional medical center Health Claims-[id number] Social History DateTypeDetailFacilityTobacco smoking status NHISUnknown if ever smokedUniversity Hospitals Health System Work Phone: Start: 11-92-0393Ftf [facility] Ass[facility] At [facility] [employer] Other Start: 09-21-2023 End: [id number] smoking status NHISNever smoked tobacco (finding) [facility]: [id number] (finding)[facility] Clinical Notes 10-12-2011 to 03-02-2025 Note Date & [id number] Evaluation note* Author Saul Min [facility] CenterAuthoredOctober 2024 9:18amThe above note written by ___Kathe Lloyd____ acting as human recorder, note dictated by Dr. Cruz .I performed the above HPI, ROS, and Examination. I formulated and dictated the treatment plan and was present for entire encounter. Saul Min D.O. [facility] Work Phone: [phone] 291-464810-15-2024 Evaluation note* Author Saul Min [facility] CenterAuthoredOctober 2023 8:18amThe above note written by ___Kathe Lloyd____ acting as human recorder, note dictated by Dr. Cruz .I performed the above HPI, ROS, and Examination. I formulated and dictated the treatment plan and was present for entire encounter. Saul Min D.O. [facility] Work Phone: [phone]) 472-203201-18-2024 Evaluation note* Encounter Date Diagnosis Assessment Notes Treatment Notes Treatment Clinical Notes May, Menieres disease (ICD-10 - H81.0 9) [employer] Other 01-10-2024 Evaluation note* Encounter Date Diagnosis Assessment Notes Treatment Notes Treatment Clinical Notes May, Calf pain (ICD-10 - M79.669) May,Knee pain, left (ICD-10 - M25.562) [employer] Other 10-11-2023 Evaluation note* Encounter Date Diagnosis Assessment Notes Treatment Notes Treatment Clinical Notes Feb, Hyperlipidemia (ICD-10 - E78.5) Discussed [...] is doing as it is working well. Feb,ervical pain (ICD-10 - M54.2)He does continue to use and benefit from the above medication. 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 He was advised to soak his hands in warm water if needed. He feels that he has arthritis, there is not a lot that can be done for arthritis. Heat will help this issue. He feelsit is age related and not related to rheumatoid arthritis. Feb,Weight gain (ICD-10 - R63.5)He is eating less at this time to help keep his weight off. He can feel he is losing muscle tone sohe is going to work on this when he works out. I did recommend that he do resistence training. He sh ould increase his intake of protein. He should make 50% of his exercise resistance training. He hasgained four pounds since last seen here. He had cut back on red meat and can instead eat lean meats. He has cut back on portion sizes and can continue with this. Cut back on intake of carbs and sugars. Eat more of a keto type diet. I did recommend he work on balance training as well. Feb,Encounter for prostate cancer screening (ICD-10 - Z12.5)His PSA is 1.110. No sign of prostate cancer at this time. Feb,OtherHis CO2 level is 31.9 which is elevated on the lab draw, but I suspect that this is a lab error. Dales not wake up gasping for air and only snores occasionally or if he has rolled onto his back andis laying flat. He feels rested once he is up for the day.He is going to see a steelworker for evaluation of lesions on his face. I did advise him that these are seborrheic keratosis. These are becoming bothersome for him, and they itch but do not bleed. I did recommend he get a pneumonia, flu and Shingrix vaccine. Also recommended he research the RSV vaccine. [employer] Other 05-25-2012 History general Narrative - Reported* Type Description Date Medical History 2008 colonoscopy/ normal/ Dr. Miki whelan Medical Historystress test 2006?Medical HistoryMRI of the Cervical Spine without [facility]rast [facility] [place]erv[place] Spine [place]-Ray [facility]11[facility] [place] Lumbar painMedical HistoryHX Cervical painMedical HistoryHX palpitationsMedical HistoryHx of right Achilles tendon tearMedical History PsoriasisMedical HistoryColonoscopy 08/27/18 Dr. GrajedaSurgical History Colonoscopy, repeat in 2028, Dr. [id number] [facility] [employer] Other Evaluation noteNo assessment information available [facility] Work Phone: Evaluation noteNo InformationNortPenn State Health Rehabilitation Hospital [employer] Other Evaluation note* Diagnosis Onset Date Resolution Status Cervical pain acuteElevated PSAacuteFoot pain, rightacuteHyperlipidemiaacuteKnee pain, left acuteNumbness and tingling of both upper extremitiesacuteOther abnormal blood chemistryacutePain of right heelacuteWeight gainacute [facility] Work Phone: Evaluation note* Diagnosis Onset Date Resolution Status Admit Date Cervical pain acuteOctober 2024 8:16amElevated PSAacuteOctober 2024 8:16amFoot pain, rightacuteOctober 2024 8:16amHyperlipidemiaacuteOctober 2024 8:16amMedicare annual wellness visit, initialacuteOctober 2024 8:16am Menieres diseaseacuteOctober 2024 8:16amOther abnormal blood chemistry acuteOctober 2024 8:16amPain of left thumbacuteOctober 2024 8:16am PolyarthralgiaacuteOctober 2024 8:16amToe painacuteOctober 2024 8:16amWeight gainacuteOctober 2024 8:16am [facility] Work Phone: Reason for referral (narrative)No reason for referral information availableMercy Health Lorain Hospital Work Phone: Reason for visit Narrativewellness/review community outreach [facility] [employer] Other Summary Purpose Family History No Family History Records Found Relationship Condition Age at Onset Recorded Date/T valdemar father Unknown grandparentDiabetes mellitusUnknownParkinson's diseaseUnknowngrandparent Malignant neoplasmUnknowngrandparentDeceasedUnknownMalignant neoplasmUnknown motherDeceasedUnknown Relationship Condition Age at Onset Recorded Date/T valdemar father Unknown grandparentDiabetes mellitusUnknownParkinson's diseaseUnknownMalignant neoplasm UnknownDeceasedUnknowngrandparentDeceasedUnknownfatherMalignant neoplasmUnknown DiverticulitisUnknownmotherAlzheimer's diseaseUnknownDementiaUnknownbrother Malignant neoplasm of adrenal glandUnknownsisterMalignant neoplasm of breast UnknownbrotherMalignant neoplasmUnknownHistory of spinal surgeryUnknownsister Malignant neoplasmUnknownHistory of knee joint replacementUnknown Advance Directives No Advanced Directives Records Found Advance Directive Response Recorded Date/ Time Advance Directives No June 01, 2021 1:42pm Advance Directive Response Recorded Date/ Time Advance Directives No June 01, 2021 12:42pm Chief Complaint and Reason for Visit Chief Complaint cbc psa Chief Complaint Z79.899 Z12.5 R63.5 E78.5 R35.1 Chief Complaint Z79.899 Z12.5 R63.5 E78.5 R35.1 yearly/review labsReason for VisitCervical pain Elevated PSA Foot pain, right Hyperlipidemia [...] Allergic rhinitis March 27, 2024 1 2:11pm Chief Complaint Admit Date Medicare AWV Initial/review labs March 02, 2025 8:16am Reason for Visit Admit Date Cervical pain March 02, 2025 8 :16am Elevated PSA March 02, 2025 8 :16am Foot pain, right March [...] Weight gain March 02, 2025 8 :16am Chief Complaint Admit Date Unknown March 01, 2025 1 1:54am Medicare AWV Initial/review labs March 02, 2025 8:16am Reason for Referral Reason appt please conta ct pt to scheduled appt discuss treatment for medial meniscus tear lt knee Diagnosis 1 Tear of medial menis cus of left knee (S83.242A) Referral Organization [facility] [place] Referring Provider First Name Saul Referring Provider Last Name Mechelle Referring Provider Specialty Family Prac ozzy Referred Organization Unknown Facility Referred Provider Maurilio Coley Referred Provider Specialty Orthopaedic Surgery Referral Priority Routine General Notes Taylor Joshi 06/17/2023 04:49:41 PM > referral faxed thru [facility] with visit note, TE message, MRI report and insurance card to Dr Coley at [phone] for the [place] office. pt understands he will be contacted to schedule this appt. Additional Source Comments (unrecognized sect ion and content) No Status Records FoundNo Status Records FoundNo Status Records FoundNo Status Records FoundNo Status Records Found INFORMATION SOURCE (unrecogn ized section and content) DATE CREATED AUTHOR 11/12/2017 [facility] DATE CREATED AUTHOR AUTHOR'S ORGANIZ ATION 11/27/2017 [facility] DATE CREATED AUTHOR AUTHOR'S ORGANIZ ATION 06/05/2021 [facility] DATE CREATED AUTHOR AUTHOR'S ORGANIZ ATION 06/09/2023 [facility] DATE CREATED AUTHOR AUTHOR'S ORGANIZ ATION 03/06/2025 [facility] Care Teams (unrecognized sec tion and content) Team Status: Active Member Role Status Dates Saul Mahmoodadela DO Primary Care Provider Active Team Status: Inactive Member Role Status Meeta Saul Min DO Primary Care Provider Active S tart: March 01, 2025 End: March 01, 2025Daindiamoisés Min DOAttending ProviderActiveStart: March 01, 2025 End: March 01, 2025 Team Status: Active Member Role Status Meeta Salu Min DO Primary Care Provider Active S tart: March 01, 2025 Saul DO MechelleAttending ProviderActiveStart: March 01, 2025 Team Status: Inactive Member Role Status Meeta Saul Min DO Primary Care Provider Active S tart: March 02, 2025 End: March 02, 2025Daely Mechelle DOAttending ProviderActiveStart: March 02, 2025 End: March 02, 2025 Team Status: Inactive Member Role Status Meeta Mahmoodadela DO Primary Care Provider Active Outreach CommunityAttending ProviderActive Team Status: Inactive Member Role Status Meeta Saul Min DO Primary Care Provide r, Attending Provider Active Start: February 28, 2024 End: February 28, 2024 Team Status: Inactive Member Role Status Meeta Saul Min DO Primary Care Provide r, Attending Provider Active Start: March 03, 2024 End: March 03, 2024 Team Status: Inactive Member Role Status Meeta Min DO Primary Care Provider Active S tart: March 27, 2024 End: March 27mandyon Coronado APRNAtnawaf ProviderActiveStart: March 27, 2024 End: March 27, 2024 [...] (unrecogniz ed section and content) Update [employer] Ugetqlghfoty41/ 11 apptcritical resultlt knee painClinical Acute IllnessClinical [...] BE BASED ON THE PRIMARY CLINICAL RECORDS. [facility]. provides no warranty or guarantee of the accuracy or completeness of information in this document.
--- OUTSIDE RECORDS SUMMARY | 2025-03-12 09:16 | XMS_ITS | Patient Health Record ---
Author Organization [facility] Address [address] [place] [address] Care Team Providers Care Telephone Order Clerk Name Role Phone Maurilio Coley Unavailable [phone] Reason For Referral No Information Social History Tobacco Use: Social History Observation Description Date Details (start date - stop date) Never Smoker NA - NA Smoking History Question Answer Notes Smoking Status NonSmoker Problems Problem Type SNOMED Code ICD Code Onset Dates Problem Status W/U Status Risk Notes Problem [id number] Primary osteoarthritis of left knee (M17.12) [id number] disease of medial meniscus of left knee (M23.304)Activeconfirmed Plan Of Treatment No Information Insurance Providers Payer Name Payer Address Payer Phone Subscriber Number Group Number Insured Name Patient Relationship to Insured Coverage Start Date Coverage End Date [facility] [address] [address] [place] [address] [id number] ARVIND LEA Self - patient is the insured Medical (General) History Medical History History ICD Code Abnormal Heart Rhythm: Yes Chronic back pain:: YesCPAP Machine:: NoHealthcare worker: NoIrregular heartbeat: : YesLatex Allergy: NoSciatica: YesHave you been in close contact with someone who has had MRSA within the last year?: NoHave you ever had or presently have MRSA?: NoHave you been seen by a dentist in the last year?: YesDo you have any dental problems i.e. Broken, loose, or chipped teeth, absess, gum disease?: No
--- OUTSIDE RECORDS SUMMARY | 2025-03-12 09:18 | XMS_ITS | Clinical Summary ---
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 [employer] Name Role Phone Pipo Irizarry MD Primary Care Provider [phone] Social History Tobacco UseTypesPacks/DayYears UsedDateSmoking Tobacco: Never AssessedSex and Gender InformationValueDate RecordedSex Assigned at BirthNot on fileLegal Sex Male08/01/2022 7:26 PM EDTGender IdentityNot on fileSexual OrientationNot on file Plan of Treatment Not on file Insurance * Guarantor: Jason MoralesAccount TypeRelation to PatientDate of BirthPhone Billing AddressPersonal/XzlhpaHwya60/17/1956 [address] [address] [place] [address] Care Teams Team MemberRelationshipSpecialtyStart DateEnd Date Pipo Irizarry MD [address] [place] [address] PCP - General05/30/23
[2025-03-12 10:29] LABS: Uric Acid 5.4 mg/dL (3.5-7.2)
[2025-03-13 11:09] LABS: Anti-CCP Ab, IgG/IgA 9 units (0-19)
[2025-03-16 09:09] LABS: Antinuclear Antibodies, IFA Negative (.)
== END 2025-03-12 09:11 | disposition home or self-care (01) ==
LOC: LAB 09:11
PROVIDERS: PCP Family Medicine; Visit Provider Family Medicine
DX: M25.50 Pain in unspecified joint (principal)
CPT/HCPCS: 36415; 84550; 85652; 86038; 86140; 86200; 86431